=== PATIENT | female | born 1935 | race Caucasian/White ===

== ENCOUNTER 2019-01-24 15:40 | Inpatient (IN) ==
[2019-01-24] MEDS ORDERED: SODIUM CHLORIDE 0.9% 500 ML IV SCH (17:15)
[2019-01-24 17:59] LABS: Basophils # (auto) 0.03 K/uL (0-0.2); Basophils % (auto) 0.5 %; Eosinophils # (auto) 0.25 K/uL (0-0.5); Eosinophils % (auto) 3.8 %; Hematocrit (blood only) 54.5 % (37-47); Hemoglobin 18.2 g/dL (12.0-16.0); Immature Granulocytes # (auto) 0.01 K/uL (0.00-0.02); Immature Granulocytes % (auto) 0.2 %; Lymphocytes # (auto) 1.29 K/uL (1.2-3.4); Lymphocytes % (auto) 19.5 %; Mean Corpuscular Hemoglobin 31.7 pg (25-34); Mean Corpuscular Hgb Conc 33.4 g/dL (32-36); Mean Corpuscular Volume 94.9 fL (80-100); Mean Platelet Volume 9.9 fL (7.4-10.4); Monocytes # (auto) 0.77 K/uL (0.11-0.59); Monocytes % (auto) 11.6 %; Neutrophils # (auto) 4.28 K/uL (1.4-6.5); Neutrophils % (auto) 64.4 %; Platelet Count 236 K/uL (130-400); RDW Coefficient of Variation 14.7 % (11.5-14.5); RDW Standard Deviation 51.2 fL (36.4-46.3); Red Blood Count 5.74 M/uL (4.2-5.4); White Blood Count 6.63 K/uL (4.8-10.8)
--- NOTE | 2019-01-24 18:16 | XRay Report ---
TWO VIEW CHEST CLINICAL HISTORY: Generalized weakness.. FINDINGS: PA and lateral chest radiographs are compared to study dated 01/24/2018. The examination is degraded by portable technique and patient rotation. A 2-lead cardiac pacemaker is unchanged in posit ion and partially obscures the left mid chest. The heart is enlarged noting atherosclerotic calcifica tion of the thoracic aorta. The pulmonary vasculature is noncongested. Emphysema and chronic intersti tial thickening are similar to previous. There is no airspace consolidation or large pleural effusion . There is no pneumothorax. The skeletal structures are osteopenic. The bony thorax appears intact. D egenerative change and scoliosis are noted in the thoracic spine. IMPRESSION: 1. Cardiomegaly and cardiac pacemaker. There is no radiographic evidence of congestive failure. 2. Emphysema. 3. There is no airspace consolidation or pleural effusion. Electronically signed by: Jd Kingsley M.D. 01/24/2019 6:15 PM
--- NOTE | 2019-01-24 18:19 | CT Scan Report ---
CT SCAN OF THE BRAIN WITHOUT IV CONTRAST CLINICAL HISTORY: Change in mental status. COMPARISON STUDY: No priors. TECHNIQUE: Unenhanced axial CT scan of the brain is performed from the vertex to the skull base. A do se lowering technique was utilized adhering to the principles of ALARA. CT DOSE: 537.48 mGy.cm FINDINGS: Brain parenchyma: There are age-related involutional changes noting advanced confluent subcortical a nd periventricular microangiopathic change. There is no hemorrhage, mass effect, or evidence of acute territorial ischemia by CT criteria. 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 Genao-white matter differentiation is preserved. No extra-axial fluid collection is seen. Mineralizati on is noted in the basal ganglia. Ventricles, sulci, cisterns: Prominent secondary to involutional change. Intracranial vasculature: There is atherosclerotic calcification of the cavernous carotid and vertebr al arteries. Calvarium: Unremarkable. Sinuses and mastoids: There is moderate mucosal thickening in the sphenoid sinus. Sclerosis of the si nus wall indicates chronicity. The remaining visualized paranasal sinuses are clear. The mastoid air cells are well pneumatized. Orbits: The bony orbits are grossly intact. IMPRESSION: Senescent changes as above with no hemorrhage, mass effect, or evidence of acute territor ial ischemia by CT criteria. Electronically signed by: Jd Kingsley M.D. 01/24/2019 6:18 PM
[2019-01-24 18:20] LABS: Alanine Aminotransferase 26 U/L (12-78); Albumin Level 3.7 gm/dl (3.4-5.0); Aspartate Aminotransferase 24 U/L (15-37); Blood Urea Nitrogen 31 mg/dl (7-18); Calcium 9.6 mg/dl (8.5-10.1); Carbon Dioxide 27 mmol/L (21-32); Chloride 106 mmol/L (98-107); Creatinine Clr Calc Pharmacy 15.2 ml/min; Est GFR (African American) 33.2; Est GFR (Non-African American) 28.6; Glucose 87 mg/dl (70-99); Magnesium 2.4 mg/dl (1.8-2.4); Potassium 4.4 mmol/L (3.5-5.1); Sodium 140 mmol/L (136-145)
[2019-01-24 18:31] LABS: Albumin Globulin Ratio 0.9 (0.9-2); Alkaline Phosphatase 100 U/L (45-117); Bilirubin,Total 0.5 mg/dl (0.2-1); Globulin 4.3 gm/dl (2.5-4.0); Troponin I < 0.015 ng/ml (0-0.045)
--- NOTE | 2019-01-24 18:45 | Emergency Department Note ---
Entered by Manisha Mcbride acting as a scribe for Jd Ascencio MD History of Present Illness General Chief complaint: Dizziness Stated complaint: DIZZY, CONFUSED, WEAKNESS Time Seen by Provider: 01/24/19 16:56 Source: patient and family History of Present Illness Onset (ago): week(s) 2 Location: head (dizziness) Pain Consistency: + intermittent ("waves") Quality: + other (worsening) Associated symptoms: + denies other symptoms (congestion, diarrhea, urinary sx), + confusion, + weakness and + other (recent left foot numbness, increased tiredness, low PO intake); no cough, no fever/chills and no nausea/vomiting The patient is an 83 year old female on Coumadin with a history of cardiac pacemaker, PAF, and tachy-jacque syndrome who presents to the Emergency Room with complaints of dizziness. The patient's family states she has been experiencing waves of intermittent dizziness for 1 year. The patient reports that her dizzi ness worsened in the past 2 weeks. She explains that her dizziness does not come on with changes of position or movement. She also reports equal strength in bilateral extremities. [place] the [place] when she began experiencing weakness and confusion. Family states that she could not remember who the president is or the day of the week even though she always gets her hair done on Fridays. She called her PCP and was sent to the ED. Additionally, the patient has been experiencing increased recent tiredness and low PO/fluid intake due to "holiday clancy". 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 Family also states that she was complaining of recent numbness in her left foot. The patient lives in a 1 story independent residence with a friend close in age. Of note, her last PCP visit was 1 week ago. She was recently placed on Meclizine. The patient is also very thin but explains that this is normal and that she is trying to gain weight. Additionally she reports that she does not have a history of stroke or UTI. She denies cough, congestion, fever, diarrhea, vomiting, and urinary sx. The patient and family offer no additional concerns at this time. Home Medications Home Medications Medication Instructions Recorded Confirmed Type aspirin 81 mg PO QAM 01/23/18 01/24/19 History cholecalciferol (vitamin D3) 2,000 unit PO QAM 01/23/18 01/24/19 History [Vitamin D3] metoprolol succinate 25 mg PO QAM #30 tab 01/23/18 01/24/19 Rx warfarin [Coumadin] 2.5 mg PO MOWEFR@0800 01/23/18 01/24/19 History meclizine 25 mg PO TID PRN 01/24/19 01/24/19 History warfarin 5 mg PO SUTUTHSA@0800 01/24/19 01/24/19 History Allergies Allergy/AdvReac Type Severity Reaction Status Date / Time No Known Allergies Allergy Unverified 01/24/19 18:14 Past Med/Surg History Medical History Cardiac pacemaker PAF (paroxysmal atrial fibrillation) pt admitted for elective ppm due to TBS; underwent procedure without any complications. her diltiazem was stopped and she was started on toprol and am iodarone; monitored overnight and discharged home. 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 her diltiazem was stopped and she was started on toprol and amiodarone; monitored overnight and discharged home. Surgical History No significant past surgical history Social History Preferred Language: Cuban Communication Ability: Effective Beliefs That Will Affect Care: None Current Living Situation: Alone Feels Safe at Home: Yes Smoking Status: Never smoker Hx Alcohol Use: Yes Alcohol type: wine Hx Substance Use: No Review of Systems See HPI for pertinent positives & negatives. and A total of 10 systems reviewed and were otherwise negative Physical Exam Vital Signs Vital Signs - 24 hr 01/24/19 15:43 01/24/19 18:06 01/24/19 18:42 Temperature 36.8 C Temperature Source Oral Pulse Rate - Lying 60 Pulse Rate - Sitting 61 Pulse Rate - Standing 64 Pulse Rate 65 Pulse Rate [Right Finger] 62 Pulse Rhythm Regular Pulse Strength Normal Respiratory Rate 20 20 Respiratory Effort / Characteristics Non-Labored Spontaneous Non-Labored Spontaneous Respiratory Depth Normal Normal Respiratory Pattern Regular Blood Pressure - Lying 184/98 H Blood Pressure - Sitting 165/98 H Blood Pressure- Standing 189/102 H Blood Pressure 160/95 H Blood Pressure [Right Arm] 204/109 H Blood Pressure Mean 116 Blood Pressure Mean [Right Arm] 140 Blood Pressure Position Sitting Blood Pressure Position [Right Arm] Lying Pulse Oximetry 94 98 Oxygen Delivery Method Room Air Room Air Sepsis Recent Fever Within 48 Hours No Sepsis New/Unexplained Change in Mental Status No Sepsis Action Taken by Nursing No Action Required 01/24/19 19:33 Temperature Temperature Source Pulse Rate - Lying Pulse Rate - Sitting Pulse Rate - Standing Pulse Rate Pulse Rate [Right Finger] 60 Pulse Rhythm Pulse Strength Respiratory Rate 20 Respiratory Effort / Characteristics Respiratory Depth Respiratory Pattern Blood Pressure - Lying Blood Pressure - Sitting Blood Pressure- Standing Blood Pressure Blood Pressure [Right Arm] 227/110 H Blood Pressure Mean Blood Pressure Mean [Right Arm] 149 Blood Pressure Position Blood Pressure Position [Right Arm] Pulse Oximetry 96 Oxygen Delivery Method Room Air Sepsis Recent Fever Within 48 Hours Sepsis New/Unexplained Change in Mental Status Sepsis Action Taken by Nursing GENERAL: Patient is in no acute distress. Smells strongly of urine. HEENT: No acute trauma, normocephalic atraumatic, mucous membranes moist, no nasal congestion, no scleral icterus. NECK: No stridor, no adenopathy, no meningismus, trachea is midline. LUNGS: Clear to auscultation bilaterally, no wheeze, no rhonchi, breath sounds equal. HEART: 3/6 diastolic murmur with regular rate and rhythm. ABDOMEN: Soft, nontender, bowel sounds positive, no hernias, no peritonitis. EXTREMITIES: No cyanosis or edema, full range of motion of all the joints without pain or difficulty, no signs for acute trauma. NEUROLOGIC: Oriented x 3, no acute motor or sensory deficits, no focal weakness. No facial droop or speech slur. No cerebellar dysfunction or pronator drift. SKIN: No rash, no jaundice, no diaphoresis. Course Course 170: Past medical records reviewed. The patient was evaluated in room B06. A complete history and physical exam was performed. 1921: The patient's orthostatic vital signs are negative. 1929: I checked on the patient and updated her. She is agreeable for admission and I am paging [facility] now. 1918: I spoke with Dr. Trevino who accepts the patient for admission. The patient verbally expressed understanding and agreement of the treatment plan. The patient will be evaluated for further treatment. Administered Medications Discontinued Medications Hydralazine HCl (Hydralazine Hcl) 10 mg IV NOW STA Stop: 01/24/19 20:15 Last Admin: 01/24/19 20:33 Dose: 10 mg Documented by: [id number] Sodium Chloride (Nss) 500 mls @ 999 mls/hr IV .Q31M DARRYN Stop: 01/24/19 17:45 Last Infusion: 01/24/19 18:40 Dose: 0 mls/hr Documented by: [id number] Infusion: 01/24/19 18:10 Dose: 999 mls/hr Documented by: [id number] Infusion: 01/24/19 18:06 Dose: 0 mls/hr Documented by: [id number] Admin: 01/24/19 17:59 Dose: 999 mls/hr Documented by: [id number] Sodium Chloride (Nss 1000ml) 500 mls @ 999 mls/hr IV .Q31M ONE Stop: 01/24/19 19:51 Last Infusion: 01/24/19 20:13 Dose: 0 mls/hr Documented by: [id number] Admin: 01/24/19 19:35 Dose: 999 mls/hr Documented by: [id number] Metoprolol Succinate (Toprol Xl) 25 mg PO NOW STA Stop: 01/24/19 19:07 Last Admin: 01/24/19 19:35 Dose: 25 mg Documented by: [id number] Metoprolol Tartrate (Lopressor) Confirm Administered Dose 50 mg .ROUTE .STK-MED ONE Stop: 01/24/19 19:15 Last Admin: 01/24/19 19:34 Dose: Not Given Documented by: [id number] Medical Decision Making Differential Diagnosis Differential diagnosis includes but is not limited to UTI, dehydration, orthostasis, anemia, electrolyte imbalance, renal failure, vertigo, stroke, intracranial bleeding. Medical Records Attestation: I reviewed the patient's medical records. Home Medications Current Medication List: was personally reviewed by me Laboratory Data Attestation: I reviewed the patient's lab results. Result diagrams: 01/24/19 17:46 01/24/19 17:46 Lab Results 01/24/19 01/24/19 01/24/19 Range/Units 17:46 17:46 17:46 WBC 6.63 (4.8-10.8) K/uL RBC 5.74 H (4.2-5.4) M/uL Hgb 18.2 H (12.0-16.0) g/dL Hct 54.5 H (37-47) % MCV 94.9 (80-100) fL MCH 31.7 (25-34) pg MCHC 33.4 (32-36) g/dL RDW Std Deviation 51.2 H (36.4-46.3) fL RDW Coeff of Filiberto 14.7 H (11.5-14.5) % Plt Count 236 (130-400) K/uL MPV 9.9 (7.4-10.4) fL Immature Gran % (Auto) 0.2 % Neut % (Auto) 64.4 % Lymph % (Auto) 19.5 % Hinds % (Auto) 11.6 % Eos % (Auto) 3.8 % Baso % (Auto) 0.5 % Immature Gran # (Auto) 0.01 (0.00-0.02) K/uL Neut # (Auto) 4.28 (1.4-6.5) K/uL Lymph # (Auto) 1.29 (1.2-3.4) K/uL Hinds # (Auto) 0.77 H (0.11-0.59) K/uL Eos # (Auto) 0.25 (0-0.5) K/uL Baso # (Auto) 0.03 (0-0.2) K/uL PT Cancelled INR Cancelled APTT Cancelled PTT Ratio Cancelled Sodium 140 (136-145) mmol/L Potassium 4.4 (3.5-5.1) mmol/L Chloride 106 (98-107) mmol/L Carbon Dioxide 27 (21-32) mmol/L Anion Gap 7.0 (3-11) BUN 31 H (7-18) mg/dl Creatinine 1.64 H (0.6-1.2) mg/dl Est Cr Clr Drug Dosing 15.2 ml/min Est GFR ( Amer) 33.2 Est GFR (Non-Af Amer) 28.6 BUN/Creatinine Ratio 19.0 (10-20) Glucose 87 (70-99) mg/dl Calcium 9.6 (8.5-10.1) mg/dl Magnesium 2.4 (1.8-2.4) mg/dl Total Bilirubin 0.5 (0.2-1) mg/dl AST 24 (15-37) U/L ALT 26 (12-78) U/L Alkaline Phosphatase 100 (45-117) U/L Troponin I < 0.015 (0-0.045) ng/ml Total Protein 8.0 (6.4-8.2) gm/dl Albumin 3.7 (3.4-5.0) gm/dl Globulin 4.3 H (2.5-4.0) gm/dl Albumin/Globulin Ratio 0.9 (0.9-2) TSH 3.000 (0.300-4.500) uIu/ml Urine Color Urine Appearance (Clear) Urine pH (4.5-7.5) Ur Specific [place] (1.000-1.030) Urine Protein (Negative) Urine Glucose (UA) (Negative) Urine Ketones (Negative) Urine Blood (Negative) Urine Nitrite (Negative) Urine Bilirubin (Negative) Urine Urobilinogen (Negative) Ur Leukocyte Esterase (Negative) Urine WBC (Auto) (0-5) /hpf Urine RBC (Auto) (0-4) /hpf U Hyaline Cast (Auto) (0-5) /lpf U Epithel Cells (Auto) (0-5) /lpf Urine Bacteria (Auto) (Negative) Ur Renal Epithelial Cell (0-5) /lpf Digoxin (0.8-2.0) ng/ml 01/24/19 01/24/19 01/24/19 Range/Units 17:46 18:21 18:21 WBC (4.8-10.8) K/uL RBC (4.2-5.4) M/uL Hgb (12.0-16.0) g/dL Hct (37-47) % MCV (80-100) fL MCH (25-34) pg MCHC (32-36) g/dL RDW Std Deviation (36.4-46.3) fL RDW Coeff of Filiberto (11.5-14.5) % Plt Count (130-400) K/uL MPV (7.4-10.4) fL Immature Gran % (Auto) % Neut % (Auto) % Lymph % (Auto) % Hinds % (Auto) % Eos % (Auto) % Baso % (Auto) % Immature Gran # (Auto) (0.00-0.02) K/uL Neut # (Auto) (1.4-6.5) K/uL Lymph # (Auto) (1.2-3.4) K/uL Hinds # (Auto) (0.11-0.59) K/uL Eos # (Auto) (0-0.5) K/uL Baso # (Auto) (0-0.2) K/uL PT 58.4 H INR 6.5 H* APTT 59.6 H* PTT Ratio 2.2 Sodium (136-145) mmol/L Potassium (3.5-5.1) mmol/L Chloride (98-107) mmol/L Carbon Dioxide (21-32) mmol/L Anion Gap (3-11) BUN (7-18) mg/dl Creatinine (0.6-1.2) mg/dl Est Cr Clr Drug Dosing ml/min Est GFR ( Amer) Est GFR (Non-Af Amer) BUN/Creatinine Ratio (10-20) Glucose (70-99) mg/dl Calcium (8.5-10.1) mg/dl Magnesium (1.8-2.4) mg/dl Total Bilirubin (0.2-1) mg/dl AST (15-37) U/L ALT (12-78) U/L Alkaline Phosphatase (45-117) U/L Troponin I (0-0.045) ng/ml Total Protein (6.4-8.2) gm/dl Albumin (3.4-5.0) gm/dl Globulin (2.5-4.0) gm/dl Albumin/Globulin Ratio (0.9-2) TSH (0.300-4.500) uIu/ml Urine Color Urine Appearance (Clear) Urine pH (4.5-7.5) Ur Specific [place] (1.000-1.030) Urine Protein (Negative) Urine Glucose (UA) (Negative) Urine Ketones (Negative) Urine Blood (Negative) Urine Nitrite (Negative) Urine Bilirubin (Negative) Urine Urobilinogen (Negative) Ur Leukocyte Esterase (Negative) Urine WBC (Auto) (0-5) /hpf Urine RBC (Auto) (0-4) /hpf U Hyaline Cast (Auto) (0-5) /lpf U Epithel Cells (Auto) (0-5) /lpf Urine Bacteria (Auto) (Negative) Ur Renal Epithelial Cell (0-5) /lpf Digoxin 0.1 L (0.8-2.0) ng/ml 01/24/19 Range/Units 18:48 WBC (4.8-10.8) K/uL RBC (4.2-5.4) M/uL Hgb (12.0-16.0) g/dL Hct (37-47) % MCV (80-100) fL MCH (25-34) pg MCHC (32-36) g/dL RDW Std Deviation (36.4-46.3) fL RDW Coeff of Filiberto (11.5-14.5) % Plt Count (130-400) K/uL MPV (7.4-10.4) fL Immature Gran % (Auto) % Neut % (Auto) % Lymph % (Auto) % Hinds % (Auto) % Eos % (Auto) % Baso % (Auto) % Immature Gran # (Auto) (0.00-0.02) K/uL Neut # (Auto) (1.4-6.5) K/uL Lymph # (Auto) (1.2-3.4) K/uL Hinds # (Auto) (0.11-0.59) K/uL Eos # (Auto) (0-0.5) K/uL Baso # (Auto) (0-0.2) K/uL PT INR APTT PTT Ratio Sodium (136-145) mmol/L Potassium (3.5-5.1) mmol/L Chloride (98-107) mmol/L Carbon Dioxide (21-32) mmol/L Anion Gap (3-11) BUN (7-18) mg/dl Creatinine (0.6-1.2) mg/dl Est Cr Clr Drug Dosing ml/min Est GFR ( Amer) Est GFR (Non-Af Amer) BUN/Creatinine Ratio (10-20) Glucose (70-99) mg/dl Calcium (8.5-10.1) mg/dl Magnesium (1.8-2.4) mg/dl Total Bilirubin (0.2-1) mg/dl AST (15-37) U/L ALT (12-78) U/L Alkaline Phosphatase (45-117) U/L Troponin I (0-0.045) ng/ml Total Protein (6.4-8.2) gm/dl Albumin (3.4-5.0) gm/dl Globulin (2.5-4.0) gm/dl Albumin/Globulin Ratio (0.9-2) TSH (0.300-4.500) uIu/ml Urine Color Dark Yellow Urine Appearance Cloudy A (Clear) Urine pH 5.0 (4.5-7.5) Ur Specific [place] 1.024 (1.000-1.030) Urine Protein 2+ H (Negative) Urine Glucose (UA) Negative (Negative) Urine Ketones Trace H (Negative) Urine Blood 3+ H (Negative) Urine Nitrite Negative (Negative) Urine Bilirubin Negative (Negative) Urine Urobilinogen Negative (Negative) Ur Leukocyte Esterase Negative (Negative) Urine WBC (Auto) 1-5 (0-5) /hpf Urine RBC (Auto) >30 H (0-4) /hpf U Hyaline Cast (Auto) 10-30 H (0-5) /lpf U Epithel Cells (Auto) >30 H (0-5) /lpf Urine Bacteria (Auto) Negative (Negative) Ur Renal Epithelial Cell 5-10 H (0-5) /lpf Digoxin (0.8-2.0) ng/ml Imaging Data Radiologist's Impression: Radiology results as stated below per my review and t he radiologist's interpretation: TWO VIEW CHEST CLINICAL HISTORY: Generalized weakness.. FINDINGS: PA and lateral chest radiographs are compared to study dated 01/24/2018. The examination is degraded by portable technique and patient rotation. A 2-lead cardiac pacemaker is unchanged in position and partially obscures the left mid chest. The heart is enlarged noting atherosclerotic calcification of the thoracic aorta. The pulmonary vasculature is noncongested. Emphysema and chronic interstitial thickening are similar to previous. There is no airspace consolidation or large pleural effusion. There is no pneumothorax. The skeletal structures are osteopenic. The bony thorax appears intact. Degenerative change and scoliosis are noted in the thoracic spine. IMPRESSION: 1. Cardiomegaly and cardiac pacemaker. There is no radiographic evidence of congestive failure. 2. Emphysema. 3. There is no airspace consolidation or pleural effusion. Electronically signed by: Jd Kingsley M.D. 01/24/2019 6:[address] SCAN OF THE BRAIN WITHOUT IV CONTRAST CLINICAL HISTORY: Change in mental status. COMPARISON STUDY: No priors. TECHNIQUE: Unenhanced axial CT scan of the brain is performed from the vertex to the skull base. A dose lowering technique was utilized adhering to the principles of ALARA. CT DOSE: 537.48 mGy.cm FINDINGS: Brain parenchyma: There are age-related involutional changes noting advanced confluent subcortical and periventricular microangiopathic change. There is no hemorrhage, mass effect, or evidence of acute territorial ischemia by CT criteria. 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 Genao- white matter differentiation is preserved. No extra-axial fluid collection is seen. Mineralization is noted in the basal ganglia. Ventricles, sulci, cisterns: Prominent secondary to involutional change. Intracranial vasculature: There is atherosclerotic calcification of the cavernous carotid and vertebral arteries. Calvarium: Unremarkable. Sinuses and mastoids: There is moderate mucosal thickening in the sphenoid sinus. Sclerosis of the sinus wall indicates chronicity. The remaining visualized paranasal sinuses are clear. The mastoid air cells are well pneumatized. Orbits: The bony orbits are grossly intact. IMPRESSION: Senescent changes as above with no hemorrhage, mass effect, or evidence of acute territorial ischemia by CT criteria. Electronically signed by: Jd Kingsley M.D. 01/24/2019 6:18 PM ECG Data Attestation: I personally reviewed and interpreted this ECG as follows: Indication: + other (dizziness) Rate (beats per minute): 61 Rhythm: + other (atrial pacemaker ) ECG Findings: + Other (old anterior infarct, old inferior infarct, QTc is 459); no PVCs Blood Pressure Blood Pressure Findings: Elevated blood pressure Blood Pressure Disposition: further management by hospitalist [facility] Narrative There is no leukocytosis. The patient's hemoglobin is high, this is likely consistent with dehydration. INR is elevated at 6.5, she is over anticoagulated. Renal panel testing shows some acute kidney injury with a creatinine of 1.64. No concerning liver enzyme elevation. The patient appeared to be in a euthyroid state. Urinalysis showed evidence for hematuria, no e vidence for infection. Digoxin level was quite low at 0.1. EKG showed a functioning atrial pacemaker. Cardiac enzyme testing x1 is not consistent with acute cardiac injury. Chest film did not show pneumonia or CHF. Brain CT showed no acute bleed or mass-effect. On exam, there were no focal neurologic deficits. The patient presents with weakness, confusion and dizziness. She appears quite dehydrated by work-up and really by history. She was given IV saline, 2/500 cc saline boluses were given. Her blood pressure began to elevate and she was due for her metoprolol, this was given orally. She received 25 mg orally. Given the confusion, given the weakness, given her age and complaints, I do think a hospital stay is warranted. Certainly, small distal stroke is a consideration although, I do think dehydration is the likely cause of her difficulty. She is certainly not a candidate for TPA as her symptoms have been present for 2 weeks. I did speak to the patient, I talked with her family. Case management has been involved. The on-call hospitalist was consulted. Impression & Plan Weakness, Dizziness, Dehydration, Supratherapeutic INR, FIOR (acute kidney injury) Discharge Plan Visit Data Chief Complaint: Dizziness Stated Complaint: DIZZY, CONFUSED, WEAKNESS ED Provider: Jd Ascencio Discharge Problem: Weakness, Dizziness, Dehydration, Supratherapeutic INR, FIOR (acute kidney injury) Patient Disposition: Being Evaluated by Hospitalist Forms Stand Alone Forms: My [facility] Prescriptions Prescriptions: No Action warfarin [Coumadin] 2.5 mg Tablet 2.5 mg PO MOWEFR@0800 RF: 0 aspirin 81 mg Tablet,Chewable 81 mg PO QAM RF: 0 cholecalciferol (vitamin D3) [Vitamin D3] 2,000 unit Tablet 2,000 unit PO QAM RF: 0 metoprolol succinate 25 mg Tablet Extended Release 24 Hr 25 mg PO QAM Qty: 30 RF: 0 warfarin 2.5 mg tablet 5 mg PO SUTUTHSA@0800 RF: 0 meclizine 25 mg tablet 25 mg PO TID PRN (Reason: Dizziness) RF: 0 Referrals Referrals: Yousif Garner MD [Primary Care Provider] - The luisibe's documentation has been prepared under my direction and personally reviewed by me in its entirety. I confirm that the note above accurately reflects all work, treatment, procedures, and medical decision making performed by me.
[2019-01-24 19:04] LABS: Prothrombin Time 58.4 Seconds (9.0-12.0)
[2019-01-24 19:05] LABS: Appearance Urine Cloudy (Clear); Bacteria Urine Automated Negative (Negative); Blood Urine 3+ (Negative); Color Urine Dark Yellow; Epithelial Cell Urine Auto >30 /lpf (0-5); Glucose Urine UA Negative (Negative); Ketones Urine Trace (Negative); Leukocyte Esterase Urine Negative (Negative); Nitrite Urine Negative (Negative); Protein Urine 2+ (Negative); RBC Urine Automated >30 /hpf (0-4); Specific Gravity Urine 1.024 (1.000-1.030); Urobilinogen Urine Negative (Negative)
[2019-01-24] MEDS ORDERED: METOPROLOL SUCC 25MG EXT REL TAB PO STA (19:06)
[2019-01-24 19:07] LABS: Partial Thromboplastin Ratio 2.2
[2019-01-24 19:07] LABS: Bilirubin Urine Negative (Negative); Ictotest Urine Negative (Negative)
[2019-01-24 19:12] LABS: INR 6.5 (0.9-1.1); Partial Thromboplastin Time 59.6 Seconds (21.0-31.0)
[2019-01-24] MEDS ORDERED: METOPROLOL TARTRATE 50 MG TAB ONE (19:14)
[2019-01-24] MEDS ORDERED: SODIUM CHLORIDE 0.9% 1000ML 500 ML IV ONE (19:21)
[2019-01-24] MEDS ORDERED: HydrALAZINE HCL 20 MG/ML VIAL IV STA (20:14)
[2019-01-24] MEDS ORDERED: ONDANSETRON INJ 2 MG/ML 2 ML VIAL IV PRN (22:05)
[2019-01-24] MEDS ORDERED: HEPARIN SOD 5,000 UNIT/0.5 ML VIAL SQ SCH (22:05)
[2019-01-24] MEDS ORDERED: ACETAMINOPHEN 325 MG TAB PO PRN (22:05)
[2019-01-24] MEDS ORDERED: POLYETHYLENE (MIRALAX) 17 GM PACK PO PRN (22:05)
--- NOTE | 2019-01-24 22:14 | History & Physical Report ---
Date of Service January 24, 2019 Assessment & Plan (1) Dizziness: (2) Dehydration: This is an 83-year-old female who is significant past medical history of PAF anticoagulated on warfarin, TBS status post permanent pacemaker placement, HTN, HLD, CKD stage IV baseline creatinine 1.6, venous insufficiency, senile osteoporosis who presents to [facility] ED secondary to dizziness x 1 week. In ED upon initial evaluation blood pressure was 160/95 and trended upward to 227/110. Otherwise she remained hemodynamically stable. H&H elevated at 18.2 and 54.5, WBC normal at 6.63, platelet 236, INR elevated 6.5, BUN 31, creatinine 1.64, TSH WNL, troponin WNL. Urinalysis negative for infection, +2 protein, +3 blood, hyaline casts, > 30 rbc, 5-[address] head negative for acute abnormality or hemorrhage, notable senescent changes and chronic sphenoid sinusitis. CXR: emphysema but no acute cardiopulmonary abnormality. In ED received 1L IVF Further received metoprolol succinate 25mg and IV hydralazine 10mg repeat BP up my evaluation was 146/85 Sx likely in setting of dehydration with evidence of hemoconcentration of cbc vs BPPV. Without neurologic deficit cva less likely HTN urgency likely in setting of poorly controlled HTN (only outpt med is metoprolol - previous PCP visit reveal BP consistently > 150s/90s over past 6 months) admit to PCU continue IVF 1/2NS 100cc/hr repeat cbc, bmp in a.m. if sx persist recommend PT eval for clay maneuver (3) HTN (hypertension): pt with HTN urgency in ED, improved with IV hydralazine 10mg x 1 continue metoprolol, add norvasc 5mg starting in a.m. monitor closely (4) Supratherapeutic INR: INR 6.5 no evidence of gross bleeding +Microscopic hematuria on UA hold warfarin repeat INR in a.m. (5) Microscopic hematuria: unknown etiology ? in setting of supratherapeutic INR once INR normalizes would repeat UA refer to urology as outpt upon discharge (6) Chronic kidney disease (CKD), stage IV (severe): baseline cr 1.6-1.7 bun/cr 31/1.64 continue IVF repeat bmp in am (7) PAF (paroxysmal atrial fibrillation): continue metoprolol for rate control pacemaker in place hold warfarin due to elevated INR (8) Tachy-jacque syndrome: s/p PPM (9) DVT prophylaxis: Hold Warfarin, INR in a.m. SCD/TEDS Disposition: Admit to PCU Follow up: PCP Dr. Kelley upon discharge, along with appropriate urology follow up due to microscopic hematuria Pt was seen and examined in collaboration with Dr. Lofton, please see addendum History of Present Illness Chief Complaint: Dizziness x 1 week. Primary Care Provider: Yousif Garner MD This is an 83-year-old female who is significant past medical history of PAF anticoagulated on warfarin, TBS status post permanent pacemaker placement, HTN, HLD, CKD stage IV baseline creatinine 1.6, venous insufficiency, senile osteoporosis who presents to [facility] ED secondary to dizziness x 1 week. Dizziness comes and goes, described a spinning sensation, no falls, unable to pinpoint anything that makes it worse including positional change, improved with rest and not modified by meclizine. She denies any recent illness. She lives alone at home and is . She continues to drive. Symptoms are very transient lasting minutes to seconds and resolve with staying still. She does have associated nausea with symptoms. Denies any recent upper respiratory symptoms including sinus congestion, rhinorrhea, ear pain, cough. She denies any change in vision or hearing with symptoms. Denies any difficulty walking. Denies fever, chills, sweats, lightheadedness, presyncope, chest pain, shortness of breath, palpitations, hemoptysis, emesis, abdominal pain. She denies any change in bowel or urinary habits including dysuria, increased urgency and frequency with urination, hematuria, melena. Denies any epistaxis. Has been taking all medications as prescribed including warfarin. She does not monitor her blood pressure at home. Appetite has overall been, "so-so." She is working with dietitian as outpatient to try to gain weight and elicit she is gained a few pounds. Admits to not being a good, "water drinker." In ED upon initial evaluation blood pressure was 160/95 and trended upward to 227/110. Otherwise she remained hemodynamically stable. H&H elevated at 18.2 and 54.5, WBC normal at 6.63, platelet 236, INR elevated 6.5, BUN 31, creatinine 1.64, TSH WNL, troponin WNL. Urinalysis negative for infection, +2 protein, +3 blood, hyaline casts, > 30 rbc, 5-[address] head negative for acute abnormality or hemorrhage, notable senescent changes and chronic sphenoid sinusitis. CXR: emphysema but no acute cardiopulmonary abnormality. Previous the medical center records reviewed. Lives alone, , NS/ND Previous surgery: R JEAN-PAUL Both parents : Unknown cause of or PMH Allergies Allergy/AdvReac Type Severity Reaction Status Date / Time No Known Allergies Allergy Unverified 01/24/19 18:14 Home Medications Home Medications Medication Instructions Recorded Confirmed Type aspirin 81 mg PO QAM 01/23/18 01/24/19 History cholecalciferol (vitamin D3) 2,000 unit PO QAM 01/23/18 01/24/19 History [Vitamin D3] metoprolol succinate 25 mg PO QAM #30 tab 01/23/18 01/24/19 Rx warfarin [Coumadin] 2.5 mg PO MOWEFR@0800 01/23/18 01/24/19 History meclizine 25 mg PO TID PRN 01/24/19 01/24/19 History warfarin 5 mg PO SUTUTHSA@0800 01/24/19 01/24/19 History Past Med/Surg History Medical History (Updated 01/24/19 @ 22:22 by Silvia Lemus PA-C) Cardiac pacemaker Chronic kidney disease (CKD), stage IV (severe) HLD (hyperlipidemia) HTN (hypertension) Osteoporosis PAF (paroxysmal atrial fibrillation) pt admitted for elective ppm due to TBS; underwent procedure without any complications. her diltiazem was stopped and she was started on toprol and amiodarone; monitored overnight and discharged home. 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 her diltiazem was stopped and she was started on toprol and amiodarone; monitored overnight and discharged home. Surgical History History of total right hip arthroplasty Family History Other Unknown family medical history Social History (Updated 01/24/19 @ 22:16 by Silvia Lemus PA-C) Preferred Language: Kyrgyz Communication Ability: Effective Shipping Associate Required: No Beliefs That Will Affect Care: None Current Living Situation: Other Current Living Situation Comment: In house with friend Other Information That Helps Us Care for You: No Feels Safe at Home: Yes Safety Concerns: Feels Safe At This Time Smoking Status: Never smoker Hx Alcohol Use: No Hx Substance Use: No Review of Systems Review of Systems: All systems reviewed & are unremarkable except as noted in HPI & below Physical Exam Physical Exam: Constitutional: Petite, elderly, female, vitals as above, NAD, sitting up in bed, pleasant, conversing easily Head: Normocephalic, Atraumatic Eyes: PERRL, conjunctivae normal, anicteric sclerae ENMT: external ear and nose normal, oropharynx normal with dry mucous membranes Neck: trachea midline, no thyromegaly normal visual inspection Respiratory: normal respiratory effort, lungs clear to auscultation, distant breath sounds, diminished at bases, no wheeze, rales, rhonchi. Normal insp/exp effort, no accessory muscle use Cardiovascular: RRR, 1/6 NIYAH noted RUSB, no edema Vessels: no JVD or carotid b ruit Chest: normal inspection of chest Abdomen: normal bowel sounds, soft, nontender, no hepatosplenomegaly Musculoskeletal: no cyanosis or clubbing, extremities motor strength 5/5 Skin: no rashes, warm and dry normal turgor Neurologic: PERRL, EOMI, accommodation nl, no face palsy, no dysarthria CN's II-XI intact bilaterally and moves all extremities, dizziness reproducible with head position changes specifically head movement to left, and going from lying to sitting position Psychiatric: A+Ox3, euthymic affect Lymphatic: no cervical or axillary lymphadenopathy : deferred Results & Data Vital Signs (Past 12 Hours) Vital Signs Temp Pulse Pulse Resp BP BP Pulse Ox 01/24/19 21:00 60 20 166/85 H 96 01/24/19 19:33 60 20 227/110 H 96 01/24/19 18:42 62 20 204/109 H 98 01/24/19 15:43 36.8 C 65 20 160/95 H 94 Laboratory Results Short CBC 01/24/19 01/24/19 Range/Units 17:46 17:46 WBC 6.63 (4.8-10.8) K/uL Hgb 18.2 H (12.0-16.0) g/dL Hct 54.5 H (37-47) % Plt Count 236 (130-400) K/uL Creatinine 1.64 H (0.6-1.2) mg/dl BMP 01/24/19 17:46 Sodium 140 Potassium 4.4 Chloride 106 Carbon Dioxide 27 BUN 31 H Creatinine 1.64 H Glucose 87 Calcium 9.6 Cardiac Enzymes 01/24/19 Range/Units 17:46 Troponin I < 0.015 (0-0.045) ng/ml Liver Function 01/24/19 Range/Units 17:46 Total Bilirubin 0.5 (0.2-1) mg/dl AST 24 (15-37) U/L ALT 26 (12-78) U/L Alkaline Phosphatase 100 (45-117) U/L Albumin 3.7 (3.4-5.0) gm/dl Urine 01/24/19 Range/Units 18:48 Urine Color Dark Yellow Urine Appearance Cloudy A (Clear) Urine pH 5.0 (4.5-7.5) Ur Specific [place] 1.024 (1.000-1.030) Urine Protein 2+ H (Negative) Urine Glucose (UA) Negative (Negative) Diagnostic Findings CXR: IMPRESSION: 1. Cardiomegaly and cardiac pacemaker. There is no radiographic evidence of congestive failure. 2. Emphysema. 3. There is no airspace consolidation or pleural effusion. Head CT: IMPRESSION: Senescent changes as above with no hemorrhage, mass effect, or evidence of acute territorial ischemia by CT criteria. Medications Administered Discontinued Medications Hydralazine HCl (Hydralazine Hcl) 10 mg IV NOW STA Stop: 01/24/19 20:15 Last Admin: 01/24/19 20:33 Dose: 10 mg Documented by: [id number] Sodium Chloride (Nss) 500 mls @ 999 mls/hr IV .Q31M DARRYN Stop: 01/24/19 17:45 Last Infusion: 01/24/19 18:40 Dose: 0 mls/hr Documented by: [id number] Infusion: 01/24/19 18:10 Dose: 999 mls/hr Documented by: [id number] Infusion: 01/24/19 18:06 Dose: 0 mls/hr Documented by: [id number] Admin: 01/24/19 17:59 Dose: 999 mls/hr Documented by: [id number] Sodium Chloride (Nss 1000ml) 500 mls @ 999 mls/hr IV .Q31M ONE Stop: 01/24/19 19:51 Last Infusion: 01/24/19 20:13 Dose: 0 mls/hr Documented by: [id number] Admin: 01/24/19 19:35 Dose: 999 mls/hr Documented by: [id number] Metoprolol Succinate (Toprol Xl) 25 mg PO NOW STA Stop: 01/24/19 19:07 Last Admin: 01/24/19 19:35 Dose: 25 mg Documented by: [id number] Metoprolol Tartrate (Lopressor) Confirm Administered Dose 50 mg .ROUTE .STK-MED ONE Stop: 01/24/19 19:15 Last Admin: 01/24/19 19:34 Dose: Not Given Documented by: [id number] ECG Findings: + nonspecific-ST abn and + paced rhythm Comparison ECG Date: from (2017) Additional Comments: new anterior t wave inversions V2-4 Code Status & VTE Plan VTE Prophylaxis Plan VTE Prophylaxis will be ordered: Yes Supervising Physician Co-Signing Physician Notes I have seen and examined the patient and have discussed the case with the provider above. I agree with the assessment and plan as stated with the following exceptions. 83 yo F with two weeks of intermittent dizziness worse in the last couple of days. No recent illnesses. Denies other stroke symptoms including no difficulty walking, swallowing, speaking, finding words, no difficulty findings words, visual changes and no headaches. She reports vertigo is more related to position of her head. She had a critical blood pressure in the ER at 227 systolic which responded to hydralazine IV. She is not on antihypertensives as outpatient. She denies nausea, UTI symptoms, chest pain or other issues. She has CKD Stage IV and is at her baseline. She has been seen by nephro earlier this year. She also denies hematuria but was found to have microscopic hematuria on labwork today. She has the elevated INR which makes bleeding more likely and she did have a straight cath, which may have caused some of the blood seen. It would be prudent to repeat the urinalysis at some point in the next couple of weeks to ensure complete resolution and if not, see a urologist. Physical exam reveals a well-appearing but frail and elderly female in NAD. She has no neurologic deficits and strength is intact throughout. Gait was not assessed by me but nurse states she did fairly well without assistance ambulating to her bed earlier. Cardiac auscultation revelas S1/2 without evidence of murmur and no peripheral edema. She has notable progressed joint disease in her hands. Abdomen is soft, nontender and nondistended. Lungs are clear to auscultation bilaterally. Etiologies for dizziness include but are not limited to uncontrolled HTN in the setting of dehydration and an elevated INR with questionable nutrition status. Cont plan as above to hydrate her overnight, treat her BP with amlodipine and hydralazine PRN, and allow INR to trend down with reassessment of her dizziness in the morning. She is on telemetry monitoring, also. She states she wants to go home no matter what tomorrow because of her dog. Close follow-up with PCP is recomm ended. Rolly, DO
[2019-01-24] MEDS: SODIUM CHLORIDE 0.45 % 1,000 ML IV SCH (23:04)
[2019-01-25 06:16] LABS: Hematocrit (blood only) 46.6 % (37-47); Hemoglobin 15.5 g/dL (12.0-16.0); Mean Corpuscular Hemoglobin 30.7 pg (25-34); Mean Corpuscular Hgb Conc 33.3 g/dL (32-36); Mean Corpuscular Volume 92.3 fL (80-100); Mean Platelet Volume 9.6 fL (7.4-10.4); Platelet Count 198 K/uL (130-400); RDW Coefficient of Variation 14.8 % (11.5-14.5); RDW Standard Deviation 50.4 fL (36.4-46.3); Red Blood Count 5.05 M/uL (4.2-5.4); White Blood Count 6.39 K/uL (4.8-10.8)
[2019-01-25 06:41] LABS: BUN Creatinine Ratio 19.2 (10-20); Calcium 8.5 mg/dl (8.5-10.1); Creatinine Clr Calc Pharmacy 19.9 ml/min; Est GFR (African American) 43.9; Est GFR (Non-African American) 37.9; Potassium 3.8 mmol/L (3.5-5.1)
[2019-01-25] MEDS ORDERED: AMLODIPINE BESYLATE 5 MG TAB PO SCH (09:00)
[2019-01-25] MEDS: CHOLECALCIFEROL 1,000 UNITS TAB PO SCH (09:14)
[2019-01-25] MEDS: METOPROLOL SUCC 25MG EXT REL TAB PO SCH (09:14)
[2019-01-25] MEDS: SODIUM CHLORIDE 0.45 % 1,000 ML IV SCH (09:16)
[2019-01-25 09:48] LABS: Prothrombin Time 80.2 Seconds (9.0-12.0)
[2019-01-25 09:52] LABS: INR 9.2 (0.9-1.1)
[2019-01-25] MEDS ORDERED: PHYTONADIONE 5 MG TAB PO STA (09:58)
[2019-01-25] MEDS: cefTRIAXone SODIUM 1,000 MG in DEXTROSE 5% 50 ML IV SCH (10:27)
[2019-01-25] MEDS ORDERED: AMLODIPINE BESYLATE 5 MG TAB PO ONE (11:24)
[2019-01-25] MEDS ORDERED: HydrALAZINE 10 MG TAB PO PRN (15:24)
--- NOTE | 2019-01-25 15:42 | Hospitalist Progress Note ---
Date of Service January 25, 2019 Assessment & Plan (1) Dizziness: (2) Dehydration: Patient is an 83-year-old female with H/O PAF anticoagulated on warfarin, TBS status post permanent pacemaker placement, HTN, HLD, CKD stage IV baseline creatinine 1.6, venous insufficiency, senile osteoporosis who presents to [facility] ED secondary to dizziness x 1 week. Dizziness Likely due to BPPV, dehydration Uncontrolled hypertension likely contributing CT head negative for acute abnormality or hemorrhage, notable senescent changes and chronic sphenoid sinusitis. Received IV fluids Meclizine PRN Pacemaker interrogation requested Monitor on telemetry (3) HTN (hypertension): Uncontrolled HTN Likely secondary to chronic kidney disease Started on amlodipine Continue metoprolol Consider changing metoprolol to Coreg if remains uncontrolled PO Hydralazine PRN Consider nephrology input if necessary (4) Supratherapeutic INR: Supratherapeutic INR Hematuria in the setting of Coumadin induced supratherapeutic INR INR: 9.2 Given 1 dose of p.o. vitamin K Coumadin held Monitor INR, CBC (5) Microscopic hematuria: If persists after INR correction, consider urology evaluation (6) Chronic kidney disease (CKD), stage IV (severe): Baseline cr 1.6-1.7 Received IVF Monitor renal function Avoid nephrotoxic agents as able (7) PAF (paroxysmal atrial fibrillation): S/P Pacemaker Continue metoprolol Coumadin on hold secondary to hematuria (8) Tachy-jacque syndrome: s/p PPM Pacemaker interrogation (9) DVT prophylaxis: Supratherapeutic INR SCDs for now CODE STATUS Full code Disposition: PT OT prior to discharge Subjective Patient is seen and examined at bedside Patient is intermittently confused as per staff She denies any headache, dizziness, blurry vision, chest pain, shortness of breath this morning Mild hematuria noted No family at bedside Review of Systems Review of Systems: All systems reviewed & are unremarkable except as noted in HPI & below Physical Exam Physical Exam: Physical Exam: Vitals signs as noted above General Appearance:Thin, frail, no apparent distress, Elderly Head: normocephalic, Atraumatic Eyes: normal inspection, EOMI Neck: supple, Trachea midline Respiratory/Chest: Normal breath sounds, CTA Cardiovascular: S1, S2, + murmur Abdomen/GI:Soft, Non tender, Bowel sounds present Extremities/Musculoskelatal:normal inspection, no edema Neurologic/Psych:AAOX3, grossly no focal neurological deficits Skin: normal color, warm Results & Data Vital Signs (Past 12 Hours) Vital Signs Temp Pulse Resp BP Pulse Ox 01/25/19 12:07 36.8 C 65 18 161/112 H 95 01/25/19 06:51 36.8 C 64 18 180/104 H 96 01/25/19 03:55 37.2 C 71 18 165/100 H 94 Laboratory Results Short CBC 01/24/19 01/25/19 Range/Units 17:46 05:54 WBC 6.63 6.39 (4.8-10.8) K/uL Hgb 18.2 H 15.5 (12.0-16.0) g/dL Hct 54.5 H 46.6 (37-47) % Plt Count 236 198 (130-400) K/uL BMP 01/24/19 01/25/19 17:46 05:54 Sodium 140 140 Potassium 4.4 3.8 Chloride 106 110 H Carbon Dioxide 27 25 BUN 31 H 25 H Creatinine 1.64 H 1.30 H D Glucose 87 85 Calcium 9.6 8.5 Cardiac Enzymes 01/24/19 01/24/19 01/25/19 Range/Units 17:46 23:27 05:54 Troponin I < 0.015 < 0.015 < 0.015 (0-0.045) ng/ml Liver Function 01/24/19 Range/Units 17:46 Total Bilirubin 0.5 (0.2-1) mg/dl AST 24 (15-37) U/L ALT 26 (12-78) U/L Alkaline Phosphatase 100 (45-117) U/L Albumin 3.7 (3.4-5.0) gm/dl Urine 01/24/19 Range/Units 18:48 Urine Color Dark Yellow Urine Appearance Cloudy A (Clear) Urine pH 5.0 (4.5-7.5) Ur Specific [place] 1.024 (1.000-1.030) Urine Protein 2+ H (Negative) Urine Glucose (UA) Negative (Negative)
[2019-01-25] MEDS ORDERED: hydrOXYzine HCl 10 MG TAB PO PRN (17:44)
[2019-01-26] MEDS ORDERED: OLANZapine 10 MG/2.1 ML SDV IM PRN (04:06)
--- NOTE | 2019-01-26 04:07 | Communication Note ---
Date of Service: January 26, 2019 Patient noted to be agitated as per RN. AP Delirium Zyprexa as needed Hold hydroxyzine for now.
[2019-01-26 05:47] LABS: Hematocrit (blood only) 52.2 % (37-47); Hemoglobin 18.1 g/dL (12.0-16.0); Mean Corpuscular Hemoglobin 31.6 pg (25-34); Mean Corpuscular Hgb Conc 34.7 g/dL (32-36); Mean Corpuscular Volume 91.1 fL (80-100); Mean Platelet Volume 9.8 fL (7.4-10.4); Platelet Count 244 K/uL (130-400); RDW Coefficient of Variation 14.2 % (11.5-14.5); RDW Standard Deviation 47.5 fL (36.4-46.3); Red Blood Count 5.73 M/uL (4.2-5.4)
[2019-01-26 05:57] LABS: INR 2.9 (0.9-1.1); Prothrombin Time 27.7 Seconds (9.0-12.0)
[2019-01-26 06:16] LABS: BUN Creatinine Ratio 21.7 (10-20); Calcium 9.1 mg/dl (8.5-10.1); Creatinine Clr Calc Pharmacy 23.3 ml/min; Est GFR (African American) 53.2; Est GFR (Non-African American) 45.9; Potassium 3.7 mmol/L (3.5-5.1)
[2019-01-26] MEDS: CHOLECALCIFEROL 1,000 UNITS TAB PO SCH (09:09)
[2019-01-26] MEDS: cefTRIAXone SODIUM 1,000 MG in DEXTROSE 5% 50 ML IV SCH (09:09)
[2019-01-26] MEDS: METOPROLOL SUCC 25MG EXT REL TAB PO SCH (09:09)
[2019-01-26] MEDS: AMLODIPINE BESYLATE 5 MG TAB PO SCH (09:09)
--- NOTE | 2019-01-26 12:03 | CT Scan Report ---
CT head/brain wo con CLINICAL HISTORY: 83 years-old Female with Stroke like symtoms. Acute strokelike symptoms TECHNIQUE: Multiple axial CT images of the head were obtained without contrast. A dose lowering tech nique was utilized adhering to the principles of ALARA. CT DOSE: 1958.94 mGycm COMPARISON: Head CT 01/24/2019. FINDINGS: No acute intracranial hemorrhage, midline shift, intracranial mass, hydrocephalus, territorial ischem ia or abnormal extra-axial collection. Age-related involutional changes with ex vacuo ventriculomegal y. Extensive confluent white matter hypodensities redemonstrated suggestive of advanced chronic micro vascular ischemic disease. Senescent calcifications of the lentiform nuclei. Cerebral vascular calcif ications noted. The calvarium is intact. The paranasal sinuses, mastoid air cells, and middle ear cavities are clear . IMPRESSION: Chronic findings as above without acute intracranial abnormality identified. The above report was generated using voice recognition software. It may contain grammatical, syntax o r spelling errors. Electronically signed by: Sae Infante M.D. 01/26/2019 12:02 PM
[2019-01-26] MEDS ORDERED: SODIUM CHLORIDE 0.9% 1000ML 1,000 ML IV ONE (13:02)
--- NOTE | 2019-01-26 13:16 | Hospitalist Progress Note ---
Date of Service January 26, 2019 Assessment & Plan (1) Dizziness: (2) Dehydration: Patient is an 83-year-old female with H/O PAF anticoagulated on warfarin, TBS status post permanent pacemaker placement, HTN, HLD, CKD stage IV baseline creatinine 1.6, venous insufficiency, senile osteoporosis who presents to [facility] ED secondary to dizziness x 1 week. Dizziness Likely due to BPPV, dehydration Uncontrolled hypertension likely contributing CT head negative for acute abnormality or hemorrhage, notable senescent changes and chronic sphenoid sinusitis. Repeat CT Head:Chronic findings as above without acute intracranial abnormality identified. IV fluids Meclizine PRN Pacemaker interrogation requested (3) HTN (hypertension): Uncontrolled HTN Likely secondary to chronic kidney disease Increased amlodipine to 10mg Metoprolol changed to Coreg PO Hydralazine PRN Consider nephrology input if necessary Altered Mental Status ? Hypertensive Encephalopathy CT head imaging as above Worsening mental status change noticed by friend likely since last 2 weeks Normal TSH Consulted Neurology for Input Check [place] screen (4) Supratherapeutic INR: Supratherapeutic INR Hematuria in the setting of Coumadin induced supratherapeutic INR INR: 9.2>>>2.9 Given 1 dose of p.o. vitamin K Coumadin held for now Monitor INR, CBC (5) Microscopic hematuria: In setting of supratherapeutic INR (6) Chronic kidney disease (CKD), stage IV (severe): Baseline cr 1.6-1.7 Received IVF Monitor renal function Avoid nephrotoxic agents as able (7) PAF (paroxysmal atrial fibrillation): S/P Pacemaker Continue metoprolol Resume Coumadin as able (8) Tachy-jacque syndrome: s/p PPM Pacemaker interrogation (9) DVT prophylaxis: Supratherapeutic INR SCDs for now CODE STATUS Full code Disposition: PT OT prior to discharge No family members or POA as per the patient's friend Subjective Patient is seen and examined at bedside Delirious overnight, received Zyprexa this morning Patient remains confused History is limited Repeat CT head showed no acute changes Discussed with patient's friend at bedside Consulted neurology for evaluation Hemoconcentrated on labs Review of Systems Review of Systems: All systems reviewed & are unremarkable except as noted in HPI & below Physical Exam Physical Exam: Physical Exam: Vitals signs as noted above General Appearance:Thin, frail, no apparent distress, Elderly Head: normocephalic, Atraumatic Eyes: normal inspection, EOMI Neck: supple, Trachea midline Respiratory/Chest: Normal breath sounds, CTA Cardiovascular: S1, S2, + murmur Abdomen/GI:Soft, Non tender, Bowel sounds present Extremities/Musculoskelatal:normal inspection, no edema Neurologic/Psych:grossly no focal neurological deficits, Confused, ? incoherent speech Skin: normal color, warm Results & Data Vital Signs (Past 12 Hours) Vital Signs Temp Pulse Pulse Resp BP Pulse Ox 01/26/19 11:28 36.4 C L 65 20 163/63 H 96 01/26/19 07:00 80 18 186/78 H Laboratory Results Short CBC 01/26/19 Range/Units 05:19 WBC 9.80 (4.8-10.8) K/uL Hgb 18.1 H (12.0-16.0) g/dL Hct 52.2 H (37-47) % Plt Count 244 (130-400) K/uL BMP 01/26/19 05:19 Sodium 133 L Potassium 3.7 Chloride 103 Carbon Dioxide 19 L BUN 24 H Creatinine 1.11 Glucose 99 Calcium 9.1
[2019-01-26 14:51] LABS: Lyme Ab IgG w/WB Rflx Negative (Negative); Lyme Ab IgM w/WB Rflx Negative (Negative)
[2019-01-26] MEDS: carvediloL 6.25 MG TAB PO SCH (21:40)
[2019-01-27 06:13] LABS: INR 2.1 (0.9-1.1); Prothrombin Time 20.6 Seconds (9.0-12.0)
[2019-01-27 06:24] LABS: BUN Creatinine Ratio 20.6 (10-20); Calcium 7.9 mg/dl (8.5-10.1); Creatinine Clr Calc Pharmacy 19.1 ml/min; Est GFR (African American) 43.1; Est GFR (Non-African American) 37.2; Potassium 3.7 mmol/L (3.5-5.1)
[2019-01-27 06:25] LABS: Hematocrit (blood only) 43.5 % (37-47); Hemoglobin 14.4 g/dL (12.0-16.0); Mean Corpuscular Hemoglobin 30.1 pg (25-34); Mean Corpuscular Hgb Conc 33.1 g/dL (32-36); Mean Corpuscular Volume 90.8 fL (80-100); Mean Platelet Volume 9.7 fL (7.4-10.4); Platelet Count 184 K/uL (130-400); RDW Coefficient of Variation 14.3 % (11.5-14.5); RDW Standard Deviation 47.1 fL (36.4-46.3); Red Blood Count 4.79 M/uL (4.2-5.4); White Blood Count 6.91 K/uL (4.8-10.8)
[2019-01-27] MEDS: carvediloL 6.25 MG TAB PO SCH ×2 (08:18→20:15)
[2019-01-27] MEDS: AMLODIPINE BESYLATE 5 MG TAB PO SCH (08:18)
[2019-01-27] MEDS: CHOLECALCIFEROL 1,000 UNITS TAB PO SCH (08:19)
[2019-01-27] MEDS: cefTRIAXone SODIUM 1,000 MG in DEXTROSE 5% 50 ML IV SCH (09:52)
[2019-01-27] MEDS ORDERED: SODIUM CHLORIDE 0.9% 1000ML 1,000 ML IV ONE (14:25)
--- NOTE | 2019-01-27 14:29 | Hospitalist Progress Note ---
Date of Service January 27, 2019 Assessment & Plan (1) Dizziness: (2) Dehydration: Patient is an 83-year-old female with H/O PAF anticoagulated on warfarin, TBS status post permanent pacemaker placement, HTN, HLD, CKD stage IV baseline creatinine 1.6, venous insufficiency, senile osteoporosis who presents to [facility] ED secondary to dizziness x 1 week. Dizziness Likely due to BPPV, dehydration Uncontrolled hypertension likely contributing to dizziness Chronic dizziness since many months as per Patient's friends CT head negative for acute abnormality or hemorrhage, notable senescent changes and chronic sphenoid sinusitis. Repeat CT Head:Chronic findings as above without acute intracranial abnormality identified. Gentle IV fluids Meclizine PRN Pacemaker interrogation requested Monitor on Tele (3) HTN (hypertension): Uncontrolled HTN Likely secondary to chronic kidney disease Started on amlodipine Metoprolol changed to Coreg PO Hydralazine PRN BP better Altered Mental Status ? Hypertensive Encephalopathy CT head imaging as above Lyme Screen: Negative Worsening mental status since last January which has progressively worsened since since last 2 weeks as per friends Normal TSH, Normal Ammonia level Received Rocephin for possible UTI--completed 3 day course Obtain Blood Cx Consulted Neurology for Input Consulted Palliative Care to address goals of care Patient friend suggests no aggressive measures Avoid narcotics as able (4) Supratherapeutic INR: Supratherapeutic INR Hematuria in the setting of Coumadin induced supratherapeutic INR INR: 9.2>>>2.9>>2.1 Given 1 dose of p.o. 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 (9) DVT prophylaxis: Resumed Coumadin CODE STATUS Full code for now Unknown if patient has living will Need to readdress CODE STATUS Disposition: PT OT prior to discharge No family members or POA as per the patient's friend Subjective Patient is seen and examined at bedside Very drowsy this morning Limited history BP improved Discussed with patient's friend at bedside Unsure if patient has living Will and No family members in contact for many years Consulted palliative care to address goals of care Await for neurology input also Ammonia levels normal Review of Systems Review of Systems: All systems reviewed & are unremarkable except as noted in HPI & below Physical Exam Physical Exam: Physical Exam: Vitals signs as noted above General Appearance:Thin, frail, no apparent distress, Elderly, drowsy Head: normocephalic, Atraumatic Eyes: normal inspection, EOMI Neck: supple, Trachea midline Respiratory/Chest: Normal breath sounds, CTA Cardiovascular: S1, S2, + murmur Abdomen/GI:Soft, Non tender, Bowel sounds present Extremities/Musculoskelatal:normal inspection, no edema Neurologic/Psych:grossly no focal neurological deficits, Confused Skin: normal color, warm Results & Data Vital Signs (Past 12 Hours) Vital Signs Temp Pulse Resp BP BP Pulse Ox 01/27/19 11:07 36.4 C L 60 18 96/64 L 93 01/27/19 07:56 36.4 C L 71 20 141/80 H 90 01/27/19 03:35 36.5 C 65 18 114/65 113/58 L 93 Laboratory Results Short CBC 01/27/19 Range/Units 05:30 WBC 6.91 (4.8-10.8) K/uL Hgb 14.4 D (12.0-16.0) g/dL Hct 43.5 (37-47) % Plt Count 184 (130-400) K/uL BMP 01/27/19 05:30 Sodium 139 Potassium 3.7 Chloride 108 H Carbon Dioxide 25 BUN 27 H Creatinine 1.32 H Glucose 78 Calcium 7.9 L
--- NOTE | 2019-01-27 14:50 | Neurology Consultation ---
Date of Consultation January 27, 2019 Assessment & Plan (1) AMS (altered mental status): 1. pacemaker interrogation completed 2. rate and blood pressure control -consider patient age 3. holding Coumadin for hyper therapeutic levels 4. PT/OT for discharge needs 5. home safety check 6. presentation with dizziness- sounds like BPPV 7. carotid doppler for evaluation of decreased cerebral perfusion 8. correctable causes b12, folate, thiamine level ordered- consider thiamine supplement Supervising Physician Co-Signing Physician Notes I have seen and discussed above patient with Dr Lewis Adler, neurology I have seen this frail elderly woman today in consultation, examined her, interviewed her some degree, reviewed her imaging studies and history and at this point not clear as to what has caused the encephalopathy that seems to be improving. 2 CAT scans have shown nothing other than involutional changes compatible with age. An EEG shows a moderate degree of generalized slow-wave activity without lateralizing features were potentially epileptic discharges and one has to wonder if some of this was medication related and also in light of her frail status wonder if some of this might reflect an underlying nutritional deficiency Plan is now to simply observe her await the results of the B12, folate and thiamine levels, empirically treat her with multivitamins until they return, and to check the duplex of the carotids to be sure that her hypertension is not to some degree of reflux for bilateral high-grade stenoses and frankly I doubt the latter is a regular here any bruits and presentation with nonlateralizing findings and a global confusion would be most unusual We will check back tomorrow but at the present time we have a confusional state/encephalopathy of uncertain causation With no clear evidence for systemic infection, metabolic disturbance, structural disease of the nervous system Lewis Adler MD History of Present Illness Reason for Consultation: altered MS Requesting Physician: Shalmo Duque MD Attending Physician: Shalom Duque MD History of Present Illness Doyle is an 83 year old female with PMH - PAF anticoagulated on warfarin, TBS status post permanent pacemaker placement, HTN, HLD, CKD IV baseline creatinine 1.6, venous insufficiency, senile osteoporosis who presents to [facility] ED secondary to dizziness x 1 week. According to notes the dizziness comes and goes, described a spinning sensation, no falls, unable to pinpoint anything that makes it worse including positional change, improved with rest and not modified by meclizine. She lives alone at home and is and continues to drive. Her blood pressure was 160/95 and when up to 227/110 but now is on the low side 96/64. Currently she is snoring when walking into room. She is resistant to open her eyes. denies pain, SOB, CP. Allergies Allergy/AdvReac Type Severity Reaction Status Date / Time No Known Allergies Allergy Unverified 01/24/19 18:14 Home Medications Home Medications Medication Instructions Recorded Confirmed Type aspirin 81 mg PO QAM 01/23/18 01/24/19 History cholecalciferol (vitamin D3) 2,000 unit PO QAM 01/23/18 01/24/19 History [Vitamin D3] metoprolol succinate 25 mg PO QAM #30 tab 01/23/18 01/24/19 Rx warfarin [Coumadin] 2.5 mg PO MOWEFR@0800 01/23/18 01/24/19 History meclizine 25 mg PO TID PRN 01/24/19 01/24/19 History warfarin 5 mg PO SUTUTHSA@0800 01/24/19 01/24/19 History Patient History Medical History (Updated 01/27/19 @ 14:48 by Marilee Vitale PA-C) Cardiac pacemaker Chronic kidney disease (CKD), stage IV (severe) HLD (hyperlipidemia) HTN (hypertension) Osteoporosis PAF (paroxysmal atrial fibrillation) pt admitted for elective ppm due to TBS; underwent procedure without any complications. her diltiazem was stopped and she was started on toprol and amiodarone; monitored overnight and discharged home. 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 her diltiazem was stopped and she was started on toprol and amiodarone; monitored overnight and discharged home. 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 Required: No Beliefs That Will Affect Care: None marital status: / Current Living Situation: Other Current Living Situation Comment: In house with friend Other Information That Helps Us Care for You: No Feels Safe at Home: Yes Safety Concerns: Feels Safe At This Time Smoking Status: Never smoker Hx Alcohol Use: No Hx Substance Use: No Physical Exam Physical Exam: Physical Exam: Constitutional: appearance thin frail Ears, Nose, Mouth and Throat: mucous membranes moist, no injection and skin normal, eyes normal Cardiovascular: irregular Respiratory: course breath sounds Musculoskeletal: good distal pulses Skin: bruising on hands Eyes: will not open eye when opening eyes pupils are reactive and equal NEUROLOGIC EXAMINATION: Mental status: minimally interactive Oriented hospital Oriented to person Speech fluent with no evidence of aphasia Cranial Nerves facial symmetry Reflexes: Deep tendon reflexes were symmetrical and graded 2/5. down going toes Sensory: intact to light and cool touch Gait/Stance: Posture lying in bed Strength: will not cooperative with exam but resists with appropriate strength with bending knees and lifting arms. Results & Data Vital Signs (Past 12 Hours) Vital Signs Temp Pulse Resp BP BP Pulse Ox 01/27/19 11:07 36.4 C L 60 18 96/64 L 93 01/27/19 07:56 36.4 C L 71 20 141/80 H 90 01/27/19 03:35 36.5 C 65 18 114/65 113/58 L 93 Laboratory Results Abnormal lab results 01/27/19 01/27/19 01/27/19 Range/Units 05:30 05:30 05:30 RDW Std Deviation 47.1 H (36.4-46.3) fL PT 20.6 H (9.0-12.0) Seconds INR 2.1 H (0.9-1.1) Chloride 108 H (98-107) mmol/L BUN 27 H (7-18) mg/dl Creatinine 1.32 H (0.6-1.2) mg/dl BUN/Creatinine Ratio 20.6 H (10-20) Calcium 7.9 L (8.5-10.1) mg/dl U Random Total Protein (0-11.9) mg/dl 01/27/19 Range/Units Unknown RDW Std Deviation (36.4-46.3) fL PT (9.0-12.0) Seconds INR (0.9-1.1) Chloride (98-107) mmol/L BUN (7-18) mg/dl Creatinine (0.6-1.2) mg/dl BUN/Creatinine Ratio (10-20) Calcium (8.5-10.1) mg/dl U Random Total Protein 20.4 H (0-11.9) mg/dl Diagnostic Findings CT head- Chronic findings as above without acute intracranial abnormality identified. CXR-Cardiomegaly and cardiac pacemaker. There is no radiographic evidence of congestive failure. Emphysema. There is no airspace consolidation or pleural effusion.
[2019-01-27] MEDS: WARFARIN SOD 2.5 MG TAB PO SCH (16:02)
--- NOTE | 2019-01-27 16:40 | Electroencephalogram ---
EEG Procedure Note Date of Service January 27, 2019 Start / End Times Start Time: 0800 End Time: 0830 Referring Physician Lewis Adler MD History Global confusion of uncertain origin Home Medication List Home Medications Medication Instructions Recorded Confirmed Type aspirin 81 mg PO QAM 01/23/18 01/24/19 History cholecalciferol (vitamin D3) 2,000 unit PO QAM 01/23/18 01/24/19 History [Vitamin D3] metoprolol succinate 25 mg PO QAM #30 tab 01/23/18 01/24/19 Rx warfarin [Coumadin] 2.5 mg PO MOWEFR@0800 01/23/18 01/24/19 History meclizine 25 mg PO TID PRN 01/24/19 01/24/19 History warfarin 5 mg PO SUTUTHSA@0800 01/24/19 01/24/19 History Inpatient Medication List Carvedilol (Coreg) 6.25 mg PO BID [facility] Stop: 02/25/19 20:59 Last Admin: 01/27/19 08:18 Dose: 6.25 mg Documented by: [id number] Admin: 01/26/19 21:40 Dose: 6.25 mg Documented by: [id number] Sodium Chloride (Nss 1000ml) 1,000 mls @ 50 mls/hr IV .Q20H ONE Stop: 01/28/19 10:24 Last Admin: 01/27/19 14:49 Dose: 50 mls/hr Documented by: [id number] Olanzapine (Zyprexa) 2.5 mg IM Q4H PRN PRN Reason: Anxiety/Agitation Stop: 02/25/19 04:05 Last Admin: 01/26/19 04:36 Dose: 2.5 mg Documented by: [id number] Vitamin D (Vitamin D3) 2,000 units PO QAM [facility] Stop: 02/24/19 08:59 Last Admin: 01/27/19 08:19 Dose: 2,000 units Documented by: [id number] Admin: 01/26/19 09:09 Dose: 2,000 units Documented by: [id number] Admin: 01/25/19 09:14 Dose: 2,000 units Documented by: [id number] Warfarin Sodium (Coumadin) 2.5 mg PO DAILY@1600 [facility] Stop: 02/26/19 15:59 Last Admin: 01/27/19 16:02 Dose: 2.5 mg Documented by: [id number] Discontinued Medications A[facility] [place] Stop: 02/24/19 08:59 Last Admin: 01/25/19 09:14 Dose: 5 mg Documented by: [id number] Amlodipine Besylate (Norvasc) 5 mg PO NOW ONE Stop: 01/25/19 11:25 Last Admin: 01/25/19 12:45 Dose: 5 mg Documented by: [id number] Amlodipine Besylate (Norvasc) [facility] [place] Stop: 02/25/19 08:59 Last Admin: 01/27/19 08:18 Dose: 10 mg Documented by: [id number] Admin: 01/26/19 09:09 Dose: 10 mg Documented by: [id number] Hydralazine HCl (Hydralazine Hcl) 10 mg IV NOW STA Stop: 01/24/19 20:15 Last Admin: 01/24/19 20:33 Dose: 10 mg Documented by: [id number] Hydralazine HCl (Apresoline) 5 mg PO Q6H PRN PRN Reason: Hypertension Stop: 02/24/19 15:29 Last Admin: 01/25/19 18:41 Dose: 5 mg Documented by: [id number] Hydroxyzine HCl (Vistaril) 10 mg PO Q6H PRN PRN Reason: anxiety Stop: 02/24/19 17:43 Last Admin: 01/25/19 18:41 Dose: 10 mg Documented by: [id number] Sodium Chloride (Nss) 500 mls @ 999 mls/hr IV .Q31M DARRYN Stop: 01/24/19 17:45 Last Infusion: 01/24/19 18:40 Dose: 0 mls/hr Documented by: [id number] Infusion: 01/24/19 18:10 Dose: 999 mls/hr Documented by: [id number] Infusion: 01/24/19 18:06 Dose: 0 mls/hr Documented by: [id number] Admin: 01/24/19 17:59 Dose: 999 mls/hr Documented by: [id number] Sodium Chloride (Nss 1000ml) 500 mls @ 999 mls/hr IV .Q31M ONE Stop: 01/24/19 19:51 Last Infusion: 01/24/19 20:13 Dose: 0 mls/hr Documented by: [id number] Admin: 01/24/19 19:35 Dose: 999 mls/hr Documented by: [id number] Sodium Chloride (1/2 Nss) 1,000 mls @ 50 mls/hr IV .Q20H DARRYN Stop: 01/25/19 13:00 Last Infusion: 01/26/19 06:19 Dose: 0 mls/hr Documented by: [id number] Admin: 01/25/19 09:16 Dose: 50 mls/hr Documented by: [id number] Infusion: 01/25/19 09:14 Dose: 50 mls/hr Documented by: [id number] Admin: 01/24/19 23:04 Dose: 100 mls/hr Documented by: [id number] Ceftriaxone Sodium 1,000 mg/ (Dextrose) 60 mls @ 100 mls/hr IV Q24H DARRYN; Protocol Stop: 01/30/19 09:59 Last Infusion: 01/27/19 10:30 Dose: 0 mls/hr Documented by: [id number] Admin: 01/27/19 09:52 Dose: 100 mls/hr Documented by: [id number] Infusion: 01/26/19 10:31 Dose: 0 mls/hr Documented by: [id number] Admin: 01/26/19 09:09 Dose: 100 mls/hr Documented by: [id number] Infusion: 01/25/19 11:20 Dose: 0 mls/hr Documented by: [id number] Admin: 01/25/19 10:27 Dose: 100 mls/hr Documented by: [id number] Sodium Chloride (Nss 1000ml) 1,000 mls @ 80 mls/hr IV .[id number] ONE Stop: 01/27/19 01:31 Last Infusion: 01/27/19 01:34 Dose: 0 mls/hr Documented by: [id number] Admin: 01/26/19 13:23 Dose: 80 mls/hr Documented by: [id number] Metoprolol Succinate (Toprol Xl) 25 [facility] Stop: 01/24/19 19:07 Last Admin: 01/24/19 19:35 Dose: 25 mg Documented by: [id number] Metoprolol Succinate (Toprol Xl) [facility] [place] Stop: 02/24/19 08:59 Last Admin: 01/26/19 09:09 Dose: 25 mg Documented by: [id number] Admin: 01/25/19 09:14 Dose: 25 mg Documented by: [id number] Metoprolol Tartrate (Lopressor) Confirm Administered Dose 50 mg .ROUTE .STK-MED ONE Stop: 01/24/19 19:15 Last Admin: 01/24/19 19:34 Dose: Not Given Documented by: [id number] Phytonadione (Mephyton) 5 mg PO NOW STA Stop: 01/25/19 09:59 Last Admin: 01/25/19 10:28 Dose: 5 mg Documented by: [id number] Description This is a 21 electrode EEG with a single channel dedicated to limited EKG. The electrodes were placed in accordance with the International 10-20 system. This EEG was obtained as a bedside recording and is good technical quality was scattered muscle movement artifacts but none sufficient to prevent interpretation Video analysis of patient movement and behavior was obtained Photic stimulation was performed. The patient appears to be in a state of wakefulness with some intermittent drowsiness Under these conditions there is no evidence for normal background rhythm in the alpha range but rather a moderate amplitude symmetrical posterior head region maximal rhythm in the mid theta range at 6 to 7 Hz with maximum frequency and of up to 40 V maximum amplitude. Polymorphic moderate amplitude mixed theta delta activity is seen predominantly in the central regions and in a symmetrical fashion with some spillover into the frontal regions where there may be some superimposed eye movement artifacts. Beta activity is very difficult to see in the frontal regions Photic stimulation provokes a minimal driving response without any photomyogenic or photoparoxysmal components None time during the waking tracing there is no evidence for potentially epileptogenic activity Interpretation This is a moderately diffusely abnormal EEG revealing evidence for nonspecific nonlateralizing encephalopathy without potentially epileptogenic features Clinical Correlation This EEG reveals evidence for a nonspecific generalized moderate encephalopathy of indeterminate causation. This may be seen in anyone with a number of toxic or metabolic disturbances or even in the setting of diffuse multifocal subcortical or cortical structural disease there is no evidence for nonconvulsive status epilepticus or other patterns suggesting potential seizure activity Lewis Adler MD
--- NOTE | 2019-01-27 17:34 | Palliative Care Consultation ---
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 fib-on metoprolol and Coumadin. Patient had been seen as an outpatient for increased dizziness and had been started on meclizine. Patient presented to the emergency room on 01/24 with a complaint of increased dizziness. Patient was known to be hypertensive with a blood pressure of 160/95 which negro up to 214/110. Patient was admitted for further management of her hypertension. Her INR was also noted to be supratherapeutic at 6.5. Of note her creatinine was also elevated at 1.64 with a prior baseline of 1.3, BUN was also elevated at 31, she did not have an increase in her white count or evidence of acute infection. Patient had a stat head CT which was negative. On 01/26 patient became acutely agitated with delirium-repeat head CT did not show any acute changes. Patient's line titer was checked-it was negative. Per neurology, EEG showed generalized slowing, no lateralization. B12 level was greater than 2000.. Patient seen and examined in room 230 this afternoon, no friends or family at bedside. Patient had reportedly been obtunded earlier this a.m.-on exam she was arousable, was not oriented to place, but did name the year as 2018, when asked what month it was she said 12. Patient was able to give some disjointed history-still remains somewhat confused. Patient was able to tell me that she lives with her friend and another lady-was not able to give any names. According to the chart patient lives with her significant other, Oscar Koenigduane. When I mentioned his name she said yes that is who she lives with. Oscar's daughters, Shantel and Bella are involved with the care of both Oscar and Doyle. Oscar also has a nephew, who is a retired pharmacist and lives nearby. Patient gave permission for me to speak with either of Oscar's daughters, spoke with Shantel-phone #[phone]. She reported that she and her sister as well as Oscar's nephew check on them frequently. She did have concerns that they were not taking her medications properly and plans on making pillboxes for both the patient and her significant other when she returns home. Patient was able to tell me she did want to be resuscitated at this time. In light of her confusion and no other family to make medical decisions , she will remain a full code at this time. She did state if she were unable to make decisions for herself she would want Don to be her HCS. Patient's mental status appears to be slowly improving-we will continue to monitor. Altered mental status may be due to not taking her medications correctly. Will continue to follow and address CODE STATUS as well as goals and care when patient's mental status improves. Patient's significant other, Oscar Diggs-stated that he did not think she would want aggressive measures. (2) AMS (altered mental status): Appears to be improving with hydration and blood pressure control (3) HTN (hypertension): Patient may have not been compliant with her medications at home due to mild dementia. Blood pressure within acceptable limits on current meds (4) Chronic kidney disease (CKD), stage IV (severe): Slight increase in patient's baseline BUN and creatinine-mental status clearing with improvement in her renal function (5) Dizziness: Was taking as needed meclizine at home-unknown how often patient was taking it-may have contributed to her altered mental status (6) Tachy-jacque syndrome: Status post pacemaker placement on 01/23/2018 History of Present Illness Reason for Consultation: Address CODE STATUS and goals of care Requesting Physician: Dr. 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 fib-on metoprolol and Coumadin. Patient had been seen as an outpatient for increased dizziness and had been started on meclizine. Patient presented to the emergency room on 01/24 with a complaint of increased dizziness. Patient was known to be hypertensive with a blood pressure of 160/95 which negro up to 214/110. Patient was admitted for further management of her hypertension. Her INR was also noted to be supratherapeutic at 6.5. Of note her creatinine was also elevated at 1.64 with a prior baseline of 1.3, BUN was also elevated at 31, she did not have an increase in her white count or evid ence of acute infection. Patient had a stat head CT which was negative. On 01/26 patient became acutely agitated with delirium-repeat head CT did not show any acute changes. Patient's line titer was checked-it was negative. Per neurology, EEG showed generalized slowing, no lateralization. B12 level was greater than 2000.. Patient seen and examined in room 230 this afternoon, no friends or family at bedside. Patient had reportedly been obtunded earlier this a.m.-on exam she was arousable, was not oriented to place, but did name the year as 2018, when asked what month it was she said 12. Patient was able to give some disjointed history-still remains somewhat confused. Patient was able to tell me that she lives with her friend and another lady-was not able to give any names. Claus schulte to the chart patient lives with her significant other, Oscar Diggs. When I mentioned his name she said yes that is who she lives with. Oscar's daughters, Shantel and Bella are involved with the care of both Oscar and Doyle. Oscar also has a nephew, who is a retired pharmacist and lives nearby. Spoke with Oscar's daughter Shantel-phone #[phone]. She reported that she and her sister as well as Oscar's nephew check on them frequently. She did have concerns that they were not taking her medications properly and plans on making pillboxes for both the patient and her significant other when she returns home. Patient was able to tell me she did want to be resuscitated at this time. In light of her confusion and no other family to make medical decisions , she will remain a full code at this time. She did state if she were unable to make decisions for herself she would want Oscar to be her [facility]. Patient's mental status appears to be slowly improving-we will continue to monitor. Altered mental status may be due to not taking her medications correctly. Allergies Allergy/AdvReac Type Severity Reaction Status Date / Time No Known Allergies Allergy Unverified 01/24/19 18:14 Home Medications Home Medications Medication Instructions Recorded Confirmed Type aspirin 81 mg PO QAM 01/23/18 01/24/19 History cholecalciferol (vitamin D3) 2,000 unit PO QAM 01/23/18 01/24/19 History [Vitamin D3] metoprolol succinate 25 mg PO QAM #30 tab 01/23/18 01/24/19 Rx warfarin [Coumadin] 2.5 mg PO MOWEFR@0800 01/23/18 01/24/19 History meclizine 25 mg PO TID PRN 01/24/19 01/24/19 History warfarin 5 mg PO SUTUTHSA@0800 01/24/19 01/24/19 History Patient History Medical History Cardiac pacemaker Chronic kidney disease (CKD), stage IV (severe) HLD (hyperlipidemia) HTN (hypertension) Osteoporosis PAF (paroxysmal atrial fibrillation) pt admitted for elective ppm due to TBS; underwent procedure without any complications. her diltiazem was stopped and she was started on toprol and amiodarone; monitored overnight and discharged home. 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 her diltiazem was stopped and she was started on toprol and amiodarone; monitored overnight and discharged home. Surgical History History of total right hip arthroplasty Family History Other Unknown family medical history Social History Preferred Language: Cook Islander Communication Ability: Effective Scrapper Required: No Beliefs That Will Affect Care: None marital status: / Current Living Situation: Other Current Living Situation Comment: In house with friend Other Information That Helps Us Care for You: No Feels Safe at Home: Yes Safety Concerns: Feels Safe At This Time Smoking Status: Never smoker Hx Alcohol Use: No Hx Substance Use: No Review of Systems Review of Systems: Unobtainable due to cognitive status Physical Exam Physical Exam: PE: Patient arousable, no acute distress HEENT: EOMI, hearing within normal limits, dry mucous membranes Respiratory: Unlabored, clear breath sounds CV: Regular rate, no edema Abdomen: Soft, nontender, not distended Extremities: Full range of motion Neuro: Confused, no focal deficits Results & Data Vital Signs (Past 12 Hours) Vital Signs Temp Pulse Pulse Pulse Resp BP BP 01/27/19 16:00 62 01/27/19 15:16 97.2 F L 70 18 148/77 H 01/27/19 11:07 97.5 F L 60 18 96/64 L 01/27/19 07:56 97.5 F L 71 20 141/80 H Pulse Ox 01/27/19 16:00 01/27/19 15:16 92 01/27/19 11:07 93 01/27/19 07:56 90 PG Care Time/CCT Total # of Minutes Spent Total Time Spent with Patient: Total time spent is greater than 50% in coordination of care (as documented) at patient's floor/unit and/or counseling patient:
--- NOTE | 2019-01-27 21:58 | Ultrasound Report ---
ULTRASOUND OF THE CAROTID ARTERIES CLINICAL HISTORY: Change in mental status. Evaluate for carotid stenosis COMPARISON STUDY: None. TECHNIQUE: Real-time, grayscale, and color Doppler sonography of the carotid arteries was performed. Imaging reviewed in the transverse and longitudinal planes. NASCET criteria was utilized for stenosis calcification. FINDINGS: There is moderate atherosclerotic plaque present . The peak systolic velocity within the right internal carotid artery is 61 cm/sec. The systolic velocity ratio of right internal to common carotid artery is 1.1. The peak systolic velocity within the left internal carotid artery is 44 cm/sec. The systolic velocity ratio left internal to common carotid artery is 0.8. Antegrade flow is seen in the vertebral arteries. The external carotid arteries are patent. Blood pressure in the right arm measured 129 mm/Hg. Blood pressure in the left arm measured 118 mm/H g. IMPRESSION: No evidence of hemodynamically significant carotid stenosis. Electronically signed by: Silvestre Moore M.D. 01/27/2019 9:56 PM
[2019-01-28 06:43] LABS: INR 2.1 (0.9-1.1); Prothrombin Time 20.8 Seconds (9.0-12.0)
[2019-01-28 06:59] LABS: BUN Creatinine Ratio 22.2 (10-20); Calcium 8.7 mg/dl (8.5-10.1); Creatinine Clr Calc Pharmacy 18.6 ml/min; Est GFR (African American) 42.4; Est GFR (Non-African American) 36.5; Potassium 3.6 mmol/L (3.5-5.1)
[2019-01-28] MEDS: carvediloL 6.25 MG TAB PO SCH ×2 (07:44→21:47)
[2019-01-28] MEDS: CHOLECALCIFEROL 1,000 UNITS TAB PO SCH (07:44)
[2019-01-28] MEDS: AMLODIPINE BESYLATE 5 MG TAB PO SCH (07:44)
[2019-01-28] MEDS ORDERED: SODIUM CHLORIDE 0.9% 1000ML 1,000 ML IV SCH (11:30)
--- NOTE | 2019-01-28 14:51 | Palliative Care Progress Note ---
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 fib-on metoprolol and Coumadin. Patient had been seen as an outpatient for increased dizziness and had been started on meclizine. Patient presented to the emergency room on 01/24 with a complaint of increased dizziness. Patient was known to be hypertensive with a blood pressure of 160/95 which negro up to 214/110. Patient was admitted for further management of her hypertension. Her INR was also noted to be supratherapeutic at 6.5. Of note her creatinine was also elevated at 1.64 with a prior baseline of 1.3, BUN was also elevated at 31, she did not have an increase in her white count or evidence of acute infection. Patient had a stat head CT which was negative. On 01/26 patient became acutely agitated with delirium-repeat head CT did not show any acute changes. Patient's Lyme titer was negative. Per neurology, EEG showed generalized slowing, no lateralization. B12 level was greater than 2000.. Patient seen and examined in room 230 this afternoon, patient's significant other and his daughter are at bedside. Patient's altered mental status has greatly improved-is reportedly back at her prior baseline. Patient lives with her significant other, Oscar Diggs, his 2 daughters, Shantel and Bella as well as his nephew are involved in their care. Discussed continued family involvement-suggested pillboxes to help both patient and her significant other manage their medications at home. With the patient's return to her prior baseline, suspect unintentional medication errors. Discussed advance care planning with patient and Bella-patient did reiterate that she would want her significant other, Oscar, to make medical decisions. Patient does have advanced directives as per the patient as well as Bella on exam this a.m. Patient plans to locate these and suggested she discuss her wishes with Oscar as well as his 2 daughters. Patient's mental status is improving and is back to her prior baseline. Collaborated with case management as well as attending physician regarding recommendations for inpatient rehab therapy prior to returning home. (2) AMS (altered mental status): Improving with hydration and blood pressure control. Suspect unintentional medication mismanagement (3) HTN (hypertension): Patient may have not been compliant with her medications at home due to mild dementia. Blood pressure within acceptable limits on current meds (4) Chronic kidney disease (CKD), stage IV (severe): Slight increase in patient's baseline BUN and creatinine-mental status clearing with improvement in her renal function (5) Dizziness: Was taking as needed meclizine at home-unknown how often patient was taking it-may have contributed to her altered mental status (6) Tachy-jacque syndrome: Status post pacemaker placement on 01/23/2018 Subjective Patient seen in her room, patient's significant other, Oscar Diggs and his daughter Bella at bedside. Patient is awake and alert, sitting up in a chair at bedside. Patient does not recall my visit with her yesterday. Patient is much less confused today. Bella reports that patient is back to her baseline mental status. Patient continues to have generalized weakness-would benefit from inpatient rehab if authorized by insurance. Review of Systems Review of Systems: patient denies fever, chills, chest pain, shortness of breath, or abdominal pain Physical Exam Physical Exam: PE: Patient awake and alert, no acute distress HEENT: EOMI, hearing within normal limits Respirations: Unlabored CV: Regular rate abdomen: Not distended Musculoskeletal: Generalized weakness Neuro: Alert and oriented Results & Data Vital Signs (Past 12 Hours) Vital Signs Temp Pulse Resp BP Pulse Ox 01/28/19 07:40 99.0 F 66 18 137/74 93 01/28/19 03:58 97.9 F 67 18 98/62 L 93 PG Care Time/CCT Total # of Minutes Spent Total Time Spent with Patient: Total time spent is greater than 50% in coordination of care (as documented) at patient's floor/unit and/or counseling patient: Time Spent Attending Time spent 45 minutes with greater than 50% of the time spent at bedside evaluating patient's current mental status as well as discussing treatment op tions and goals of care.
--- NOTE | 2019-01-28 15:22 | Hospitalist Progress Note ---
Date of Service January 28, 2019 Assessment & Plan (1) Dizziness: (2) Dehydration: Patient is an 83-year-old female with H/O PAF anticoagulated on warfarin, TBS status post permanent pacemaker placement, HTN, HLD, CKD stage IV baseline creatinine 1.6, venous insufficiency, senile osteoporosis who presents to [facility] ED secondary to dizziness x 1 week. Dizziness Likely due to BPPV, dehydration Uncontrolled hypertension likely contributing to dizziness Chronic dizziness since many months as per Patient's friends CT head negative for acute abnormality or hemorrhage, notable senescent changes and chronic sphenoid sinusitis. Repeat CT Head:Chronic findings as above without acute intracranial abnormality identified. Continue gentle IV fluids Meclizine PRN Pacemaker interrogation requested Monitor on Tele Dizziness resolved (3) HTN (hypertension): Uncontrolled HTN Likely secondary to chronic kidney disease Blood pressure much improved Continue amlodipine 5 mg daily Metoprolol changed to Coreg 6.25 mg twice daily Altered Mental Status--unclear etiology ? Hypertensive Encephalopathy CT head imaging as above Lyme Screen: Negative Worsening mental status since last January which has progressively worsened since since last 2 weeks as per friends Normal TSH, Normal Ammonia level Normal folate, B12 level Vitamin B-1 levels pending EEG: moderately diffusely abnormal EEG revealing evidence for nonspecific nonlateralizing encephalopathy without potentially epileptogenic features Received Rocephin for possible UTI--completed 3 day course Blood Cx:pending Appreciate Neurology and Palliative Care Input Mental status much improved May need rehab placement for generalized weakness (4) Supratherapeutic INR: Supratherapeutic INR Hematuria in the setting of Coumadin induced supratherapeutic INR INR: 9.2>>>2.9>>2.1 Given 1 dose of p.o. vitamin K Coumadin held initially Coumadin resumed Monitor INR, CBC (5) Microscopic hematuria: In setting of supratherapeutic INR Resolved Hb stable (6) Chronic kidney disease (CKD), stage IV (severe): Baseline cr 1.6-1.7 Monitor renal function Avoid nephrotoxic agents as able (7) PAF (paroxysmal atrial fibrillation): S/P Pacemaker Metoprolol discontinued Continue Coreg On Coumadin (8) Tachy-jacque syndrome: s/p PPM Pacemaker interrogation (9) DVT prophylaxis: Coumadin INR therapeutic CODE STATUS Full code for now Unknown if patient has living will Need to readdress CODE STATUS Disposition: PT OT May need rehab placement Subjective Patient is seen and examined at bedside Doing much better today Sitting in chair comfortably Mental status seems to be back to baseline Confusion resolved. Patient was unsure of the events prior to admission Discussed with patient's friend and palliative care today Denies any chest pain, shortness of breath, dizziness, nausea, abdominal pain Review of Systems Review of Systems: All systems reviewed & are unremarkable except as noted in HPI & below Physical Exam Physical Exam: Physical Exam: Vitals signs as noted above General Appearance:Thin, frail, no apparent distress, Elderly Head: normocephalic, Atraumatic Eyes: normal inspection, EOMI Neck: supple, Trachea midline Respiratory/Chest: Normal breath sounds, CTA Cardiovascular: S1, S2, + murmur Abdomen/GI:Soft, Non tender, Bowel sounds present Extremities/Musculoskelatal:normal inspection, no edema Neurologic/Psych:AAOX3, grossly no focal neurological deficits Skin: normal color, warm Results & Data Vital Signs (Past 12 Hours) Vital Signs Temp Pulse Resp BP Pulse Ox 01/28/19 07:40 37.2 C 66 18 137/74 93 01/28/19 03:58 36.6 C 67 18 98/62 L 93 Laboratory Results [facility] 01/28/19 05:44 Sodium 139 Potassium 3.6 Chloride 109 H Carbon Dioxide 23 BUN 30 H Creatinine 1.34 H Glucose 80 Calcium 8.7
--- NOTE | 2019-01-28 15:38 | Neurology Progress Note ---
Date of Service January 28, 2019 Assessment & Plan (1) AMS (altered mental status): 1. pacemaker interrogation completed 2. rate and blood pressure control -consider patient age 3. holding Coumadin for hyper therapeutic levels 4. PT/OT for discharge needs 5. home safety check 6. presentation with dizziness- sounds like BPPV 7. carotid doppler for evaluation of decreased cerebral perfusion 8. correctable causes b12, folate- WNL , thiamine level pendings 9. this was likely an over use of meclizine for BPPV and would limit the use in this age group will see her in follow up as needed. will sign off for now will be available as needed discharge when medically stable Supervising Physician Co-Signing Physician Notes I have seen and discussed above patient with Dr Lewis Adler, neurology He is significantly better today and is probably close to her baseline. Her significant other is in the room along with his daughter and both of them agree that she is nearly where she has been over the past years. She is currently jovial a little disoriented in terms of the year making a mistake calling in 2014 2018 but then recognizing her air, knows the name of the president also had a value judgement concerning him that she was quite willing to share, do the name of the hospital and recognize that she had been confused and disoriented but also has somewhat poor recall of the events that led up to this admission other than the fact that she was dizzy and was given some medications which I assume was meclizine. Most of her examination is nonfocal and compared to yesterday she is completely "different woman" I am suspicious that this was an anticholinergic related confusional state related to the meclizine as we really have no other explanation and EEG has not shown evidence for seizure activity, imaging studies that showed no new structural disease and basic laboratory studies revealed no evidence for toxic or metabolic abnormalities At this point I think probably observed overnight until she is a little clearer and then discharged tomorrow if she is back to her baseline with follow-up with her primary care physician and caution in the future regarding anticholinergic- containing medications or even antihistamines I do not feel that neurology needs to see her unless her primary care group feel this is necessary after assessing her case post discharge Lewis Adler MD Rowan Kwon is an 83 year old female with PMH - PAF anticoagulated on warfarin, TBS status post permanent pacemaker placement, HTN, HLD, CKD IV baseline creatinine 1.6, venous insufficiency, senile osteoporosis who presents to [facility] ED secondary to dizziness x 1 week. According to notes the dizziness comes and goes, described a spinning sensation, no falls, unable to pinpoint anything that makes it worse including positional change, improved with rest and not modified by meclizine. She lives alone at home and is and continues to drive. Her blood pressure was 160/95 and when up to 227/110 but now is on the low side 96/64. She is awake and alert talking to her stove refinisher and a friend. She was dizzy on arrival and she is not sure if she used too many meclizine. denies pain, SOB, CP. Physical Exam Physical Exam: Gen: alert NAD lungs CTA CV RRR knows president Edy (everyone hates him), thinks its 2015 but realizes she is wrong, [facility] hand president of the [place] biceps triceps bilaterally 5/5, hip flex 5/5 sensation intact to cool touch. Results & Data Vital Signs (Past 12 Hours) Vital Signs Temp Pulse Resp BP Pulse Ox 01/28/19 07:40 37.2 C 66 18 137/74 93 01/28/19 03:58 36.6 C 67 18 98/62 L 93 Laboratory Results Abnormal lab results 01/27/19 01/28/19 01/28/19 Range/Units 16:35 05:44 05:44 PT 20.8 H (9.0-12.0) Seconds INR 2.1 H (0.9-1.1) Chloride 109 H (98-107) mmol/L BUN 30 H (7-18) mg/dl Creatinine 1.34 H (0.6-1.2) mg/dl BUN/Creatinine Ratio 22.2 H (10-20) Vitamin B12 > 2000 H (211-911) pg/ml Diagnostic Findings no new imaging
[2019-01-28] MEDS: WARFARIN SOD 2.5 MG TAB PO SCH ×3 (16:43→17:00)
[2019-01-29 06:02] LABS: Hematocrit (blood only) 41.6 % (37-47); Hemoglobin 13.9 g/dL (12.0-16.0); Mean Corpuscular Hemoglobin 30.4 pg (25-34); Mean Corpuscular Hgb Conc 33.4 g/dL (32-36); Mean Platelet Volume 9.9 fL (7.4-10.4); Platelet Count 182 K/uL (130-400); RDW Coefficient of Variation 14.4 % (11.5-14.5); Red Blood Count 4.57 M/uL (4.2-5.4); White Blood Count 6.29 K/uL (4.8-10.8)
[2019-01-29 06:12] LABS: INR 2.3 (0.9-1.1); Prothrombin Time 22.2 Seconds (9.0-12.0)
[2019-01-29 06:34] LABS: BUN Creatinine Ratio 21.8 (10-20); Calcium 8.1 mg/dl (8.5-10.1); Creatinine Clr Calc Pharmacy 19.5 ml/min; Est GFR (African American) 44.8; Est GFR (Non-African American) 38.6; Potassium 3.8 mmol/L (3.5-5.1)
[2019-01-29] MEDS: carvediloL 6.25 MG TAB PO SCH (08:09)
[2019-01-29] MEDS: CHOLECALCIFEROL 1,000 UNITS TAB PO SCH (08:10)
[2019-01-29] MEDS: AMLODIPINE BESYLATE 5 MG TAB PO SCH (08:10)
--- NOTE | 2019-01-29 12:03 | Hospitalist Progress Note ---
Date of Service January 29, 2019 Assessment & Plan (1) Dizziness: (2) Dehydration: Patient is an 83-year-old female with H/O PAF anticoagulated on warfarin, TBS status post permanent pacemaker placement, HTN, HLD, CKD stage IV baseline creatinine 1.6, venous insufficiency, senile osteoporosis who presents to [facility] ED secondary to dizziness x 1 week. Dizziness--resolved Likely due to BPPV, dehydration, uncontrolled hypertension Uncontrolled hypertension likely contributing to dizziness Chronic dizziness since many months as per Patient's friends CT head negative for acute abnormality or hemorrhage, notable senescent changes and chronic sphenoid sinusitis. Repeat CT Head:Chronic findings as above without acute intracranial abnormality identified. Received IV fluids Was on meclizine PRN--- avoid use is likely contributing to confusion Pacemaker interrogation completed Monitor on Tele--no issues (3) HTN (hypertension): Uncontrolled HTN Likely secondary to chronic kidney disease Blood pressure much improved Continue amlodipine 5 mg daily Metoprolol changed to Coreg 6.25 mg twice daily Blood pressure stable Altered Mental Status--unclear etiology ? Hypertensive Encephalopathy CT head imaging as above Lyme Screen: Negative Worsening mental status since last January which has progressively worsened since since last 2 weeks as per friends Normal TSH, Normal Ammonia level Normal folate, B12 level Vitamin B-1 levels pending EEG: moderately diffusely abnormal EEG revealing evidence for nonspecific nonlateralizing encephalopathy without potentially epileptogenic features Received Rocephin for possible UTI--completed 3 day course Blood Cx: No growth to date Appreciate Neurology and Palliative Care Input Mental status much improved--intermittent confusion, likely at baseline Needs rehab placement (4) Supratherapeutic INR: Supratherapeutic INR Hematuria in the setting of Coumadin induced supratherapeutic INR INR: 9.2>>>2.9>>2.1>> 2.3 Given 1 dose of p.o. 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 (9) DVT prophylaxis: Coumadin INR therapeutic CODE STATUS Full code for now Unknown if patient has living will Need to readdress CODE STATUS Disposition: Plan to discharge to rehab facility today Subjective Patient is seen and examined at bedside Dizziness completely resolved Denies any headache, change in vision, dysuria Intermittent confusion as per RN--- likely her baseline Currently oriented x3 Also denies any chest pain, shortness of breath, dizziness, nausea, abdominal pain Offers no other complaints Plan to be discharged to rehab facility today Review of Systems Review of Systems: All systems reviewed & are unremarkable except as noted in HPI & below Physical Exam Physical Exam: Physical Exam: Vitals signs as noted above General Appearance:Thin, frail, no apparent distress, Elderly Head: normocephalic, Atraumatic Eyes: normal inspection, EOMI Neck: supple, Trachea midline Respiratory/Chest: Normal breath sounds, CTA Cardiovascular: S1, S2, + murmur Abdomen/GI:Soft, Non tender, Bowel sounds present Extremities/Musculoskelatal:normal inspection, no edema Neurologic/Psych:AAOX3, grossly no focal neurological deficits Skin: normal color, warm Results & Data Vital Signs (Past 12 Hours) Vital Signs Temp Pulse Pulse Resp BP BP Pulse Ox 01/29/19 07:25 36.5 C 60 16 131/71 95 01/29/19 03:35 37.0 C 64 17 161/79 H 96 Laboratory Results Short CBC 01/29/19 Range/Units 05:50 WBC 6.29 (4.8-10.8) K/uL Hgb 13.9 (12.0-16.0) g/dL Hct 41.6 (37-47) % Plt Count 182 (130-400) K/uL BMP 01/29/19 05:50 Sodium 141 Potassium 3.8 Chloride 111 H Carbon Dioxide 25 BUN 28 H Creatinine 1.28 H Glucose 84 Calcium 8.1 L
--- NOTE | 2019-01-29 12:13 | Discharge Summary ---
Date of Service January 29, 2019 Admission HPI Per Admitting Provider This is an 83-year-old female who is significant past medical history of PAF anticoagulated on warfarin, TBS status post permanent pacemaker placement, HTN, HLD, CKD stage IV baseline creatinine 1.6, venous insufficiency, senile osteoporosis who presents to [facility] ED secondary to dizziness x 1 week. Dizziness comes and goes, described a spinning sensation, no falls, unable to pinpoint anything that makes it worse including positional change, improved with rest and not modified by meclizine. She denies any recent illness. She lives alone at home and is . She continues to drive. Symptoms are very transient lasting minutes to seconds and resolve with staying still. She does have associated nausea with symptoms. Denies any recent upper respiratory symptoms including sinus congestion, rhinorrhea, ear pain, cough. She denies any change in vision or hearing with symptoms. Denies any difficulty walking. Denies fever, chills, sweats, lightheadedness, presyncope, chest pain, shortness of breath, palpitations, hemoptysis, emesis, abdominal pain. She denies any change in bowel or urinary habits including dysuria, increased urgency and frequency with urination, hematuria, melena. Denies any epistaxis. Has been taking all medications as prescribed including warfarin. She does not monitor her blood pressure at home. Appetite has overall been, "so-so." She is working with dietitian as outpatient to try to gain weight and elicit she is gained a few pounds. Admits to not being a good, "water drinker." In ED upon initial evaluation blood pressure was 160/95 and trended upward to 227/110. Otherwise she remained hemodynamically stable. H&H elevated at 18.2 and 54.5, WBC normal at 6.63, platelet 236, INR elevated 6.5, BUN 31, creatinine 1.64, TSH WNL, troponin WNL. Urinalysis negative for infection, +2 protein, +3 blood, hyaline casts, > 30 rbc, 5-[address] head negative for acute abnormality or hemorrhage, notable senescent changes and chronic sphenoid sinusitis. CXR: emphysema but no acute cardiopulmonary abnormality. Previous [facility] records reviewed. Lives alone, , NS/ND Previous surgery: R JEAN-PAUL Both parents : Unknown cause of or H Admission Exam Per Admitting Provider Constitutional: Petite, elderly, female, vitals as above, NAD, sitting up in bed, pleasant, conversing easily Head: Normocephalic, Atraumatic Eyes: PERRL, conjunctivae normal, anicteric sclerae ENMT: external ear and nose normal, oropharynx normal with dry mucous membranes Neck: trachea midline, no thyromegaly normal visual inspection Respiratory: normal respiratory effort, lungs clear to auscultation, distant breath sounds, diminished at bases, no wheeze, rales, rhonchi. Normal insp/exp effort, no accessory muscle use Cardiovascular: RRR, 1/6 NIYAH noted RUSB, no edema Vessels: no JVD or carotid bruit Chest: normal inspection of chest Abdomen: normal bowel sounds, soft, nontender, no hepatosplenomegaly Musculoskeletal: no cyanosis or clubbing, extremities motor strength 5/5 Skin: no rashes, warm and dry normal turgor Neurologic: PERRL, EOMI, accommodation nl, no face palsy, no dysarthria CN's II-XI intact bilaterally and moves all extremities, dizziness reproducible with head position changes specifically head movement to left, and going from lying to sitting position Psychiatric: A+Ox3, euthymic affect Lymphatic: no cervical or axillary lymphadenopathy : deferred Principal Diagnosis Hypertensive urgency Dizziness Altered mental status Supratherapeutic INR Discharge Data Allergies Allergy/AdvReac Type Severity Reaction Status Date / Time No Known Allergies Allergy Unverified 01/24/19 18:14 Consultations 01/24/19 19:39 ED Decision to Admit Stat 01/24/19 22:05 Consult Case Management - Discharge Planning Routine 01/26/19 11:13 Consult Neurology Routine 01/27/19 10:58 Consult Palliative Care Routine Procedures Performed CT Head: Senescent changes as above with no hemorrhage, mass effect, or evidence of acute territorial ischemia by CT criteria. Carotid Doppler: No evidence of hemodynamically significant carotid stenosis. CXR: 1. Cardiomegaly and cardiac pacemaker. There is no radiographic evidence of congestive failure. 2. Emphysema. 3. There is no airspace consolidation or pleural effusion. Ordered Studies 01/24/19 17:12 CT head/brain wo con Stat 01/26/19 11:12 CT head/brain wo con Urgent 01/27/19 15:38 US carotid doppler BI Routine Hospital Course (1) Dizziness: (2) Dehydration: Patient is an 83-year-old female with H/O PAF anticoagulated on warfarin, TBS status post permanent pacemaker placement, HTN, HLD, CKD stage IV baseline creatinine 1.6, venous insufficiency, senile osteoporosis who presents to [facility] ED secondary to dizziness x 1 week. Dizziness--resolved Likely due to BPPV, dehydration, uncontrolled hypertension Uncontrolled hypertension likely contributing to dizziness Chronic dizziness since many months as per Patient's friends CT head negative for acute abnormality or hemorrhage, notable senescent changes and chronic sphenoid sinusitis. Repeat CT Head:Chronic findings as above without acute intracranial abnormality identified. Received IV fluids Was on meclizine PRN--- avoid use is likely contributing to confusion Pacemaker interrogation completed Monitor on Tele--no issues (3) HTN (hypertension): Uncontrolled HTN Likely secondary to chronic kidney disease Blood pressure much improved Continue amlodipine 5 mg daily Metoprolol changed to Coreg 6.25 mg twice daily Blood pressure stable Altered Mental Status--unclear etiology ? Hypertensive Encephalopathy CT head imaging as above Lyme Screen: Negative Worsening mental status since last January which has progressively worsened since since last 2 weeks as per friends Normal TSH, Normal Ammonia level Normal folate, B12 level Vitamin B-1 levels pending EEG: moderately diffusely abnormal EEG revealing evidence for nonspecific nonlateralizing encephalopathy without potentially epileptogenic features Carotid Doppler:No evidence of hemodynamically significant carotid stenosis. Received Rocephin for possible UTI--completed 3 day course Blood Cx: No growth to date Appreciate Neurology and Palliative Care Input Mental status much improved--intermittent confusion, likely at baseline--Likely dementia Needs rehab placement (4) Supratherapeutic INR: Supratherapeutic INR Hematuria in the setting of Coumadin induced supratherapeutic INR INR: 9.2>>>2.9>>2.1>> 2.3 Given 1 dose of p.o. 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 (9) DVT prophylaxis: Coumadin INR therapeutic CODE STATUS Full code for now Unknown if patient has living will Need to readdress CODE STATUS Disposition: Plan to discharge to rehab facility today Total Time Total Time Spent Total Time Spent (In Minutes): 39 minutes Total Time Includes: Examination of the Patient, Discharge Planning, Medication Reconciliation, Communication With Other Providers and Other Discharge Plan Discharge Items Patient Disposition: Transfer Shelter Fac Reason For Visit: HYPERTENSIVE URGENCY Discharge Diagnosis: Hypertensive urgency Dizziness Altered mental status Supratherapeutic INR Activity: Resume your previous activity Exercise/Sports: Gradually increase as tolerated Non-emergency contact: Primary Care Provider Call non-emergency contact if: you have any medication questions, your symptoms worsen, your pain is not controlled, your pain is worsening, your pain is unusual for you, your pain is concerning for you and you have a fever Follow-up/Referrals: Yousif Garner MD [Primary Care Provider] - Diet: Heart Healthy Ambulatory Orders: Prothrombin Time INR (Routine) Timeframe: 3 Days Location: Determined by Patient Ordered By: Shalom Guerra Attending Provider Instructions: Follow-up with your primary care physician Dr. Garner in 1 week upon discharge from rehab facility Follow-up with your neurologist Dr. Adler in 4 weeks as advised Medication Changes: Avoid using meclizine as it could be contributing to your confusion Your metoprolol is discontinued You are started on amlodipine 5 mg daily and carvedilol 6.25 mg twice a day for better control of your blood pressure Get PT/INR in 3 days and follow-up with your physician for managing your Coumadin dosing Seek immediate medical attention if your symptoms reoccur or worsen Pending Studies at Discharge: Yes Studies:: Thiamine levels Stand-Alone Forms: [facility] [facility] [employer] Sk[facility] Items Patient informed of condition?: Yes DNR: No Discharge Level of Care: Skilled Communicable Disease: No Discharge Prognosis: Improving Lines: None Urinary Catheter: No Medications and DC Order Prescriptions: New carvedilol 6.25 mg Tablet 6.25 mg PO BID Qty: 60 RF: 1 amlodipine [Norvasc] 5 mg Tablet 5 mg PO QAM Qty: 30 RF: 1 Continued aspirin 81 mg Tablet,Chewable 81 mg PO QAM RF: 0 cholecalciferol (vitamin D3) [Vitamin D3] 2,000 unit Tablet 2,000 unit PO QAM RF: 0 Changed warfarin [Coumadin] 2.5 mg Tablet 2.5 mg PO DAILY Qty: 0 RF: 0 Discontinued metoprolol succinate 25 mg Tablet Extended Release 24 Hr 25 mg PO QAM Qty: 30 RF: 0 warfarin 2.5 mg tablet 5 mg PO SUTUTHSA@0800 RF: 0 meclizine 25 mg tablet 25 mg PO TID PRN (Reason: Dizziness) RF: 0 Discharge Orders: Discharge Order (Routine); Ordered 01/29/19 Ordered By: Shalom Duque Admission Data Admit Date/Time: 01/24/19 20:32 Attending Provider: Lewis Taylor Admit Provider: Natalia Lofton Primary Care Provider: Yousif Garner Other Providers: Nick Trevino ; Lewis Adler ; Emely Landers ; Lindsay Zaldivar ; Shalom Duque
== END 2019-01-29 14:36 | DRG 305 ==
LOC: ED 15:40 → 2E 20:32 → SUATTDRO 20:32 → 2E 21:23 → 2S 01-25 18:58

== ENCOUNTER 2019-02-20 13:44 | Inpatient (IN) ==
[2019-02-20] MEDS: METOPROLOL TARTRATE 1 MG/ML VIAL IV, SCH ×3 (14:26→18:38)
[2019-02-20] MEDS ORDERED: SODIUM CHLORIDE 0.9% 500 ML IV SCH (14:30)
--- NOTE | 2019-02-20 14:44 | XRay Report ---
SINGLE VIEW CHEST CLINICAL HISTORY: Tachycardia. FINDINGS: An AP, portable, upright chest radiograph is compared to study dated 01/24/2018. The examina tion is degraded by portable technique and patient rotation. A 2-lead cardiac pacemaker is unchanged in position and partially obscures the left mid chest. The heart is enlarged noting atherosclerotic c alcification of the thoracic aorta. The pulmonary vasculature is noncongested. Emphysema and chronic interstitial thickening are similar to previous. Airspace opacities are present the left lung base. N o large pleural effusion or pneumothorax is seen. The skeletal structures are osteopenic. The bony th orax appears intact. Degenerative change and scoliosis are noted in the thoracic spine. IMPRESSION: 1. Cardiomegaly and cardiac pacemaker. There is no radiographic evidence of congestive failure. 2. Emphysema. 3. Airspace opacities are present at the left lung base. This could represent atelectasis versus pneu monia/aspiration pneumonitis. Clinical correlation will be required and radiographic follow-up to res olution is recommended. Electronically signed by: Jd Kingsley M.D. 02/20/2019 2:43 PM
--- NOTE | 2019-02-20 14:58 | Emergency Department Note ---
ED Visit Note This patient was seen in concert with Dr. Hudson and we discussed and agreed upon the history, physical, assessment, and plan. See attending's note for details. . Resident Activity Tracking Resident Involvement: Resident Care Provided Care Provided: Adult ED
[2019-02-20 15:22] LABS: Basophils # (auto) 0.01 K/uL (0-0.2); Basophils % (auto) 0.1 %; Eosinophils # (auto) 0.01 K/uL (0-0.5); Eosinophils % (auto) 0.1 %; Hematocrit (blood only) 45.1 % (37-47); Hemoglobin 14.8 g/dL (12.0-16.0); Immature Granulocytes # (auto) 0.02 K/uL (0.00-0.02); Immature Granulocytes % (auto) 0.2 %; Lymphocytes # (auto) 0.73 K/uL (1.2-3.4); Lymphocytes % (auto) 7.3 %; Mean Corpuscular Hemoglobin 30.9 pg (25-34); Mean Corpuscular Hgb Conc 32.8 g/dL (32-36); Mean Corpuscular Volume 94.2 fL (80-100); Mean Platelet Volume 9.5 fL (7.4-10.4); Monocytes # (auto) 1.05 K/uL (0.11-0.59); Monocytes % (auto) 10.5 %; Neutrophils # (auto) 8.14 K/uL (1.4-6.5); Neutrophils % (auto) 81.8 %; Platelet Count 229 K/uL (130-400); RDW Coefficient of Variation 15.3 % (11.5-14.5); RDW Standard Deviation 52.5 fL (36.4-46.3); Red Blood Count 4.79 M/uL (4.2-5.4); White Blood Count 9.96 K/uL (4.8-10.8)
[2019-02-20 15:33] LABS: INR 1.2 (0.9-1.1); Prothrombin Time 11.8 Seconds (9.0-12.0)
[2019-02-20 15:50] LABS: Alanine Aminotransferase 14 U/L (12-78); Albumin Level 2.8 gm/dl (3.4-5.0); Aspartate Aminotransferase 16 U/L (15-37); BUN Creatinine Ratio 15.2 (10-20); Blood Urea Nitrogen 23 mg/dl (7-18); Calcium 8.7 mg/dl (8.5-10.1); Carbon Dioxide 24 mmol/L (21-32); Chloride 106 mmol/L (98-107); Est GFR (African American) 37.3; Est GFR (Non-African American) 32.1; Glucose 99 mg/dl (70-99); Magnesium 2.2 mg/dl (1.8-2.4); Potassium 4.1 mmol/L (3.5-5.1); Sodium 137 mmol/L (136-145)
[2019-02-20 15:55] LABS: Albumin Globulin Ratio 0.7 (0.9-2); Alkaline Phosphatase 79 U/L (45-117); Bilirubin,Total 0.8 mg/dl (0.2-1); Globulin 4.2 gm/dl (2.5-4.0); Troponin I < 0.015 ng/ml (0-0.045)
[2019-02-20 17:04] LABS: Appearance Urine Cloudy (Clear); Bacteria Urine Automated Negative (Negative); Bilirubin Urine Negative (Negative); Blood Urine Negative (Negative); Color Urine Dark Yellow; Epithelial Cell Urine Auto >30 /lpf (0-5); Glucose Urine UA Negative (Negative); Ketones Urine Negative (Negative); Leukocyte Esterase Urine Trace (Negative); Nitrite Urine Negative (Negative); Protein Urine 1+ (Negative); RBC Urine Automated 0-4 /hpf (0-4); Specific Gravity Urine 1.017 (1.000-1.030); Urobilinogen Urine Negative (Negative)
[2019-02-20] MEDS ORDERED: METOPROLOL TARTRATE 1 MG/ML VIAL IV ONE ×2 (17:10→18:32)
--- NOTE | 2019-02-20 18:10 | Emergency Department Note ---
Entered by Kaycee Dominguez acting as a scribe for Eliana Hudson MD History of Present Illness General Chief complaint: Tachycardia Time Seen by Provider: 02/20/19 13:51 History of Present Illness Provider complaint: tachycardia Onset (ago): day(s) 3 Location: chest Severity: similar to prior episodes Quality: + other (tachycardia) Associated symptoms: + nausea/vomiting (Positive nausea; Negative vomiting) and + other (Positive chest palpitations; Negative urinary symptoms; Positive fatigue); no chest pain, no loss of appetite and no shortness of breath The patient, who is a 83 year old female with a medical history of atrial fibrillation, hypertension and a cardiac pacemaker, presents to the Emergency Room with complaints of tachycardia that has been occurring for the past three days. The patient states that along with this she has been increasingly tired and nauseous. The patient states that she has been experiencing chest palpitations. The patient denies vomiting, diarrhea, chest pain, urinary symptoms, or shortness of breath. The patient states that this morning her at home nurse visited and recorded her heart rate around 150-160s. The patient expresses that she was unable to eat and drink but currently feels very hungry and dehydrated. The patient reports a recent visit to the hospital for similar conditions however her heart rate was unable to be controlled and she was significantly dehydrated. The patient has no other complaints. The patient states that she has not been sick recently. The patient confirms that she is taking her medication as prescribed. Home Medications Home Medications Medication Instructions Recorded Confirmed Type aspirin 81 mg PO QAM 01/23/18 02/20/19 History cholecalciferol (vitamin D3) 2,000 unit PO QAM 01/23/18 02/20/19 History [Vitamin D3] amlodipine [Norvasc] 5 mg PO QAM #30 tab 01/29/19 02/20/19 Rx carvedilol 6.25 mg PO BID #60 tab 01/29/19 02/20/19 Rx thiamine HCl (vitamin B1) 100 mg/kg PO DAILY 02/20/19 02/20/19 History warfarin [Coumadin] 2 mg PO DAILY 02/20/19 02/20/19 History Allergies Allergy/AdvReac Type Severity Reaction Status Date / Time No Known Allergies Allergy Unverified 02/20/19 15:29 Past Med/Surg History Medical History Cardiac pacemaker Chronic kidney disease (CKD), stage IV (severe) HLD (hyperlipidemia) HTN (hypertension) Osteoporosis PAF (paroxysmal atrial fibrillation) pt admitted for elective ppm due to TBS; underwent procedure without any complications. her diltiazem was stopped and she was started on toprol and amiodarone; monitored overnight and discharged home. 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 her diltiazem was stopped and she was started on toprol and amiodarone; monitored overnight and discharged home. Surgical History History of total right hip arthroplasty Family History Other Unknown family medical history Social History Preferred Language: Beninese Communication Ability: Effective [employer] Required: No Beliefs That Will Affect Care: None marital status: Single Current Living Situation: Alone Current Living Situation Comment: In house with friend Other Information That Helps Us Care for You: No Feels Safe at Home: Yes Safety Concerns: Feels Safe At This Time Smoking Status: Never smoker Do You Dip or Chew Tobacco: No ; Second Hand Exposure: No ; Tobacco Cessation Education Requested by Patient: No Hx Alcohol Use: No Hx Substance Use: No Review of Systems See HPI for pertinent positives & negatives. and A total of 10 systems reviewed and were otherwise negative Physical Exam Vital Signs Vital Signs - 24 hr 02/20/19 13:55 02/20/19 14:10 02/20/19 14:15 Temperature 37.5 C Temperature Source Oral Pulse Rate 148 H 142 H 161 H Pulse Rate from SpO2 Sensor 149 H 155 H Respiratory Rate 17 19 17 Respiratory Effort / Characteristics Non-Labored Spontaneous Respiratory Depth Normal Respiratory Pattern Regular Blood Pressure 91/73 L 111/70 103/86 Blood Pressure Mean 79 94 92 Pulse Oximetry 94 93 93 Oxygen Delivery Method Room Air Sepsis Recent Fever Within 48 Hours No Sepsis New/Unexplained Change in Mental Status No Sepsis Action Taken by Nursing No Action Required 02/20/19 14:26 02/20/19 14:30 02/20/19 14:40 Temperature Temperature Source Pulse Rate 157 H 150 H 74 Pulse Rate from SpO2 Sensor 132 H 81 Respiratory Rate 16 24 Respiratory Effort / Characteristics Respiratory Depth Respiratory Pattern Blood Pressure 103/86 109/86 Blood Pressure Mean 96 Pulse Oximetry 92 93 Oxygen Delivery Method Sepsis Recent Fever Within 48 Hours Sepsis New/Unexplained Change in Mental Status Sepsis Action Taken by Nursing 02/20/19 14:50 02/20/19 15:00 02/20/19 15:15 Temperature Temperature Source Pulse Rate 78 81 75 Pulse Rate from SpO2 Sensor 73 74 75 Respiratory Rate 22 22 20 Respiratory Effort / Characteristics Respiratory Depth Respiratory Pattern Blood Pressure 118/92 122/88 Blood Pressure Mean 100 106 Pulse Oximetry 92 95 93 Oxygen Delivery Method Sepsis Recent Fever Within 48 Hours Sepsis New/Unexplained Change in Mental Status Sepsis Action Taken by Nursing 02/20/19 15:30 02/20/19 15:45 02/20/19 16:00 Temperature Temperature Source Pulse Rate 73 75 77 Pulse Rate from SpO2 Sensor 73 75 77 Respiratory Rate 21 18 19 Respiratory Effort / Characteristics Respiratory Depth Respiratory Pattern Blood Pressure 126/82 132/74 137/82 Blood Pressure Mean 107 98 98 Pulse Oximetry 93 94 93 Oxygen Delivery Method Room Air Sepsis Recent Fever Within 48 Hours Sepsis New/Unexplained Change in Mental Status Sepsis Action Taken by Nursing 02/20/19 16:15 02/20/19 16:30 02/20/19 16:31 Temperature Temperature Source Pulse Rate 76 55 L 82 Pulse Rate from SpO2 Sensor 76 57 L Respiratory Rate 21 14 18 Respiratory Effort / Characteristics Respiratory Depth Respiratory Pattern Blood Pressure 118/75 139/87 Blood Pressure Mean 90 98 Pulse Oximetry 92 94 Oxygen Delivery Method Sepsis Recent Fever Within 48 Hours Sepsis New/Unexplained Change in Mental Status Sepsis Action Taken by Nursing 02/20/19 16:33 02/20/19 16:36 02/20/19 16:40 Temperature Temperature Source Pulse Rate 150 H 76 142 H Pulse Rate from SpO2 Sensor Respiratory Rate 23 24 31 H Respiratory Effort / Characteristics Respiratory Depth Respiratory Pattern Blood Pressure 146/85 H 129/101 H Blood Pressure Mean 93 110 Pulse Oximetry Oxygen Delivery Method Sepsis Recent Fever Within 48 Hours Sepsis New/Unexplained Change in Mental Status Sepsis Action Taken by Nursing 02/20/19 16:45 02/20/19 16:50 02/20/19 16:53 Temperature Temperature Source Pulse Rate 150 H 147 H 155 H Pulse Rate from SpO2 Sensor Respiratory Rate 20 20 20 Respiratory Effort / Characteristics Respiratory Depth Respiratory Pattern Blood Pressure 114/95 117/81 Blood Pressure Mean 99 96 Pulse Oximetry Oxygen Delivery Method Sepsis Recent Fever Within 48 Hours Sepsis New/Unexplained Change in Mental Status Sepsis Action Taken by Nursing 02/20/19 17:00 02/20/19 17:01 02/20/19 17:10 Temperature Temperature Source Pulse Rate 143 H 133 H 152 H Pulse Rate from SpO2 Sensor Respiratory Rate 23 27 H 27 H Respiratory Effort / Characteristics Respiratory Depth Respiratory Pattern Blood Pressure 118/81 Blood Pressure Mean 93 Pulse Oximetry Oxygen Delivery Method Sepsis Recent Fever Within 48 Hours Sepsis New/Unexplained Change in Mental Status Sepsis Action Taken by Nursing 02/20/19 17:14 02/20/19 17:20 02/20/19 17:27 Temperature Temperature Source Pulse Rate 157 H 81 60 Pulse Rate from SpO2 Sensor Respiratory Rate 15 20 Respiratory Effort / Characteristics Respiratory Depth Respiratory Pattern Blood Pressure 118/81 114/71 Blood Pressure Mean 81 Pulse Oximetry Oxygen Delivery Method Sepsis Recent Fever Within 48 Hours Sepsis New/Unexplained Change in Mental Status Sepsis Action Taken by Nursing 02/20/19 17:30 02/20/19 18:00 02/20/19 18:38 Temperature Temperature Source Pulse Rate 72 82 156 H Pulse Rate from SpO2 Sensor Respiratory Rate 20 21 Respiratory Effort / Characteristics Respiratory Depth Respiratory Pattern Blood Pressure 108/63 120/88 131/91 Blood Pressure Mean 77 97 Pulse Oximetry Oxygen Delivery Method Sepsis Recent Fever Within 48 Hours Sepsis New/Unexplained Change in Mental Status Sepsis Action Taken by Nursing Vital signs reviewed. General: Frail-appearing, elderly, thin female, in no significant distress. HEENT: No scleral icterus, PERRLA, neck supple. Atraumatic. Cardiovascular: Tachycardic rate and irregular rhythm, no extra sounds. Pulmonary: Crackles at the bases bilaterally, normal work of breathing. Abdomen: Soft, nontender, nondistended, positive bowel sounds. Musculoskeletal: Atraumatic, no peripheral edema. Neurologic: Patient awake alert and oriented x 3 Skin: Warm, dry, no rash Course Course 1359: Past medical records reviewed. The patient was evaluated in room C8. A complete history and physical exam was performed. 173: I reassessed the patient and updated her on her results. 174: I reviewed the patient's [facility] He will evaluate the patient for further management. Consultations Consultation #1: I reviewed the patient's case with Eyal Ayon Hospitalist. He will evaluate the patient for further management. Time: 17:44 Administered Medications Amiodarone HCl (Cordarone) 400 mg PO TIDM [facility] Stop: 03/23/19 11:59 Last Admin: 02/21/19 16:56 Dose: 400 mg Documented by: [id number] Admin: 02/21/19 12:12 Dose: 400 mg Documented by: [id number] Aspirin (Ecotrin Ectab) 81 mg PO QAM [facility] Stop: 03/23/19 08:59 Last Admin: 02/21/19 08:40 Dose: 81 mg Documented by: [id number] Carvedilol (Coreg) 6.25 mg PO BID [facility] Stop: 03/22/19 20:59 Last Admin: 02/21/19 08:40 Dose: 6.25 mg Documented by: [id number] Admin: 02/20/19 21:31 Dose: 6.25 mg Documented by: [id number] Doxycycline Hyclate (Vibramycin) 100 mg PO BID [facility] Stop: 02/25/19 20:59 Last Admin: 02/21/19 08:40 Dose: 100 mg Documented by: [id number] Admin: 02/20/19 21:30 Dose: 100 mg Documented by: [id number] Diltiazem HCl 125 mg/ Dextrose 125 mls @ 5 mls/hr IV .Q24H [facility]; Protocol Stop: 03/22/19 19:59 Last Titration: 02/21/19 17:36 Dose: 0 mg/hr, 0 mls/hr Documented by: [id number] Cosigned by: [id number] Titration: 02/21/19 10:46 Dose: 5 mg/hr, 5 mls/hr Documented by: [id number] Cosigned by: [id number] Titration: 02/21/19 09:56 Dose: 10 mg/hr, 10 mls/hr Documented by: [id number] Cosigned by: [id number] Titration: 02/21/19 07:17 Dose: 15 mg/hr, 15 mls/hr Documented by: [id number] Cosigned by: [id number] Admin: 02/21/19 06:07 Dose: 15 mg/hr, 15 mls/hr Documented by: [id number] Cosigned by: [id number] Titration: 02/21/19 06:07 Dose: 15 mg/hr, 15 mls/hr Documented by: [id number] Cosigned by: [id number] Titration: 02/21/19 00:34 Dose: 15 mg/hr, 15 mls/hr Documented by: [id number] Cosigned by: [id number] Titration: 02/20/19 23:19 Dose: 10 mg/hr, 10 mls/hr Documented by: [id number] Cosigned by: [id number] Titration: 02/20/19 22:12 Dose: 10 mg/hr, 10 mls/hr Documented by: [id number] Cosigned by: [id number] Admin: 02/20/19 20:14 Dose: 5 mg/hr, 5 mls/hr Documented by: [id number] Cosigned by: [id number] Heparin Sodium/Dextrose (Heparin Sodium/Dextrose) 25,000 units in 500 mls @ 8 m ls/hr IV .Q24H [facility]; Protocol Stop: 03/22/19 19:59 Last Titration: 02/21/19 19:04 Dose: 400 units/hr, 8 mls/hr Documented by: [id number] Cosigned by: [id number] Titration: 02/21/19 17:56 Dose: 400 units/hr, 8 mls/hr Documented by: [id number] Cosigned by: [id number] Titration: 02/21/19 17:21 Dose: 0 units/hr, 0 mls/hr Documented by: [id number] Cosigned by: [id number] Titration: 02/21/19 11:40 Dose: 500 units/hr, 10 mls/hr Documented by: [id number] Cosigned by: [id number] Titration: 02/21/19 10:45 Dose: 0 units/hr, 0 mls/hr Documented by: [id number] Cosigned by: [id number] Titration: 02/21/19 07:16 Dose: 600 units/hr, 12 mls/hr Documented by: [id number] Cosigned by: [id number] Titration: 02/21/19 04:06 Dose: 600 units/hr, 12 mls/hr Documented by: [id number] Cosigned by: [id number] Titration: 02/21/19 03:05 Dose: 0 units/hr, 0 mls/hr Documented by: [id number] Cosigned by: [id number] Titration: 02/20/19 23:19 Dose: 700 units/hr, 14 mls/hr Documented by: [id number] Cosigned by: [id number] Admin: 02/20/19 20:37 Dose: 700 units/hr, 14 mls/hr Documented by: [id number] Cosigned by: [id number] Ceftriaxone Sodium 1,000 mg/ (Dextrose) 50 mls @ 100 mls/hr IV Q24H [facility]; Protocol Stop: 03/03/19 01:59 Last Infusion: 02/21/19 02:30 Dose: 0 mls/hr Documented by: [id number] Admin: 02/21/19 01:54 Dose: 100 mls/hr Documented by: [id number] Metoprolol Tartrate (Lopressor) 2.5 mg IV Q4 PRN PRN Reason: for HR above 120 Stop: 03/22/19 19:48 Last Admin: 02/21/19 00:38 Dose: 2.5 mg Documented by: [id number] Thiamine HCl (Vitamin B-1) 100 mg PO DAILY [facility] Stop: 03/23/19 08:59 Last Admin: 02/21/19 08:40 Dose: 100 mg Documented by: [id number] Vitamin D (Vitamin D3) 2,000 units PO QAM [facility] Stop: 03/23/19 08:59 Last Admin: 02/21/19 08:40 Dose: 2,000 units Documented by: [id number] Warfarin Sodium (Coumadin) 3 mg PO DAILY@1600 [facility] Stop: 03/23/19 15:59 Last Admin: 02/21/19 16:57 Dose: 3 mg Documented by: [id number] Discontinued Medications Diltiazem HCl (Cardizem) 10 mg IV NOW STA Stop: 02/20/19 19:50 Last Admin: 02/20/19 20:13 Dose: 10 mg Documented by: [id number] Cosigned by: [id number] Sodium Chloride (Nss) 500 mls @ 999 mls/hr IV .Q31M [facility] Stop: 02/20/19 14:45 Last Infusion: 02/20/19 15:00 Dose: 0 mls/hr Documented by: [id number] Admin: 02/20/19 14:30 Dose: 999 mls/hr Documented by: [id number] Sodium Chloride (Nss 1000ml) 1,000 mls @ 80 mls/hr IV .[id number] [facility] Stop: 02/21/19 08:18 Last Infusion: 02/21/19 08:44 Dose: 0 mls/hr Documented by: [id number] Infusion: 02/21/19 01:52 Dose: 0 mls/hr Documented by: [id number] Admin: 02/20/19 20:14 Dose: 80 mls/hr Documented by: [id number] Sodium Chloride (Nss) 500 mls @ 500 mls/hr IV .Q1H ONE Stop: 02/21/19 02:21 Last Infusion: 02/21/19 02:55 Dose: 0 mls/hr Documented by: [id number] Admin: 02/21/19 01:52 Dose: 500 mls/hr Documented by: [id number] Digoxin 250 mcg/ Syringe 10 mls @ 2 mls/min IV NOW STA Stop: 02/21/19 01:39 Last Admin: 02/21/19 01:53 Dose: 2 mls/min Documented by: [id number] Potassium Chloride ([place] / Wtr) 10 meq in 100 mls @ 100 mls/hr IV ONE ONE Stop: 02/21/19 05:29 Last Infusion: 02/21/19 06:00 Dose: 0 mls/hr Documented by: [id number] Admin: 02/21/19 04:55 Dose: 100 mls/hr Documented by: [id number] Metoprolol Tartrate (Lopressor) 5 mg IV, Q5M [facility] Stop: 02/20/19 14:41 Last Admin: 02/20/19 18:38 Dose: 5 mg Documented by: [id number] Admin: 02/20/19 17:14 Dose: 5 mg Documented by: [id number] Admin: 02/20/19 14:26 Dose: 5 mg Documented by: [id number] Metoprolol Tartrate (Lopressor) Confirm Administered Dose 5 mg IV .STK-MED ONE Stop: 02/20/19 17:11 Last Admin: 02/20/19 18:31 Dose: Not Given Documented by: [id number] Metoprolol Tartrate (Lopressor) Confirm Administered Dose 5 mg IV .STK-MED ONE Stop: 02/20/19 18:33 Last Admin: 02/20/19 18:38 Dose: Not Given Documented by: [id number] Metoprolol Tartrate (Lopressor) 2.5 mg IV NOW STA Stop: 02/20/19 18:50 Last Admin: 02/20/19 19:00 Dose: 2.5 mg Documented by: [id number] Warfarin Sodium (Coumadin) 2.5 mg PO ONE ONE Stop: 02/20/19 20:01 Last Admin: 02/20/19 21:30 Dose: 2.5 mg Documented by: [id number] Critical Care Time Critical Care Time: Yes Total Critical Care Time: 30 I have personally spent 30 minutes of critical care time in the direct management of this patient. This includes bedside care, interpretation of diagnostic studies, and testing, discussion with consultants, patient, and family members, and other required patient management activities. This 30 minutes is in excess of all separately billable procedures. Medical Decision Making Differential Diagnosis Differential diagnosis includes: premature contractions, electrolyte abnormality, cardiac dysrhythmia, thyroid dysfunction, pulmonary embolism, infection, gastrointestinal, as well as others were entertained. Medical Records Attestation: I reviewed the patient's medical records. Home Medications Current Medication List: was personally reviewed by me Laboratory Data Attestation: I reviewed the patient's lab results. Result diagrams: 02/21/19 01:59 02/21/19 01:59 Lab Results 02/20/19 02/20/19 02/20/19 Range/Units 15:15 15:15 15:15 WBC 9.96 (4.8-10.8) K/uL RBC 4.79 (4.2-5.4) M/uL Hgb 14.8 (12.0-16.0) g/dL Hct 45.1 (37-47) % MCV 94.2 (80-100) fL MCH 30.9 (25-34) pg MCHC 32.8 (32-36) g/dL RDW Std Deviation 52.5 H (36.4-46.3) fL RDW Coeff of Filiberto 15.3 H (11.5-14.5) % Plt Count 229 (130-400) K/uL MPV 9.5 (7.4-10.4) fL Immature Gran % (Auto) 0.2 % Neut % (Auto) 81.8 % Lymph % (Auto) 7.3 % [place] % (Auto) 10.5 % Eos % (Auto) 0.1 % Baso % (Auto) 0.1 % Immature Gran # (Auto) 0.02 (0.00-0.02) K/uL Neut # (Auto) 8.14 H (1.4-6.5) K/uL Lymph # (Auto) 0.73 L (1.2-3.4) K/uL [place] # (Auto) 1.05 H (0.11-0.59) K/uL Eos # (Auto) 0.01 (0-0.5) K/uL Baso # (Auto) 0.01 (0-0.2) K/uL PT 11.8 (9.0-12.0) Seconds INR 1.2 H (0.9-1.1) APTT (21.0-31.0) Seconds PTT Ratio Sodium 137 (136-145) mmol/L Potassium 4.1 (3.5-5.1) mmol/L Chloride 106 (98-107) mmol/L Carbon Dioxide 24 (21-32) mmol/L Anion Gap 8.0 (3-11) BUN 23 H (7-18) mg/dl Creatinine 1.49 H (0.6-1.2) mg/dl Est Cr Clr Drug Dosing Not Reportable Est GFR ( Amer) 37.3 Est GFR (Non-Af Amer) 32.1 BUN/Creatinine Ratio 15.2 (10-20) Glucose 99 (70-99) mg/dl Calcium 8.7 (8.5-10.1) mg/dl Magnesium 2.2 (1.8-2.4) mg/dl Total Bilirubin 0.8 (0.2-1) mg/dl AST 16 (15-37) U/L ALT 14 (12-78) U/L Alkaline Phosphatase 79 (45-117) U/L Troponin I < 0.015 (0-0.045) ng/ml Total Protein 7.0 (6.4-8.2) gm/dl Albumin 2.8 L (3.4-5.0) gm/dl Globulin 4.2 H (2.5-4.0) gm/dl Albumin/Globulin Ratio 0.7 L (0.9-2) Urine Color Urine Appearance (Clear) Urine pH (4.5-7.5) Ur Specific [place] (1.000-1.030) Urine Protein (Negative) Urine Glucose (UA) (Negative) Urine Ketones (Negative) Urine Blood (Negative) Urine Nitrite (Negative) Urine Bilirubin (Negative) Urine Urobilinogen (Negative) Ur Leukocyte Esterase (Negative) Urine WBC (Auto) (0-5) /hpf Urine RBC (Auto) (0-4) /hpf U Hyaline Cast (Auto) (0-5) /lpf U Epithel Cells (Auto) (0-5) /lpf Urine Bacteria (Auto) (Negative) Ur Renal Epithelial Cell (0-5) /lpf 02/20/19 02/20/19 Range/Units 15:15 16:40 WBC (4.8-10.8) K/uL RBC (4.2-5.4) M/uL Hgb (12.0-16.0) g/dL Hct (37-47) % MCV (80-100) fL MCH (25-34) pg MCHC (32-36) g/dL RDW Std Deviation (36.4-46.3) fL RDW Coeff of Filiberto (11.5-14.5) % Plt Count (130-400) K/uL MPV (7.4-10.4) fL Immature Gran % (Auto) % Neut % (Auto) % Lymph % (Auto) % [place] % (Auto) % Eos % (Auto) % Baso % (Auto) % Immature Gran # (Auto) (0.00-0.02) K/uL Neut # (Auto) (1.4-6.5) K/uL Lymph # (Auto) (1.2-3.4) K/uL [place] # (Auto) (0.11-0.59) K/uL Eos # (Auto) (0-0.5) K/uL Baso # (Auto) (0-0.2) K/uL PT (9.0-12.0) Seconds INR (0.9-1.1) APTT 37.0 H (21.0-31.0) Seconds PTT Ratio 1.4 Sodium (136-145) mmol/L Potassium (3.5-5.1) mmol/L Chloride (98-107) mmol/L Carbon Dioxide (21-32) mmol/L Anion Gap (3-11) BUN (7-18) mg/dl Creatinine (0.6-1.2) mg/dl Est Cr Clr Drug Dosing Est GFR ( Amer) Est GFR (Non-Af Amer) BUN/Creatinine Ratio (10-20) Glucose (70-99) mg/dl Calcium (8.5-10.1) mg/dl Magnesium (1.8-2.4) mg/dl Total Bilirubin (0.2-1) mg/dl AST (15-37) U/L ALT (12-78) U/L Alkaline Phosphatase (45-117) U/L Troponin I (0-0.045) ng/ml Total Protein (6.4-8.2) gm/dl Albumin (3.4-5.0) gm/dl Globulin (2.5-4.0) gm/dl Albumin/Globulin Ratio (0.9-2) Urine Color Dark Yellow Urine Appearance Cloudy A (Clear) Urine pH 5.0 (4.5-7.5) Ur Specific [place] 1.017 (1.000-1.030) Urine Protein 1+ H (Negative) Urine Glucose (UA) Negative (Negative) Urine Ketones Negative (Negative) Urine Blood Negative (Negative) Urine Nitrite Negative (Negative) Urine Bilirubin Negative (Negative) Urine Urobilinogen Negative (Negative) Ur Leukocyte Esterase Trace H (Negative) Urine WBC (Auto) 10-30 H (0-5) /hpf Urine RBC (Auto) 0-4 (0-4) /hpf U Hyaline Cast (Auto) 10-30 H (0-5) /lpf U Epithel Cells (Auto) >30 H (0-5) /lpf Urine Bacteria (Auto) Negative (Negative) Ur Renal Epithelial Cell 10-20 H (0-5) /lpf Imaging Data Radiologist's Impression: Radiology results as stated below per my review and the radiologist's interpretation: SINGLE VIEW CHEST CLINICAL HISTORY: Tachycardia. FINDINGS: An AP, portable, upright chest radiograph is compared to study dated 01/24/2018. The examination is degraded by portable technique and patient rotation. A 2-lead cardiac pacemaker is unchanged in position and partially obscures the left mid chest. The heart is enlarged noting atherosclerotic calcification of the thoracic aorta. The pulmonary vasculature is noncongested. Emphysema and chronic interstitial thickening are similar to previous. Airspace opacities are present the left lung base. No large pleural effusion or pneumothorax is seen. The skeletal structures are osteopenic. The bony thorax appears intact. Degenerative change and scoliosis are noted in the thoracic spine. IMPRESSION: 1. Cardiomegaly and cardiac pacemaker. There is no radiographic evidence of congestive failure. 2. Emphysema. 3. Airspace opacities are present at the left lung base. This could represent a telectasis versus pneumonia/aspiration pneumonitis. Clinical correlation will be required and radiographic follow-up to resolution is recommended. Electronically signed by: Jd Kingsley M.D. 02/20/2019 2:43 PM ECG Data Attestation: I personally reviewed and interpreted this ECG as follows: Indication: + palpitations and + tachycardia Rate (beats per minute): 149 Rhythm: + atrial fibrillation (with RVR) ECG Intervals/blocks: + Normal QT-c ECG Findings: + Other (Previous inferior infarct; No ectopy; No acute ST change) Blood Pressure Blood Pressure Findings: Normal blood pressure MDM Narrative This patient was evaluated and appeared to be in no significant distress. Physical examination reveals a rapid atrial fibrillation at 149 bpm. IV access was obtained and laboratory work was drawn. Patient's EKG confirms the finding. Patient was given IV metoprolol 5 mg with significant improvement. Patient was observed return to RVR. Patient was given a second dose of IV metoprolol. Chest x-ray reveals likely atelectasis. Laboratory work reveals a normal WBC and negative troponin. Patient's INR is 1.2. Patient will be evaluated by the hospitalist service for further management. Patient and family are aware of the plan and agree. Impression & Plan Atrial fibrillation, rapid Discharge Plan Visit Data *Final* Discharge Date/Time: 02/20/19 17:20 Chief Complaint: Tachycardia ED Provider: Eliana Hudson ED Midlevel Provider: Danish Cornejo Discharge Problem: Atrial fibrillation, rapid Patient Disposition: Admitted As Inpatient Discharge Instructions Interventions: ED Discharge Assessment Last Done: 02/20/19 17:20 The scribe's documentation has been prepared under my direction and personally reviewed by me in its entirety. I confirm that the note above accurately reflects all work, treatment, procedures, and medical decision making performed by me.
--- NOTE | 2019-02-20 18:48 | History & Physical Report ---
Date of Service February 20, 2019 Assessment & Plan (1) Atrial fibrillation with RVR: Present on admission with palpitation with elevated HR Possible related to dehydration due to poor oral intake EKG on admission showed A. fib with RVR. Received IV Lopressor 5 mg x 3, then converted to sinus rhythm and back to Afib with RVR Case discussed with cardiology on [facility] dr. Will Solis agreed to start on cardizem drip, will give cardizem bolus 10mg x1 Will start on heparin drip while in the hospital since her INR is subtheurapeutic Continue coumadin and carvedilol Monitor PT/INR Will monitor closely in tele Will get an echo in am cardiology consult Lung opacity CXR showed airspace opacities are present at the left lung base. denies any cough/fever Will give 5 days course of doxycycline CKD stage 4 Creatinine on admission 1.4, at baseline Monitor BMP Tachy-jacque syndrome s/p PPM Will do pacemaker interrogation Nausea Very poor appetite, will give gentle hydration On Zofran prn DVT px on heparin drip Code status full code History of Present Illness Chief Complaint: Palpitations Primary Care Provider: Daylin Kelley MD 83-year-old female who is significant past medical history of PAF anticoagulated on warfarin, TBS status post permanent pacemaker placement, HTN, HLD, CKD stage IV, venous insufficiency, senile osteoporosis who presents to [facility] ED with c/o palpitations. Patient is a very poor historian. patient said for the past 3 days she has been having palpitation associated with shortness of breath. She said that she does not have any energy to do anything and feels weak. She said her appetite has been very poor. She said that she has not been eating or drinking anything for the past 3 days due to nausea. She was seen today by the home health nurse and her heart rate was found to be in the 150s. She said that she is hungry now and would like to eat something. Heart rate in the ER increase in the 157. Received IV Lopressor 5 mg x 3 dose and lopressor 2.5 mg x 1 in the ER, converted to sinus rhythm and back to afib with RVR. Denies any chest pain, dizziness, fever, and vomiting. Allergies Allergy/AdvReac Type Severity Reaction Status Date / Time No Known Allergies Allergy Unverified 02/20/19 15:29 Home Medications Home Medications Medication Instructions Recorded Confirmed Type aspirin 81 mg PO QAM 01/23/18 02/20/19 History cholecalciferol (vitamin D3) 2,000 unit PO QAM 01/23/18 02/20/19 History [Vitamin D3] amlodipine [Norvasc] 5 mg PO QAM #30 tab 01/29/19 02/20/19 Rx carvedilol 6.25 mg PO BID #60 tab 01/29/19 02/20/19 Rx thiamine HCl (vitamin B1) 100 mg/kg PO DAILY 02/20/19 02/20/19 History warfarin [Coumadin] 2 mg PO DAILY 02/20/19 02/20/19 History Past Med/Surg History Medical History Cardiac pacemaker Chronic kidney disease (CKD), stage IV (severe) HLD (hyperlipidemia) HTN (hypertension) Osteoporosis PAF (paroxysmal atrial fibrillation) pt admitted for elective ppm due to TBS; underwent procedure without any complications. her diltiazem was stopped and she was started on toprol and amiodarone; monitored overnight and discharged home. 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 her diltiazem was stopped and she was started on toprol and amiodarone; monitored overnight and discharged home. Surgical History History of total right hip arthroplasty Family History Other Unknown family medical history Social History Preferred Language: Citizen Of [place] Communication Ability: Effective A And P Technician Required: No Beliefs That Will Affect Care: None marital status: / Current Living Situation: Other Current Living Situation Comment: In house with friend Feels Safe at Home: Yes Smoking Status: Never smoker Hx Alcohol Use: No Hx Substance Use: No Review of Systems Review of Systems: All systems reviewed & are unremarkable except as noted in HPI & below Physical Exam Physical Exam: General- No acute distress Head- atraumatic Eyes- PERRL, EOMI, ENT- oropharynx clear, dry mouth Neck- supple, no JVD Lungs- clear to auscultation Heart- irregular rhythm Abdomen- normal bowel sounds, soft, nontender Extremities- no calf tenderness Neuro- alert, oriented x 3; PERRL, EOMI; no facial palsy; no dysarthria Skin- warm & dry Results & Data Vital Signs (Past 12 Hours) Vital Signs Temp Pulse Resp BP Pulse Ox 02/20/19 18:38 156 H 131/91 02/20/19 18:00 82 21 120/88 02/20/19 17:30 72 20 108/63 02/20/19 17:27 60 20 114/71 02/20/19 17:20 81 15 02/20/19 17:14 157 H 118/81 02/20/19 17:10 152 H 27 H 02/20/19 17:01 133 H 27 H 02/20/19 17:00 143 H 23 118/81 02/20/19 16:53 155 H 20 117/81 02/20/19 16:50 147 H 20 02/20/19 16:45 150 H 20 114/95 02/20/19 16:40 142 H 31 H 02/20/19 16:36 76 24 129/101 H 02/20/19 16:33 150 H 23 146/85 H 02/20/19 16:31 82 18 02/20/19 16:30 55 L 14 139/87 94 02/20/19 16:15 76 21 118/75 92 02/20/19 16:00 77 19 137/82 93 02/20/19 15:45 75 18 132/74 94 02/20/19 15:30 73 21 126/82 93 02/20/19 15:15 75 20 122/88 93 02/20/19 15:00 81 22 118/92 95 02/20/19 14:50 78 22 92 02/20/19 14:40 74 24 93 02/20/19 14:30 150 H 16 109/86 92 02/20/19 14:26 157 H 103/86 02/20/19 14:15 161 H 17 103/86 93 02/20/19 14:10 142 H 19 111/70 93 02/20/19 13:55 37.5 C 148 H 17 91/73 L 94 Diagnostic Findings SINGLE VIEW CHEST CLINICAL HISTORY: Tachycardia. FINDINGS: An AP, portable, upright chest radiograph is compared to study dated 01/24/2018. The examination is degraded by portable technique and patient rotation. A 2-lead cardiac pacemaker is unchanged in position and partially obscures the left mid chest. The heart is enlarged noting atherosclerotic calcification of the thoracic aorta. The pulmonary vasculature is noncongested. Emphysema and chronic interstitial thickening are similar to previous. Airspace opacities are present the left lung base. No large pleural effusion or pneumothorax is seen. The skeletal structures are osteopenic. The bony thorax appears intact. Degenerative change and scoliosis are noted in the thoracic spine. IMPRESSION: 1. Cardiomegaly and cardiac pacemaker. There is no radiographic evidence of congestive failure. 2. Emphysema. 3. Airspace opacities are present at the left lung base. This could represent atelectasis versus pneumonia/aspiration pneumonitis. Clinical correlation will be required and radiographic follow-up to resolution is recommended. Electronically signed by: Jd Kingsley M.D. 02/20/2019 2:43 PM Dictated: 02/20/19 1441 Transcribed: 02/20/19 1441
[2019-02-20] MEDS ORDERED: METOPROLOL TARTRATE 1 MG/ML VIAL IV STA (18:49)
[2019-02-20] MEDS ORDERED: ONDANSETRON INJ 2 MG/ML 2 ML VIAL IV PRN (19:49)
[2019-02-20] MEDS ORDERED: SODIUM CHLORIDE 0.9% 1000ML 1,000 ML IV SCH (19:49)
[2019-02-20] MEDS ORDERED: dilTIAZem HCl 5 MG/ML 5 ML VIAL IV STA (19:49)
[2019-02-20] MEDS ORDERED: METOPROLOL TARTRATE 1 MG/ML VIAL IV PRN (19:49)
[2019-02-20] MEDS ORDERED: Heparin IV Standard *NO* Bolus IV SCH (20:00)
[2019-02-20] MEDS ORDERED: WARFARIN SOD 2.5 MG TAB PO ONE (20:00)
[2019-02-20] MEDS: dilTIAZem HCL 125 MG in DEXTROSE 5% 100 ML IV SCH (20:14)
[2019-02-20] MEDS: HEPARIN SODIUM/DEXTROSE 25,000 UNITS/500 ML BAG IV SCH (20:37)
[2019-02-20 21:17] LABS: Partial Thromboplastin Ratio 1.4
[2019-02-20] MEDS: DOXYCYCLINE HYCLATE 100 MG CAP PO SCH (21:30)
[2019-02-20] MEDS: carvediloL 6.25 MG TAB PO SCH (21:31)
[2019-02-21] MEDS ORDERED: SODIUM CHLORIDE 0.9% 500 ML IV ONE (01:22)
--- NOTE | 2019-02-21 01:24 | Communication Note ---
Date of Service: February 21, 2019 Made aware by RN of patient agitation. AP Delirium ? Possible UTI Patient not septic. Follow urine cultures, IV Ceftriaxone for now. Will relay to AM provider.
[2019-02-21] MEDS ORDERED: DIGOXIN 250 MCG in SYRINGE 9 ML IV STA (01:35)
[2019-02-21] MEDS: cefTRIAXone SODIUM 1,000 MG in DEXTROSE 5% 50 ML IV SCH (01:54)
[2019-02-21 02:33] LABS: Basophils # (auto) 0.01 K/uL (0-0.2); Basophils % (auto) 0.1 %; Eosinophils # (auto) 0.01 K/uL (0-0.5); Eosinophils % (auto) 0.1 %; Hematocrit (blood only) 44.7 % (37-47); Hemoglobin 14.9 g/dL (12.0-16.0); Immature Granulocytes # (auto) 0.03 K/uL (0.00-0.02); Immature Granulocytes % (auto) 0.3 %; Lymphocytes # (auto) 0.99 K/uL (1.2-3.4); Lymphocytes % (auto) 10.2 %; Mean Corpuscular Hemoglobin 30.7 pg (25-34); Mean Corpuscular Hgb Conc 33.3 g/dL (32-36); Mean Platelet Volume 9.8 fL (7.4-10.4); Monocytes # (auto) 0.82 K/uL (0.11-0.59); Monocytes % (auto) 8.4 %; Neutrophils # (auto) 7.86 K/uL (1.4-6.5); Neutrophils % (auto) 80.9 %; Platelet Count 227 K/uL (130-400); RDW Coefficient of Variation 15.4 % (11.5-14.5); RDW Standard Deviation 51.8 fL (36.4-46.3); Red Blood Count 4.86 M/uL (4.2-5.4); White Blood Count 9.72 K/uL (4.8-10.8)
[2019-02-21 02:51] LABS: BUN Creatinine Ratio 18.9 (10-20); Calcium 8.4 mg/dl (8.5-10.1); Creatinine Clr Calc Pharmacy 18.6 ml/min; Est GFR (African American) 40.2; Est GFR (Non-African American) 34.7; Potassium 3.9 mmol/L (3.5-5.1)
[2019-02-21 02:55] LABS: INR 1.3 (0.9-1.1); Partial Thromboplastin Ratio 3.8; Prothrombin Time 13.2 Seconds (9.0-12.0)
[2019-02-21 03:02] LABS: Thyroid Stimulating Hormone 0.729 uIu/ml (0.300-4.500)
[2019-02-21 03:03] LABS: Partial Thromboplastin Time 103.3 Seconds (21.0-31.0)
[2019-02-21] MEDS ORDERED: POTASSIUM CHLORIDE / WTR 10 MEQ/100 ML PLCT IV ONE (04:30)
[2019-02-21] MEDS: dilTIAZem HCL 125 MG in DEXTROSE 5% 100 ML IV SCH (06:07)
[2019-02-21] MEDS: carvediloL 6.25 MG TAB PO SCH (08:40)
[2019-02-21] MEDS: ASPIRIN 81 MG ECTAB PO SCH (08:40)
[2019-02-21] MEDS: DOXYCYCLINE HYCLATE 100 MG CAP PO SCH ×2 (08:40→21:01)
[2019-02-21] MEDS: CHOLECALCIFEROL 1,000 UNITS TAB PO SCH (08:40)
[2019-02-21] MEDS: THIAMINE HCL 100 MG TAB PO SCH (08:40)
[2019-02-21] MEDS ORDERED: AMLODIPINE BESYLATE 5 MG TAB PO SCH (09:00)
[2019-02-21 10:40] LABS: Partial Thromboplastin Ratio 4.5
[2019-02-21 10:43] LABS: Partial Thromboplastin Time 122.7 Seconds (21.0-31.0)
--- NOTE | 2019-02-21 11:16 | Cardiology Consultation ---
Date of Consultation February 21, 2019 Assessment & Plan (1) Atrial fibrillation with RVR: (2) Emphysema of lung: (3) Chronic kidney disease (CKD), stage IV (severe): (4) Dehydration: (5) Cardiac pacemaker: (6) Tachy-jacque syndrome: As mentioned, the patient is not a good historian. In addition to treating her pneumonia and hydrating her I would recommend that we start her on amiodarone orally and once she is tolerating this medication then discontinue the diltiazem drip. I will also hold her carvedilol. She had a recent echocardiogram completed as an outpatient and I would not repeat this study. History of Present Illness Attending Physician: Shalom Duque MD History of Present Illness This is an elderly 83-year-old female who is not a good historian. She was admitted after several days of not feeling well and having anorexia. Her admitting chest x-ray is possibly showing a left lower lobe pneumonia. Her white count is not elevated. She has been started on antibiotics. It is uncertain over the past several days if she has been able to take her medications. Her INR on admission was subtherapeutic. On admission she is having atrial flutter/fibrillation with high heart rates and was started on a diltiazem drip. No complaints of shortness of breath or orthopnea. Past medical history: 1.Paroxysmal atrial fibrillation on chronic anticoagulation therapy 2.Mixed valvular disease with echocardiogram September 2016 demonstrating mild aortic stenosis, moderate aortic insufficiency, preserved LV systolic function, mild mitral tricuspid insufficiency. 3. Dual chamber pacemaker insertion secondary to tachybrady syndrome in 01/2018 Allergies Allergy/AdvReac Type Severity Reaction Status Date / Time No Known Allergies Allergy Unverified 02/20/19 15:29 Home Medications Home Medications Medication Instructions Recorded Confirmed Type aspirin 81 mg PO QAM 01/23/18 02/20/19 History cholecalciferol (vitamin D3) 2,000 unit PO QAM 01/23/18 02/20/19 History [Vitamin D3] amlodipine [Norvasc] 5 mg PO QAM #30 tab 01/29/19 02/20/19 Rx carvedilol 6.25 mg PO BID #60 tab 01/29/19 02/20/19 Rx thiamine HCl (vitamin B1) 100 mg/kg PO DAILY 02/20/19 02/20/19 History warfarin [Coumadin] 2 mg PO DAILY 02/20/19 02/20/19 History Patient History Medical History Cardiac pacemaker Chronic kidney disease (CKD), stage IV (severe) HLD (hyperlipidemia) HTN (hypertension) Osteoporosis PAF (paroxysmal atrial fibrillation) pt admitted for elective ppm due to TBS; underwent procedure without any complications. her diltiazem was stopped and she was started on toprol and amiodarone; monitored overnight and discharged home. 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 her diltiazem was stopped and she was started on toprol and amiodarone; monitored overnight and discharged home. Surgical History History of total right hip arthroplasty Family History Other Unknown family medical history Social History Preferred Language: Malay Communication Ability: Effective Mail Technician Required: No Beliefs That Will Affect Care: None marital status: / Current Living Situation: Alone Current Living Situation Comment: In house with friend Other Information That Helps Us Care for You: No Feels Safe at Home: Yes Safety Concerns: Feels Safe At This Time Smoking Status: Never smoker Do You Dip or Chew Tobacco: No ; Second Hand Exposure: No ; Tobacco Cessation Education Requested by Patient: No Hx Alcohol Use: No Hx Substance Use: No Review of Systems Review of Systems: Unobtainable due to cognitive status Physical Exam Physical Exam: General: no acute distress and stated age Head: normocephalic, no masses, lesions, tenderness or abnormalities Eyes: conjunctiva are pink and non-injected, sclera clear Neck: supple, no adenopathy, no bruits, normal jugular venous pulse, no hepatojugular reflux Chest: normal shape and normal respiratory effort Lungs: clear to auscultation and percussion Cardiac Exam: - irregular rate & rhythm, no murmurs gallops or rubs - normal S1, normal S2 Pulses: 2(+) throughout Abdomen: abdomen soft, non-tender, no abnormal masses and no hepatosplenomegaly Musculoskeletal: no gait disturbance, no joint inflammation, no deforming arth ritis Extremities: no edema and no cyanosis Neuro: grossly normal exam Results & Data Vital Signs (Past 12 Hours) Vital Signs Temp Pulse Pulse Resp BP BP Pulse Ox 02/21/19 08:17 37.0 C 65 22 108/74 93 02/21/19 02:57 37.0 C 66 18 135/82 91 02/21/19 01:53 108 H 02/21/19 00:38 140 H 116/73 02/21/19 00:10 120 H Laboratory Results Laboratory Results - last 24 hr 02/20/19 02/20/19 02/20/19 15:15 15:15 15:15 WBC 9.96 RBC 4.79 Hgb 14.8 Hct 45.1 MCV 94.2 MCH 30.9 MCHC 32.8 RDW Std Deviation 52.5 H RDW Coeff of Filiberto 15.3 H Plt Count 229 MPV 9.5 Immature Gran % (Auto) 0.2 Neut % (Auto) 81.8 Lymph % (Auto) 7.3 Russell % (Auto) 10.5 Eos % (Auto) 0.1 Baso % (Auto) 0.1 Immature Gran # (Auto) 0.02 Neut # (Auto) 8.14 H Lymph # (Auto) 0.73 L Russell # (Auto) 1.05 H Eos # (Auto) 0.01 Baso # (Auto) 0.01 PT 11.8 INR 1.2 H APTT PTT Ratio Sodium 137 Potassium 4.1 Chloride 106 Carbon Dioxide 24 Anion Gap 8.0 BUN 23 H Creatinine 1.49 H Est Cr Clr Drug Dosing Not Reportable Est GFR ( Amer) 37.3 Est GFR (Non-Af Amer) 32.1 BUN/Creatinine Ratio 15.2 Glucose 99 Calcium 8.7 Magnesium 2.2 Total Bilirubin 0.8 AST 16 ALT 14 Alkaline Phosphatase 79 Troponin I < 0.015 Total Protein 7.0 Albumin 2.8 L Globulin 4.2 H Albumin/Globulin Ratio 0.7 L TSH Urine Color Urine Appearance Urine pH Ur Specific Leonore Urine Protein Urine Glucose (UA) Urine Ketones Urine Blood Urine Nitrite Urine Bilirubin Urine Urobilinogen Ur Leukocyte Esterase Urine WBC (Auto) Urine RBC (Auto) U Hyaline Cast (Auto) U Epithel Cells (Auto) Urine Bacteria (Auto) Ur Renal Epithelial Cell 0102/20/19 02/21/19 15:15 16:40 01:59 WBC 9.72 RBC 4.86 Hgb 14.9 Hct 44.7 MCV 92.0 MCH 30.7 MCHC 33.3 RDW Std Deviation 51.8 H RDW Coeff of Filiberto 15.4 H Plt Count 227 MPV 9.8 Immature Gran % (Auto) 0.3 Neut % (Auto) 80.9 Lymph % (Auto) 10.2 Russell % (Auto) 8.4 Eos % (Auto) 0.1 Baso % (Auto) 0.1 Immature Gran # (Auto) 0.03 H Neut # (Auto) 7.86 H Lymph # (Auto) 0.99 L Russell # (Auto) 0.82 H Eos # (Auto) 0.01 Baso # (Auto) 0.01 PT INR APTT 37.0 H PTT Ratio 1.4 Sodium Potassium Chloride Carbon Dioxide Anion Gap BUN Creatinine Est Cr Clr Drug Dosing Est GFR ( Amer) Est GFR (Non-Af Amer) BUN/Creatinine Ratio Glucose Calcium Magnesium Total Bilirubin AST ALT Alkaline Phosphatase Troponin I Total Protein Albumin Globulin Albumin/Globulin Ratio TSH Urine Color Dark Yellow Urine Appearance Cloudy A Urine pH 5.0 Ur Specific Leonore 1.017 Urine Protein 1+ H Urine Glucose (UA) Negative Urine Ketones Negative Urine Blood Negative Urine Nitrite Negative Urine Bilirubin Negative Urine Urobilinogen Negative Ur Leukocyte Esterase Trace H Urine WBC (Auto) 10-30 H Urine RBC (Auto) 0-4 U Hyaline Cast (Auto) 10-30 H U Epithel Cells (Auto) >30 H Urine Bacteria (Auto) Negative Ur Renal Epithelial Cell 10-20 H 02/21/19 02/21/19 02/21/19 01:59 01:59 10:07 WBC RBC Hgb Hct MCV MCH MCHC RDW Std Deviation RDW Coeff of Filiberto Plt Count MPV Immature Gran % (Auto) Neut % (Auto) Lymph % (Auto) Russell % (Auto) Eos % (Auto) Baso % (Auto) Immature Gran # (Auto) Neut # (Auto) Lymph # (Auto) Russell # (Auto) Eos # (Auto) Baso # (Auto) PT 13.2 H INR 1.3 H APTT 103.3 H* 122.7 H* PTT Ratio 3.8 4.5 Sodium 136 Potassium 3.9 Chloride 106 Carbon Dioxide 25 Anion Gap 5.0 BUN 26 H Creatinine 1.40 H Est Cr Clr Drug Dosing 18.6 Est GFR ( Amer) 40.2 Est GFR (Non-Af Amer) 34.7 BUN/Creatinine Ratio 18.9 Glucose 132 H Calcium 8.4 L Magnesium 2.0 Total Bilirubin AST ALT Alkaline Phosphatase Troponin I Total Protein Albumin Globulin Albumin/Globulin Ratio TSH 0.729 Urine Color Urine Appearance Urine pH Ur Specific Leonore Urine Protein Urine Glucose (UA) Urine Ketones Urine Blood Urine Nitrite Urine Bilirubin Urine Urobilinogen Ur Leukocyte Esterase Urine WBC (Auto) Urine RBC (Auto) U Hyaline Cast (Auto) U Epithel Cells (Auto) Urine Bacteria (Auto) Ur Renal Epithelial Cell Medications Administered Current Inpatient Medications Amlodipine Besylate ([facility]asc) [facility] Stop: 03/23/19 08:59 Aspirin (Ecotrin Ectab) 81 mg [facility] Stop: 03/23/19 08:59 Last Admin: 02/21/19 08:40 Dose: 81 mg Documented by: Carvedilol (Coreg) 6.25 mg PO BID [facility] Stop: 03/22/19 20:59 Last Admin: 02/21/19 08:40 Dose: 6.25 mg Documented by: Doxycycline Hyclate (Vibramycin) 100 mg PO BID [facility] Stop: 02/25/19 20:59 Last Admin: 02/21/19 08:40 Dose: 100 mg Documented by: Diltiazem HCl 125 mg/ Dextrose 125 mls @ 5 mls/hr IV .Q24H [facility]; Protocol Stop: 03/22/19 19:59 Last Titration: 02/21/19 10:46 Dose: 5 mg/hr, 5 mls/hr Documented by: Heparin Sodium/Dextrose (Heparin Sodium/Dextrose) 25,000 units in 500 mls @ 0 mls/hr IV .Q0M [facility]; Protocol Stop: 03/22/19 19:59 Last Titration: 02/21/19 10:45 Dose: 0 units/hr, 0 mls/hr Documented by: Ceftriaxone Sodium 1,000 mg/ (Dextrose) 50 mls @ 100 mls/hr IV Q24H [facility]; Protocol Stop: 03/03/19 01:59 Last Infusion: 02/21/19 02:30 Dose: Infused Documented by: Metoprolol Tartrate (Lopressor) 2.5 mg IV Q4 PRN PRN Reason: for HR above 120 Stop: 03/22/19 19:48 Last Admin: 02/21/19 00:38 Dose: 2.5 mg Documented by: Olanzapine (Zyprexa) 2.5 mg IM Q4H PRN PRN Reason: Anxiety/Agitation Stop: 03/23/19 01:15 Ondansetron HCl (Zofran) 4 mg IV Q8H PRN PRN Reason: Nausea Stop: 03/22/19 19:48 Thiamine HCl (Vitamin B-1) 100 mg PO DAILY [facility] Stop: 03/23/19 08:59 Last Admin: 02/21/19 08:40 Dose: 100 mg Documented by: Vitamin D (Vitamin D3) 2,000 units [facility] Stop: 03/23/19 08:59 Last Admin: 02/21/19 08:40 Dose: 2,000 units Documented by: Warfarin Sodium (Coumadin) 3 mg PO DAILY@1600 [facility] Stop: 03/23/19 15:59
[2019-02-21] MEDS: AMIODARONE 200 MG TAB PO SCH ×2 (12:12→16:56)
[2019-02-21] MEDS ORDERED: WARFARIN SOD 2 MG TAB PO SCH (16:00)
[2019-02-21] MEDS: WARFARIN SOD 3 MG TAB PO SCH (16:57)
[2019-02-21 17:14] LABS: Partial Thromboplastin Ratio 3.7
[2019-02-21 17:18] LABS: Partial Thromboplastin Time 99.2 Seconds (21.0-31.0)
--- NOTE | 2019-02-21 18:09 | Hospitalist Progress Note ---
Date of Service February 21, 2019 Assessment & Plan (1) Atrial fibrillation with RVR: A. fib RVR H/O tachybradycardia syndrome Subtherapeutic INR on Admission -CXR:Cardiomegaly and cardiac pacemaker. There is no radiographic evidence of congestive failure. Emphysema. Airspace opacities are present at the left lung base. This could represent atelectasis versus pneumonia/aspiration pneumonitis. Clinical correlation will be required and radiographic follow-up to resolution is recommended. -Dehydration could have contributed Received IV fluids Hold Coreg Titrate off of Cardizem drip as able Started on amiodarone Continue IV heparin drip until INR is therapeutic Continue Coumadin--increased to 3 mg today Monitor INR: 1.3 Appreciate cardiology input Lung opacity CXR showed airspace opacities are present at the left lung base. Denies any cough/fever Continue Rocephin, Doxy for now Check procalcitonin levels Abnormal UA Denies any urinary symptoms Urine culture pending On Rocephin for now CKD IV C creatinine at baseline Monitor renal function Avoid nephrotoxic agents as able Tachy-jacque syndrome S/P PPM DVT Px heparin drip until INR is therapeutic Code status Full code Disposition PT OT prior to discharge Subjective Patient is seen and examined at bedside She is oriented to person, month and year States having nausea and dizziness earlier which currently resolved Continues to be in A. fib, rate controlled History unreliable secondary Denies any chest pain, shortness of breath, abdominal pain On Cardizem, heparin drip Review of Systems Review of Systems: All systems reviewed & are unremarkable except as noted in HPI & below Physical Exam Physical Exam: Physical Exam: Vitals signs as noted above General Appearance: Thin, frail, no apparent distress Head: normocephalic, Atraumatic Eyes: normal inspection, EOMI Neck: supple, Trachea midline Respiratory/Chest: Normal breath sounds, CTA, No accessory muscle use Cardiovascular: Irregularly irregular, No murmur Abdomen/GI:Soft, Non tender, Bowel sounds present Extremities/Musculoskelatal:normal inspection, no edema Neurologic/Psych:AAOX2, grossly no focal neurological deficits Skin: normal color, warm Results & Data Vital Signs (Past 12 Hours) Vital Signs Temp Pulse Resp BP BP Pulse Ox 02/21/19 15:39 37.2 C 70 18 96/61 L 90 02/21/19 12:00 36.7 C 75 20 121/80 91 02/21/19 08:17 37.0 C 65 22 108/74 93 Laboratory Results Short CBC 02/21/19 Range/Units 01:59 WBC 9.72 (4.8-10.8) K/uL Hgb 14.9 (12.0-16.0) g/dL Hct 44.7 (37-47) % Plt Count 227 (130-400) K/uL BMP 02/21/19 01:59 Sodium 136 Potassium 3.9 Chloride 106 Carbon Dioxide 25 BUN 26 H Creatinine 1.40 H Glucose 132 H Calcium 8.4 L
[2019-02-21] MEDS: HEPARIN SODIUM/DEXTROSE 25,000 UNITS/500 ML BAG IV SCH (21:04)
[2019-02-22 00:28] LABS: Partial Thromboplastin Ratio 2.8
[2019-02-22 00:32] LABS: Partial Thromboplastin Time 75.4 Seconds (21.0-31.0)
[2019-02-22] MEDS: cefTRIAXone SODIUM 1,000 MG in DEXTROSE 5% 50 ML IV SCH (02:25)
[2019-02-22 07:06] LABS: Hematocrit (blood only) 39.5 % (37-47); Hemoglobin 13.2 g/dL (12.0-16.0); Mean Corpuscular Hemoglobin 30.6 pg (25-34); Mean Corpuscular Hgb Conc 33.4 g/dL (32-36); Mean Corpuscular Volume 91.4 fL (80-100); Mean Platelet Volume 9.9 fL (7.4-10.4); Platelet Count 226 K/uL (130-400); RDW Coefficient of Variation 15.1 % (11.5-14.5); RDW Standard Deviation 50.9 fL (36.4-46.3); Red Blood Count 4.32 M/uL (4.2-5.4); White Blood Count 8.12 K/uL (4.8-10.8)
--- NOTE | 2019-02-22 07:19 | Electrocardiogram Report ---
Test Reason : Blood Pressure : / mmHG Vent. Rate : 076 BPM Atrial Rate : 076 BPM P-R Int : 148 ms QRS Dur : 068 ms QT Int : 400 ms P-R-T Axes : 068 -26 068 degrees QTc Int : 450 ms Normal sinus rhythm Possible Left atrial enlargement Low voltage QRS Inferior infarct (cited on or before 20-FEB-2019) Poor R wave progression, consider anterior CA vs. lead placement vs. LVH Abnormal ECG When compared with ECG of 20-FEB-2019 13:55, (unconfirmed) Sinus rhythm has replaced Atrial fibrillation Vent. rate has decreased BY 73 BPM Confirmed by Evangelist Box ([id number]) on 02/22/2019 7:19:43 AM Referred By: REFERRED SELF Confirmed By:Tamir Box
--- NOTE | 2019-02-22 07:19 | Electrocardiogram Report ---
Test Reason : Blood Pressure : / mmHG Vent. Rate : 149 BPM Atrial Rate : 133 BPM P-R Int : 000 ms QRS Dur : 058 ms QT Int : 250 ms P-R-T Axes : 000 -14 056 degrees QTc Int : 393 ms Atrial fibrillation with rapid ventricular response Abnormal ECG When compared with ECG of 26-JAN-2019 06:49, Atrial fibrillation has replaced Electronic atrial pacemaker Vent. rate has increased BY 80 BPM Confirmed by Evangelist Box ([id number]) on 02/22/2019 7:19:20 AM Referred By: REFERRED SELF Confirmed By:Tamir Box
[2019-02-22 07:26] LABS: INR 1.5 (0.9-1.1); Partial Thromboplastin Ratio 1.9; Prothrombin Time 15.1 Seconds (9.0-12.0)
[2019-02-22 07:31] LABS: Partial Thromboplastin Time 51.1 Seconds (21.0-31.0)
--- NOTE | 2019-02-22 07:34 | Electrocardiogram Report ---
Test Reason : Blood Pressure : / mmHG Vent. Rate : 077 BPM Atrial Rate : 366 BPM P-R Int : 000 ms QRS Dur : 068 ms QT Int : 370 ms P-R-T Axes : 000 -15 074 degrees QTc Int : 418 ms Atrial fibrillation with occasional demand ventricular pacing Low voltage QRS Possible Inferior infarct , age undetermined Abnormal ECG Confirmed by Evangelist Box ([id number]) on 02/22/2019 7:33:40 AM Referred By: REFERRED SELF Confirmed By:Tamir Box
[2019-02-22 07:44] LABS: BUN Creatinine Ratio 15.1 (10-20); Calcium 8.5 mg/dl (8.5-10.1); Creatinine Clr Calc Pharmacy 19.7 ml/min; Est GFR (African American) 43.1; Est GFR (Non-African American) 37.2
[2019-02-22] MEDS: ASPIRIN 81 MG ECTAB PO SCH (08:02)
[2019-02-22] MEDS: AMIODARONE 200 MG TAB PO SCH ×3 (08:02→17:15)
[2019-02-22] MEDS: DOXYCYCLINE HYCLATE 100 MG CAP PO SCH ×2 (08:02→20:54)
[2019-02-22] MEDS: CHOLECALCIFEROL 1,000 UNITS TAB PO SCH (08:02)
[2019-02-22] MEDS: THIAMINE HCL 100 MG TAB PO SCH (08:02)
--- NOTE | 2019-02-22 16:30 | Cardiology Progress Note ---
Date of Service February 22, 2019 Assessment & Plan (1) PAF (paroxysmal atrial fibrillation): Continue heparin bridge, INR 1.5 today, continue Coumadin. Continue loading with amiodarone orally. TSH and LFTs stable this admission on recent check. Subjective Patient sitting comfortably in bed. She is eager for discharge. She is concerned about her dog, but she does have neighbors checking in on her. Telemetry reveals that she converted from atrial fibrillation back to sinus rhythm just after 1600 yesterday 02/21/2019. She is tolerating initiation of amiodarone orally. Review of Systems Review of Systems: All systems reviewed & are unremarkable except as noted in HPI & below Physical Exam Physical Exam: Temp Pulse Resp BP Pulse Ox 36.7 C 68 18 142/80 H 90 02/22/19 15:38 02/22/19 15:38 02/22/19 15:38 02/22/19 15:38 02/22/19 15:38 Constitutional: WD/WN, vitals as above Respiratory: normal respiratory effort, lungs clear to auscultation Cardiovascular: Rate/Rhythm: regular rate Heart Sounds: no murmur Extremities: no edema Gastrointestinal (Abdomen): normal bowel sounds, soft, nontender, no hepatosplenomegaly Neurologic: PERRL, EOMI, accommodation nl, no face palsy, no dysarthria Results & Data Vital Signs (Past 12 Hours) Vital Signs Temp Pulse Resp BP BP Pulse Ox 02/22/19 15:38 36.7 C 68 18 142/80 H 90 02/22/19 12:14 36.9 C 95 H 18 139/81 97 02/22/19 07:00 36.2 C L 69 16 147/84 H 95
[2019-02-22] MEDS: WARFARIN SOD 3 MG TAB PO SCH (17:15)
--- NOTE | 2019-02-22 18:31 | Hospitalist Progress Note ---
Date of Service February 22, 2019 Assessment & Plan (1) Atrial fibrillation with RVR: Felix sims RVR H/O tachybradycardia syndrome Subtherapeutic INR on Admission -CXR:Cardiomegaly and cardiac pacemaker. There is no radiographic evidence of congestive failure. Emphysema. Airspace opacities are present at the left lung base. This could represent atelectasis versus pneumonia/aspiration pneumonitis. Clinical correlation will be required and radiographic follow-up to resolution is recommended. -Dehydration could have contributed Received IV fluids Converted to sinus Hold Coreg Cardizem drip discontinued Continue amiodarone Continue IV heparin drip until INR is therapeutic Continue Coumadin--3 mg today Monitor INR: 1.5 Appreciate cardiology input Lung opacity CXR showed airspace opacities are present at the left lung base. Denies any cough/fever Continue Rocephin, Doxy for now Normal procalcitonin levels Abnormal UA Denies any urinary symptoms Urine culture: Mixed probable skin torey On Rocephin as above CKD IV Creatinine at baseline Monitor renal function Avoid nephrotoxic agents as able Tachy-jacque syndrome S/P PPM DVT Px heparin drip until INR is therapeutic Coumadin Code status Full code Disposition PT OT prior to discharge Case management for discharge planning Subjective Patient is seen and examined at bedside Status back to baseline Patient converted to sinus rhythm States palpitations resolved Offers no other complaints Eager to get discharged Tolerating amiodarone Denies any chest pain, SOB, dizziness, nausea, abdominal pain Review of Systems Review of Systems: All systems reviewed & are unremarkable except as noted in HPI & below Physical Exam Physical Exam: Physical Exam: Vitals signs as noted above General Appearance: Thin, frail, no apparent distress Head: normocephalic, Atraumatic Eyes: normal inspection, EOMI Neck: supple, Trachea midline Respiratory/Chest: Normal breath sounds, CTA, No accessory muscle use Cardiovascular: S1, S2, No murmur Abdomen/GI:Soft, Non tender, Bowel sounds present Extremities/Musculoskelatal:normal inspection, no edema Neurologic/Psych:AAOX2, grossly no focal neurological deficits Skin: normal color, warm Results & Data Vital Signs (Past 12 Hours) Vital Signs Temp Pulse Resp BP BP Pulse Ox 02/22/19 15:38 36.7 C 68 18 142/80 H 90 02/22/19 12:14 36.9 C 95 H 18 139/81 97 02/22/19 07:00 36.2 C L 69 16 147/84 H 95 Laboratory Results Short CBC 02/22/19 Range/Units 06:34 WBC 8.12 (4.8-10.8) K/uL Hgb 13.2 (12.0-16.0) g/dL Hct 39.5 (37-47) % Plt Count 226 (130-400) K/uL BMP 02/22/19 06:34 Sodium 137 Potassium 4.0 Chloride 108 H Carbon Dioxide 23 BUN 20 H Creatinine 1.32 H Glucose 90 Calcium 8.5
[2019-02-23] MEDS: cefTRIAXone SODIUM 1,000 MG in DEXTROSE 5% 50 ML IV SCH (02:34)
[2019-02-23 07:31] LABS: INR 1.8 (0.9-1.1); Partial Thromboplastin Ratio 1.9; Prothrombin Time 18.1 Seconds (9.0-12.0)
[2019-02-23 07:33] LABS: Partial Thromboplastin Time 52.7 Seconds (21.0-31.0)
[2019-02-23] MEDS: AMIODARONE 200 MG TAB PO SCH ×3 (07:48→16:53)
[2019-02-23] MEDS: CHOLECALCIFEROL 1,000 UNITS TAB PO SCH (07:48)
[2019-02-23] MEDS: DOXYCYCLINE HYCLATE 100 MG CAP PO SCH ×2 (07:48→20:40)
[2019-02-23] MEDS: ASPIRIN 81 MG ECTAB PO SCH (07:48)
[2019-02-23] MEDS: THIAMINE HCL 100 MG TAB PO SCH (07:48)
[2019-02-23 07:50] LABS: BUN Creatinine Ratio 15.6 (10-20); Calcium 8.9 mg/dl (8.5-10.1); Creatinine Clr Calc Pharmacy 19.8 ml/min; Est GFR (African American) 43.9; Est GFR (Non-African American) 37.9; Potassium 3.9 mmol/L (3.5-5.1)
[2019-02-23] MEDS: HEPARIN SODIUM/DEXTROSE 25,000 UNITS/500 ML BAG IV SCH (07:50)
--- NOTE | 2019-02-23 13:09 | Electrocardiogram Report ---
Test Reason : Blood Pressure : / mmHG Vent. Rate : 135 BPM Atrial Rate : 288 BPM P-R Int : 000 ms QRS Dur : 074 ms QT Int : 314 ms P-R-T Axes : 000 -02 071 degrees QTc Int : 471 ms Atrial flutter with variable A-V block Nonspecific ST abnormality Abnormal ECG When compared with ECG of 21-FEB-2019 07:30, Nonspecific T wave abnormality no longer evident in Anterolateral leads Confirmed by Vinny Guillaume ([id number]) on 02/23/2019 1:09:23 PM Referred By: REFERRED SELF Confirmed By:Vinny Guillaume
--- NOTE | 2019-02-23 14:12 | Cardiology Progress Note ---
Date of Service February 23, 2019 Assessment & Plan (1) PAF (paroxysmal atrial fibrillation): (2) Tachy-jacque syndrome: Continue oral amiodarone loading for 100 mg p.o. 3 times daily, carvedilol, Coumadin. Her INR is below goal, but it is close, at 1.8. I anticipate her INR is going to continue to increase rapidly given coadministration of amiodarone, due to her generalized frailty, and risk of bleeding, I think it is most prudent to discontinue her heparin drip. We will repeat INR tomorrow. Subjective Patient seen in follow-up. She had been alternating between sinus rhythm and atrial fibrillation overnight last night, and ultimately reverted to atrial fibrillation from 540 this morning until 920 this morning. She is currently back in sinus rhythm. She denies any subjective symptoms of the atrial fibrillation this morning. But she does feel that she is overall improved compared to yesterday. She is a little bit confused, perhaps related to her underlying dementia, with no focal deficits. Review of Systems Review of Systems: All systems reviewed & are unremarkable except as noted in HPI & below Physical Exam Physical Exam: Temp Pulse Resp BP Pulse Ox 37.4 C 76 22 153/93 H 94 02/23/19 12:14 02/23/19 12:14 02/23/19 12:14 02/23/19 12:14 02/23/19 12:14 Constitutional: WD/WN, vitals as above Respiratory: normal respiratory effort, lungs clear to auscultation Cardiovascular: RRR, no murmur, no edema Gastrointestinal (Abdomen): normal bowel sounds, soft, nontender, no hepatosplenomegaly Neurologic: PERRL, EOMI, accommodation nl, no face palsy, no dysarthria Results & Data Vital Signs (Past 12 Hours) Vital Signs Temp Pulse Resp BP BP Pulse Ox 02/23/19 12:14 37.4 C 76 22 153/93 H 94 02/23/19 06:53 36.9 C 132 H 16 150/92 H 93 02/23/19 03:35 37.1 C 68 17 164/82 H 94
--- NOTE | 2019-02-23 16:23 | Hospitalist Progress Note ---
Date of Service February 23, 2019 Assessment & Plan (1) Atrial fibrillation with RVR: Felix sims RVR H/O tachybradycardia syndrome Subtherapeutic INR on Admission -CXR:Cardiomegaly and cardiac pacemaker. There is no radiographic evidence of congestive failure. Emphysema. Airspace opacities are present at the left lung base. This could represent atelectasis versus pneumonia/aspiration pneumonitis. Clinical correlation will be required and radiographic follow-up to resolution is recommended. -Dehydration could have contributed Received IV fluids Converted to sinus Coreg; Cardizem drip discontinued Continue amiodarone IV heparin drip discontinued Continue Coumadin 3 mg today Monitor INR: 1.8 Appreciate cardiology input Lung opacity CXR showed airspace opacities are present at the left lung base. Denies any cough/fever Continue Rocephin, Doxy Day 3/5 Normal procalcitonin levels Delirium Reorient frequently Could have underlying dementia Abnormal UA Denies any urinary symptoms Urine culture: Mixed probable skin torey On Rocephin as above CKD IV Creatinine at baseline Monitor renal function Avoid nephrotoxic agents as able Tachy-jacque syndrome S/P PPM DVT Px On Coumadin Code status Full code Disposition PT OT prior to discharge Case management for discharge planning Subjective Patient is seen and examined at bedside In and out of Felix sims Intermittently confused--likely delirium No new complaints Denies any chest pain, SOB, dizziness, nausea, abdominal pain Patient's friend at bedside Review of Systems Review of Systems: All systems reviewed & are unremarkable except as noted in HPI & below Physical Exam Physical Exam: Physical Exam: Vitals signs as noted above General Appearance: Thin, frail, no apparent distress Head: normocephalic, Atraumatic Eyes: normal inspection, EOMI Neck: supple, Trachea midline Respiratory/Chest: Normal breath sounds, CTA, No accessory muscle use Cardiovascular: Irregularly irregular, No murmur Abdomen/GI:Soft, Non tender, Bowel sounds present Extremities/Musculoskelatal:normal inspection, no edema Neurologic/Psych:AAOX2, grossly no focal neurological deficits Skin: normal color, warm Results & Data Vital Signs (Past 12 Hours) Vital Signs Temp Pulse Resp BP BP Pulse Ox 02/23/19 15:56 37.0 C 81 18 114/66 96 02/23/19 12:14 37.4 C 76 22 153/93 H 94 02/23/19 06:53 36.9 C 132 H 16 150/92 H 93 Laboratory Results [facility] 02/23/19 06:53 Sodium 140 Potassium 3.9 Chloride 108 H Carbon Dioxide 25 BUN 20 H Creatinine 1.30 H Glucose 91 Calcium 8.9
[2019-02-23] MEDS: WARFARIN SOD 3 MG TAB PO SCH (16:52)
[2019-02-23] MEDS ORDERED: AMLODIPINE BESYLATE 5 MG TAB PO ONE (23:38)
[2019-02-24] MEDS: OLANZapine 10 MG/2.1 ML SDV IM PRN (00:35)
[2019-02-24] MEDS: cefTRIAXone SODIUM 1,000 MG in DEXTROSE 5% 50 ML IV SCH (02:23)
[2019-02-24 07:26] LABS: INR 2.5 (0.9-1.1)
[2019-02-24 07:30] LABS: Partial Thromboplastin Time 54.1 Seconds (21.0-31.0)
[2019-02-24 07:39] LABS: BUN Creatinine Ratio 15.4 (10-20); Calcium 8.9 mg/dl (8.5-10.1); Creatinine Clr Calc Pharmacy 20.8 ml/min; Est GFR (African American) 45.6; Est GFR (Non-African American) 39.4
[2019-02-24] MEDS: THIAMINE HCL 100 MG TAB PO SCH (09:02)
[2019-02-24] MEDS: ASPIRIN 81 MG ECTAB PO SCH (09:02)
[2019-02-24] MEDS: AMIODARONE 200 MG TAB PO SCH ×3 (09:02→17:02)
[2019-02-24] MEDS: DOXYCYCLINE HYCLATE 100 MG CAP PO SCH ×2 (09:02→19:43)
[2019-02-24] MEDS: CHOLECALCIFEROL 1,000 UNITS TAB PO SCH (09:03)
--- NOTE | 2019-02-24 16:44 | Cardiology Progress Note ---
Date of Service February 24, 2019 Assessment & Plan (1) PAF (paroxysmal atrial fibrillation): (2) Tachy-jacque syndrome: (3) Cardiac pacemaker: INR therapeutic today 02/24/2019 and 2.5. Continue oral amiodarone 400 mg 3 times daily. Discontinue carvedilol, and transition to metoprolol tartrate 50 mg twice daily. Continue current dose of Coumadin. Possible discharge tomorrow. Subjective Feels well now, she felt a little bit poorly this morning, is difficult to determine if her symptoms when she felt poorly were associated with the atrial fibrillation noted overnight last night and first and this morning. She spontaneously converted back to sinus rhythm at around 930 this morning 02/24/2019, and on telemetry over the last 48 hours she has been in and out of atrial fibrillation several times but is mostly been in sinus rhythm. Review of Systems Review of Systems: All systems reviewed & are unremarkable except as noted in HPI & below Physical Exam Physical Exam: Temp Pulse Resp BP Pulse Ox 36.9 C 94 H 18 145/79 H 94 02/24/19 15:40 02/24/19 15:40 02/24/19 15:40 02/24/19 15:40 02/24/19 15:40 Constitutional: Frail in appearance, cachectic Respiratory: normal respiratory effort, lungs clear to auscultation Cardiovascular: RRR, no murmur, no edema Gastrointestinal (Abdomen): normal bowel sounds, soft, nontender, no hepatosplenomegaly Results & Data Vital Signs (Past 12 Hours) Vital Signs Temp Pulse Pulse Pulse Resp BP BP 02/24/19 15:40 36.9 C 94 H 18 145/79 H 02/24/19 13:40 02/24/19 11:11 36.9 C 71 18 114/73 02/24/19 07:55 74 02/24/19 07:51 37.2 C 65 20 137/72 Pulse Ox Pulse Ox 02/24/19 15:40 94 02/24/19 13:40 94 02/24/19 11:11 95 02/24/19 07:55 02/24/19 07:51 92
[2019-02-24] MEDS: WARFARIN SOD 3 MG TAB PO SCH (17:01)
--- NOTE | 2019-02-24 18:50 | Hospitalist Progress Note ---
Date of Service February 24, 2019 Assessment & Plan (1) Atrial fibrillation with RVR: Felix bethany RVR H/O tachybradycardia syndrome Subtherapeutic INR on Admission -CXR:Cardiomegaly and cardiac pacemaker. There is no radiographic evidence of congestive failure. Emphysema. Airspace opacities are present at the left lung base. This could represent atelectasis versus pneumonia/aspiration pneumonitis. Clinical correlation will be required and radiographic follow-up to resolution is recommended. -Dehydration could have contributed Received IV fluids Cardizem drip discontinued Continue amiodarone 400 mg 3 times daily Added metoprolol 25 mg twice daily, Cardizem 30 mg daily IV heparin drip discontinued Continue Coumadin--adjust dose as needed Monitor INR: 2.5 Appreciate cardiology input Lung opacity CXR showed airspace opacities are present at the left lung base. Denies any cough/fever Continue Rocephin, Doxy Day 4/ Normal procalcitonin levels Denies any respiratory symptoms Delirium--seems to be resolved Reorient frequently Could have underlying dementia Abnormal UA Denies any urinary symptoms Urine culture: Mixed probable skin torey On Rocephin as above CKD IV Creatinine at baseline Monitor renal function Avoid nephrotoxic agents as able Tachy-jacque syndrome S/P PPM DVT Px On Coumadin Code status Full code Disposition Needs SNF placement Case management for discharge planning Subjective Patient is seen and examined at bedside States feeling tired Denies chest pain, palpitations, SOB, dizziness, nausea INR is therapeutic today Offers no other complaints Review of Systems Review of Systems: All systems reviewed & are unremarkable except as noted in HPI & below Physical Exam Physical Exam: Physical Exam: Vitals signs as noted above General Appearance: Thin, frail, no apparent distress Head: normocephalic, Atraumatic Eyes: normal inspection, EOMI Neck: supple, Trachea midline Respiratory/Chest: Normal breath sounds, CTA, No accessory muscle use Cardiovascular: Irregularly irregular, No murmur Abdomen/GI:Soft, Non tender, Bowel sounds present Extremities/Musculoskelatal:normal inspection, no edema Neurologic/Psych:AAOX2, grossly no focal neurological deficits Skin: normal color, warm Results & Data Vital Signs (Past 12 Hours) Vital Signs Temp Pulse Pulse Pulse Resp BP BP 02/24/19 17:51 76 02/24/19 15:40 36.9 C 94 H 18 145/79 H 02/24/19 13:40 02/24/19 11:11 36.9 C 71 18 114/73 02/24/19 07:55 74 02/24/19 07:51 37.2 C 65 20 137/72 Pulse Ox Pulse Ox 02/24/19 17:51 02/24/19 15:40 94 02/24/19 13:40 94 02/24/19 11:11 95 02/24/19 07:55 02/24/19 07:51 92 Laboratory Results [facility] 02/24/19 06:36 Sodium 140 Potassium 4.0 Chloride 107 Carbon Dioxide 28 BUN 19 H Creatinine 1.26 H Glucose 87 Calcium 8.9
[2019-02-24] MEDS: dilTIAZem HCL 30 MG TAB PO SCH (19:44)
[2019-02-24] MEDS: METOPROLOL TARTRATE 25 MG TAB PO SCH (19:44)
[2019-02-25] MEDS: cefTRIAXone SODIUM 1,000 MG in DEXTROSE 5% 50 ML IV SCH (01:18)
[2019-02-25] MEDS: OLANZapine 10 MG/2.1 ML SDV IM PRN ×3 (01:18→20:48)
[2019-02-25 07:47] LABS: Partial Thromboplastin Ratio 2.3; Prothrombin Time 35.8 Seconds (9.0-12.0)
[2019-02-25] MEDS: AMIODARONE 200 MG TAB PO SCH ×3 (07:49→16:30)
[2019-02-25] MEDS: METOPROLOL TARTRATE 25 MG TAB PO SCH ×2 (07:50→19:45)
[2019-02-25] MEDS: dilTIAZem HCL 30 MG TAB PO SCH ×3 (07:50→19:53)
[2019-02-25] MEDS: DOXYCYCLINE HYCLATE 100 MG CAP PO SCH (07:50)
[2019-02-25] MEDS: ASPIRIN 81 MG ECTAB PO SCH (07:51)
[2019-02-25] MEDS: THIAMINE HCL 100 MG TAB PO SCH (07:51)
[2019-02-25] MEDS: CHOLECALCIFEROL 1,000 UNITS TAB PO SCH (07:51)
[2019-02-25 08:02] LABS: BUN Creatinine Ratio 19.2 (10-20); Creatinine Clr Calc Pharmacy 18.7 ml/min; Est GFR (African American) 39.8; Est GFR (Non-African American) 34.4; Potassium 3.9 mmol/L (3.5-5.1)
[2019-02-25 08:11] LABS: INR 3.8 (0.9-1.1)
[2019-02-25] MEDS ORDERED: AMLODIPINE BESYLATE 5 MG TAB PO SCH (09:00)
--- NOTE | 2019-02-25 20:54 | Hospitalist Progress Note ---
Date of Service February 25, 2019 Assessment & Plan (1) Atrial fibrillation with RVR: Felix bethany RVR H/O tachybradycardia syndrome Subtherapeutic INR on Admission -CXR:Cardiomegaly and cardiac pacemaker. There is no radiographic evidence of congestive failure. Emphysema. Airspace opacities are present at the left lung base. This could represent atelectasis versus pneumonia/aspiration pneumonitis. Clinical correlation will be required and radiographic follow-up to resolution is recommended. -Dehydration could have contributed Received IV fluids Cardizem drip discontinued Continue amiodarone 400 mg 3 times daily Added metoprolol 25 mg twice daily, Cardizem 30 mg daily IV heparin drip discontinued Coumadin held today due to supratherapeutic INR Monitor INR: 3.8 Appreciate cardiology input Lung opacity CXR showed airspace opacities are present at the left lung base. Denies any cough/fever Continue Rocephin, Doxy Day / Normal procalcitonin levels Denies any respiratory symptoms Delirium--seems to be resolved Reorient frequently Could have underlying dementia Abnormal UA Denies any urinary symptoms Urine culture: Mixed probable skin torey Completed Rocephin CKD IV Creatinine at baseline Monitor renal function Avoid nephrotoxic agents as able Tachy-jacque syndrome S/P PPM DVT Px On Coumadin Code status Full code Disposition Needs SNF placement Case management for discharge planning Subjective Patient is seen and examined at bedside No new complaints On and off confused Denies chest pain, palpitations, SOB, dizziness, nausea INR is supra therapeutic, no bleeding issues Review of Systems Review of Systems: All systems reviewed & are unremarkable except as noted in HPI & below Physical Exam Physical Exam: Physical Exam: Vitals signs as noted above General Appearance: Thin, frail, no apparent distress Head: normocephalic, Atraumatic Eyes: normal inspection, EOMI Neck: supple, Trachea midline Respiratory/Chest: Normal breath sounds, CTA, No accessory muscle use Cardiovascular: S1, S2, No murmur Abdomen/GI:Soft, Non tender, Bowel sounds present Extremities/Musculoskelatal:normal inspection, no edema Neurologic/Psych:AAOX2, grossly no focal neurological deficits, confused at times Skin: normal color, warm Results & Data Vital Signs (Past 12 Hours) Vital Signs Temp Pulse Resp BP Pulse Ox 02/25/19 16:28 36.5 C 80 18 163/81 H 93 02/25/19 11:44 36.9 C 72 21 158/88 H 94 Laboratory Results [facility] 02/25/19 06:53 Sodium 140 Potassium 3.9 Chloride 106 Carbon Dioxide 28 BUN 27 H Creatinine 1.41 H Glucose 86 Calcium 9.0
[2019-02-26] MEDS: cefTRIAXone SODIUM 1,000 MG in DEXTROSE 5% 50 ML IV SCH (03:33)
[2019-02-26 07:37] LABS: INR 4.1 (0.9-1.1)
[2019-02-26 07:41] LABS: BUN Creatinine Ratio 20.7 (10-20); Calcium 9.2 mg/dl (8.5-10.1); Creatinine Clr Calc Pharmacy 17.2 ml/min; Est GFR (African American) 36.1; Est GFR (Non-African American) 31.1; Potassium 4.1 mmol/L (3.5-5.1)
[2019-02-26] MEDS: AMIODARONE 200 MG TAB PO SCH ×3 (10:08→17:11)
[2019-02-26] MEDS: dilTIAZem HCL 30 MG TAB PO SCH ×3 (10:08→21:40)
[2019-02-26] MEDS: ASPIRIN 81 MG ECTAB PO SCH (10:08)
[2019-02-26] MEDS: CHOLECALCIFEROL 1,000 UNITS TAB PO SCH (10:09)
[2019-02-26] MEDS: METOPROLOL TARTRATE 25 MG TAB PO SCH ×2 (10:09→21:40)
[2019-02-26] MEDS: THIAMINE HCL 100 MG TAB PO SCH (10:09)
--- NOTE | 2019-02-26 12:15 | Hospitalist Progress Note ---
Date of Service February 26, 2019 Assessment & Plan (1) Atrial fibrillation with RVR: Felix bethany RVR H/O tachybradycardia syndrome Subtherapeutic INR on Admission -CXR:Cardiomegaly and cardiac pacemaker. There is no radiographic evidence of congestive failure. Emphysema. Airspace opacities are present at the left lung base. This could represent atelectasis versus pneumonia/aspiration pneumonitis. Clinical correlation will be required and radiographic follow-up to resolution is recommended. Dehydration could have contributed Received IV fluids Cardizem drip discontinued Continue amiodarone 400 mg 3 times daily Added metoprolol 25 mg twice daily, Cardizem 30 mg daily IV heparin drip discontinued Continue to hold Coumadin due to supratherapeutic INR Monitor INR: 4.1 Appreciate cardiology input No acute bleeding issues Consider restarting Coumadin at low dose when INR is therapeutic Lung opacity CXR showed airspace opacities are present at the left lung base. Denies any cough/fever Completed Rocephin, Doxy Day / Normal procalcitonin levels Denies any respiratory symptoms Delirium--seems to be resolved Agitation Reorient frequently Could have underlying dementia Consulted psychiatry for recommendations Abnormal UA Denies any urinary symptoms Urine culture: Mixed probable skin torey Completed Rocephin CKD IV Creatinine at baseline Monitor renal function Avoid nephrotoxic agents as able Tachy-jacque syndrome S/P PPM DVT Px INR supratherapeutic Coumadin on hold Code status Full code Disposition Needs SNF placement Case management for discharge planning Subjective Patient is seen and examined at bedside Patient is currently very drowsy but easily awakens Received Zyprexa overnight for agitation Resting in bed comfortably No acute bleeding issues, INR supratherapeutic Discussed with psychiatry today Unable to provide much history secondary to drowsiness. Review of Systems Review of Systems: Other Physical Exam Physical Exam: Physical Exam: Vitals signs as noted above General Appearance: Thin, frail, no apparent distress, Drowsy Head: normocephalic, Atraumatic Eyes: normal inspection, EOMI Neck: supple, Trachea midline Respiratory/Chest: Normal breath sounds, CTA, No accessory muscle use Cardiovascular: S1, S2, No murmur Abdomen/GI:Soft, Non tender, Bowel sounds present Extremities/Musculoskelatal:normal inspection, no edema Neurologic/Psych:grossly no focal neurological deficits, drowsy Skin: normal color, warm Results & Data Vital Signs (Past 12 Hours) Vital Signs Temp Pulse Pulse Resp BP BP Pulse Ox 02/26/19 07:31 65 02/26/19 07:14 36.2 C L 70 18 154/87 H 93 02/26/19 03:24 36.6 C 70 20 187/99 H 94
--- NOTE | 2019-02-26 13:03 | Psychiatric Consultation ---
Date of Consultation February 26, 2019 Impression / Recommendations Impression 83-year-old female admitted medically on 02/20/2019 after presenting to the ED with palpitations. Pt is being treated medically for A. fib with RVR. Progress notes beginning 02/23/2019 noted episodic agitation and confusion. Initially believed to be related to delirium, the family is now questioning an underlying dementia. Pt did receive 2 doses (5mg total) of olanzapine IM last evening in order to manage agitation. She had received 2 dose piece presser on 02/24/2019 as well. Pt is too sedated at time of initial encounter, and later admitted to limited recall of events of confusion. She denies having family we can obtain information from and declines to sign a release for 2 friends who were visiting as we were ending conversation. Will have psychiatric nurse liaison attempt to reach out to family/supports as permitted to gather collateral information. Given the continued waxing and waning presentation of patient's confusion, it remains quite possible that she is continuing to experience symptoms of delirium. Although patient is rather lucid during our second encounter, she does demonstrate some difficulty with remote memory and delayed recall. It is hardly appropriate to make a determination of dementia when there is reports to suggest she is not at her baseline cognitive functioning. Therefore, it may be most appropriate to complete a neurologic work-up to evaluate for underlying dementia on an outpatient basis. In the interim, psychiatric consultation is requested to make medication recommendations for episodic demonstration of agitated behavior. Delirium protocol would suggest patient should be frequently reoriented to person, place, time, event, and intervention to be performed. Pt should be permitted to utilize corrective lenses and assistive hearing devices when appropriate. Permit use of familiar comfort items when appropriate as well. Keep patient awake and active during the day, with light on in room. Conversely, dark room should be maintained at night with sleep being encouraged. Use of prn medications should be limited to behavioral concerns that threaten the safety of the patient or staff, in order to prevent worsening of confusion and excessive sedation. If patient is tolerates the offering of PO medications, would suggest utilizing quetiapine 25mg q4h prn agitation. Olanzapine IM seems an appropriate choice should safety concerns be acute and require immediate medical intervention. If sedation remains a concern, available options would be to either reduce the dosage of olanzapine or utilize a less potent agent. If repeat dosing of IM olanzapine is necessary, could consider providing a 1.25 mg dose to reduce sedation. If patient is able to cooperate with p.o. medications, this route is generally preferred and would suggest quetiapine dosing as above. Again, utilization of antipsychotic medications for management of agitation should be used as a last resort and only if patient is demonstrating imminent risk of harm to self or staff. We will continue to follow patient during the remainder of her hospitalization and provide additional recommendations as they are available. Dr. Sandra Palomino was directly involved in review and discussion of the patient's case and participated in medical decision making regarding treatment recommendations. RECOMMENDATIONS: 02/26 - If tolerating offer for p.o. medications, would suggest using 25 mg of quetiapine every 4 hours only as needed for acute agitation. - IM olanzapine seems appropriate should safety concerns escalate to need for IM dosing - If patient is requiring repeat doses for severe agitation, could consider reducing subsequent doses to 1.25mg IM - At this time, scheduled antipsychotic medications are not indicated, as patient's presentation seems to be most consistent with continue delirium - If scheduled antipsychotic medications should be recommended, patient and/or substitute decision maker would need to be counseled on black box warning regarding use of atypical antipsychotic medications being linked to increased risk of mortality in the elderly population, especially with question of underlying dementia. Ideally, patient's confusion/agitation will continue to resolve as medical conditions stabilize and prn medications will no longer be required - Again, antipsychotic medications should be reserved only as a last resort for management of acute agitation, and should be offered only if patient is demonstrating imminent risk of harm to self or staff Psych History Identifying Data 83-year-old female admitted medically on 02/20/2019 after presenting to the ED with reports of palpitations, diagnosed with A. fib with RVR. It has been reported that the patient has been demonstrating intermittent confusion and agitation - etiology is questioned to be delirium versus underlying dementia. She has reportedly been given 4 doses of IM olanzapine to manage episodes of agitation. Psychiatric consultation is requested in order to offer medication recommendations for agitation. History of Present Illness Donny Mccurdy is an 83-year-old female admitted medically on 02/20/2019 for A. fib with RVR, after presenting to the ED with palpitations. Hospital documentation from 02/23/2019 suggests intermittent confusion, presumed to be related to delirium. It is stated that family has been concerned about the presence of underlying dementia. Occasionally, patient has been reported to demonstrate baseline functioning, though it also appears that she has been displaying some restlessness/agitation periodically as well. Pt has received 4 doses of IM olanzapine 2.5mg - 2 doses in the early hours of 02/24/2019, and 2 doses again the evening of 02/25/2019. It is reported that the patient has been sedated most of the day today, questioning correlation to olanzapine dosing. Psychiatric consultation was requested to offer medication recommendations for agitation/restlessness. Patient was seen on psychiatric consult service by this provider and Helen Maria PA-C - observing psychiatric provider. Patient was observed to be sleeping, but was easily aroused by verbal and tactile stimuli. Unfortunately, patient was not able to maintain attention for a decent period of time before drifting back to sleep. Pt verbalized awareness of this provider's presence in the room, but is clearly unable to participate in a meaningful interview at this time. She does indicate that she is feeling tired, but otherwise the patient's speech is unintelligible. Primary attempts will be made to gather collateral information from staff and patient's family/supports until patient is able to participate more appropriately in an interview. Attempt was made to revisit patient later in the afternoon, after it was reported the patient's family was requesting to speak with a psychiatric provider. Again, patient did not have visitors in her room, and patient was found to be asleep. On this occasion, patient awoke rather easily to verbal stimuli and actually maintained attention for rather decent conversation. Patient admits that she is feeling "pretty good" today, but admits to feeling tired. She states "well, I have not slept in the past few days." Patient begins providing information related to the of a friend's daughter, stating the is tomorrow. It is unclear if these reports are valid, as there are no supports present to confirm the statements. Patient does indicate that her mood has been "half and half" since her hospitalization, stating that she is somewhat scared and that this is only her second hospitalization in her life. She denies significant mood or anxiety concerns prior to her hospital admission, and states that any current symptoms are manageable and reasonable for the circumstances. Patient denies any previous psychiatric history, and states she has never been treated for depression or anxiety in the past. She denies history of hallucinations or paranoia. As patient appeared rather lucid overall, this provider took the opportunity to update her about recent episodes of confusion. Patient states that she does not recall the specific events, and denies knowledge of confusion or hallucinations during her hospitalization. Patient was informed that medications have been utilized to keep her calm and comfortable during these episodes, and that this may be contributing to her fatigue today. As this provider attempted to begin conversation about these medications, patient's friends "Clarence" entered the room. Patient was able to address both individuals by name; however, does state that they are only friends. Patient denies having a daughter. Visitors did not contest that they are not family. It does appear that they had been visiting the patient earlier in the afternoon, and do state "all year with psychiatry, our questions were for the other service." Patient was offered to sign an SAUD for the friends in order to allow us to update them pertinent information and obtain information from them. Patient declines to sign an SAUD at this time. She denied other specific needs from our service at this time. She was informed we will continue to follow her case observing for continued episodes of confusion. Past Psychiatric History Previous Psych History: No known psychiatric history. No problems on problem list suggestive of psychiatric diagnoses. Past Medication Trials: Patient is not currently prescribed any psychotropic medications. Denies history of psychotropic medications in the past. Allergies Allergy/AdvReac Type Severity Reaction Status Date / Time No Known Allergies Allergy Unverified 02/20/19 15:29 Home Medications Home Medications Medication Instructions Recorded Confirmed Type aspirin 81 mg PO QAM 01/23/18 02/20/19 History cholecalciferol (vitamin D3) 2,000 unit PO QAM 01/23/18 02/20/19 History [Vitamin D3] amlodipine [Norvasc] 5 mg PO QAM #30 tab 01/29/19 02/20/19 Rx carvedilol 6.25 mg PO BID #60 tab 01/29/19 02/20/19 Rx thiamine HCl (vitamin B1) 100 mg/kg PO DAILY 02/20/19 02/20/19 History warfarin [Coumadin] 2 mg PO DAILY 02/20/19 02/20/19 History Patient History Medical History Cardiac pacemaker Chronic kidney disease (CKD), stage IV (severe) HLD (hyperlipidemia) HTN (hypertension) Osteoporosis PAF (paroxysmal atrial fibrillation) pt admitted for elective ppm due to TBS; underwent procedure without any complications. her diltiazem was stopped and she was started on toprol and amiodarone; monitored overnight and discharged home. 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 her diltiazem was stopped and she was started on toprol and amiodarone; monitored overnight and discharged home. Surgical History History of total right hip arthroplasty Family History Other Unknown family medical history Social History Preferred Language: [place] Communication Ability: Effective Hat Ironer Required: No marital status: Single Current Living Situation: Alone Current Living Situation Comment: In house with friend Other Information That Helps Us Care for You: No Feels Safe at Home: Yes Safety Concerns: Feels Safe At This Time Smoking Status: Never smoker Do You Dip or Chew Tobacco: No ; Second Hand Exposure: No ; Tobacco Cessation Education Requested by Patient: No Hx Alcohol Use: No Hx Substance Use: No Physical Exam 2 Psychiatric: Orientation: + not alert (aroused by verbal/tactile stimuli, but unable to participate in interview) Apperance: appropriately dressed (in hospital gown ) Underweight-appearing female, resting comfortably in bed, snoring. Pt is petite, appropriately dressed, and mildly disheveled. Notable hematoma on upper lip. Eye Contact: + poor eye contact (unable to be adequately aroused; sleeping) Motor Behavior: no abnormal motor movements (patient is asleep in bed) Vital Signs (Past 24 Hours): Last Vital Signs Temp 36.3 C L 02/26/19 11:44 Pulse 67 02/26/19 11:44 Resp 18 02/26/19 11:44 BP 139/79 02/26/19 11:44 Pulse Ox 94 02/26/19 11:44 Review of Systems Patient was initially too sedated to participate in productive interview. She does not verbalize any physical complaints aside from feeling tired. ROS Obtained during second encounter: Constitutional: reports continued fatigue Cardiovascular: denied Respiratory: denied Gastrointestinal: denied Neurological: denied Psychiatric: denies symptoms other than stated above Total of at least 10 systems reviewed, pertinent positives as above and in HPI. Results & Data Medications Administered Amiodarone HCl (Cordarone) 400 mg PO TIDM [facility] Stop: 03/23/19 11:59 Last Admin: 02/26/19 11:49 Dose: Not Given Documented by: [id number] Admin: 02/26/19 10:08 Dose: Not Given Documented by: [id number] Admin: 02/25/19 16:30 Dose: 400 mg Documented by: [id number] Admin: 02/25/19 12:54 Dose: 400 mg Documented by: [id number] Admin: 02/25/19 07:49 Dose: 400 mg Documented by: [id number] Admin: 02/24/19 17:02 Dose: 400 mg Documented by: [id number] Admin: 02/24/19 11:52 Dose: 400 mg Documented by: [id number] Admin: 02/24/19 09:02 Dose: 400 mg Documented by: [id number] Admin: 02/23/19 16:53 Dose: 400 mg Documented by: [id number] Admin: 02/23/19 12:13 Dose: 400 mg Documented by: [id number] Admin: 02/23/19 07:48 Dose: 400 mg Documented by: [id number] Admin: 02/22/19 17:15 Dose: 400 mg Documented by: [id number] Admin: 02/22/19 11:56 Dose: 400 mg Documented by: [id number] Admin: 02/22/19 08:02 Dose: 400 mg Documented by: [id number] Admin: 02/21/19 16:56 Dose: 400 mg Documented by: [id number] Admin: 02/21/19 12:12 Dose: 400 mg Documented by: [id number] Aspirin (Ecotrin Ectab) 81 mg PO QAM [facility] Stop: 03/23/19 08:59 Last Admin: 02/26/19 10:08 Dose: Not Given Documented by: [id number] Admin: 02/25/19 07:51 Dose: 81 mg Documented by: [id number] Admin: 02/24/19 09:02 Dose: 81 mg Documented by: [id number] Admin: 02/23/19 07:48 Dose: 81 mg Documented by: [id number] Admin: 02/22/19 08:02 Dose: 81 mg Documented by: [id number] Admin: 02/21/19 08:40 Dose: 81 mg Documented by: [id number] Diltiazem HCl (Cardizem) 30 mg PO TID [facility] Stop: 03/26/19 20:59 Last Admin: 02/26/19 10:08 Dose: Not Given Documented by: [id number] Admin: 02/25/19 19:53 Dose: 30 mg Documented by: [id number] Admin: 02/25/19 12:55 Dose: 30 mg Documented by: [id number] Admin: 02/25/19 07:50 Dose: 30 mg Documented by: [id number] Admin: 02/24/19 19:44 Dose: 30 mg Documented by: [id number] Metoprolol Tartrate (Lopressor) 2.5 mg IV Q4 PRN PRN Reason: for HR above 120 Stop: 03/22/19 19:48 Last Admin: 02/21/19 00:38 Dose: 2.5 mg Documented by: [id number] Metoprolol Tartrate (Lopressor) 25 mg PO BID [facility] Stop: 03/26/19 20:59 Last Admin: 02/26/19 10:09 Dose: Not Given Documented by: [id number] Admin: 02/25/19 19:45 Dose: 25 mg Documented by: [id number] Admin: 02/25/19 07:50 Dose: 25 mg Documented by: [id number] Admin: 02/24/19 19:44 Dose: 25 mg Documented by: [id number] Thiamine HCl (Vitamin B-1) 100 mg PO DAILY [facility] Stop: 03/23/19 08:59 Last Admin: 02/26/19 10:09 Dose: Not Given Documented by: [id number] Admin: 02/25/19 07:51 Dose: 100 mg Documented by: [id number] Admin: 02/24/19 09:02 Dose: 100 mg Documented by: [id number] Admin: 02/23/19 07:48 Dose: 100 mg Documented by: [id number] Admin: 02/22/19 08:02 Dose: 100 mg Documented by: [id number] Admin: 02/21/19 08:40 Dose: 100 mg Documented by: [id number] Vitamin D (Vitamin D3) 2,000 units PO QAM [facility] Stop: 03/23/19 08:59 Last Admin: 02/26/19 10:09 Dose: Not Given Documented by: [id number] Admin: 02/25/19 07:51 Dose: 2,000 units Documented by: [id number] Admin: 02/24/19 09:03 Dose: 2,000 units Documented by: [id number] Admin: 02/23/19 07:48 Dose: 2,000 units Documented by: [id number] Admin: 02/22/19 08:02 Dose: 2,000 units Documented by: [id number] Admin: 02/21/19 08:40 Dose: 2,000 units Documented by: [id number] Coding Level of Care Code 26073 U Intl Hosp Care Lvl 1
[2019-02-27 07:15] LABS: Prothrombin Time 33.8 Seconds (9.0-12.0)
[2019-02-27 07:19] LABS: INR 3.6 (0.9-1.1)
[2019-02-27 07:29] LABS: BUN Creatinine Ratio 21.9 (10-20); Calcium 9.4 mg/dl (8.5-10.1); Creatinine Clr Calc Pharmacy 14.2 ml/min; Est GFR (African American) 31.1; Est GFR (Non-African American) 26.8; Potassium 4.4 mmol/L (3.5-5.1)
[2019-02-27] MEDS: CHOLECALCIFEROL 1,000 UNITS TAB PO SCH (08:04)
[2019-02-27] MEDS: dilTIAZem HCL 30 MG TAB PO SCH ×3 (08:04→20:57)
[2019-02-27] MEDS: METOPROLOL TARTRATE 25 MG TAB PO SCH ×2 (08:04→20:57)
[2019-02-27] MEDS: ASPIRIN 81 MG ECTAB PO SCH (08:05)
[2019-02-27] MEDS: AMIODARONE 200 MG TAB PO SCH ×3 (08:05→18:29)
[2019-02-27] MEDS: THIAMINE HCL 100 MG TAB PO SCH (08:05)
--- NOTE | 2019-02-27 17:38 | Hospitalist Progress Note ---
Date of Service February 27, 2019 Assessment & Plan (1) Atrial fibrillation with RVR: Felix bethany RVR H/O tachybradycardia syndrome Subtherapeutic INR on Admission -CXR:Cardiomegaly and cardiac pacemaker. There is no radiographic evidence of congestive failure. Emphysema. Airspace opacities are present at the left lung base. This could represent atelectasis versus pneumonia/aspiration pneumonitis. Clinical correlation will be required and radiographic follow-up to resolution is recommended. Dehydration could have contributed Received IV fluids Cardizem drip discontinued Continue amiodarone 400 mg 3 times daily Added metoprolol 25 mg twice daily, Cardizem 30 mg 3 times daily IV heparin drip discontinued Continue to hold Coumadin due to supratherapeutic INR Monitor INR:3.6 0n 02/27/2019 Lung opacity CXR showed airspace opacities are present at the left lung base. Denies any cough/fever Completed Rocephin, Doxy Day 06/23 Normal procalcitonin levels Denies any respiratory symptoms Delirium--seems to be resolved Agitation Reorient frequently Could have underlying dementia Consulted psychiatry for recommendations Appreciate psychiatrist input and recommendation Abnormal UA Denies any urinary symptoms Urine culture: Mixed probable skin torey Completed Rocephin No acute symptoms CKD IV Creatinine at baseline Monitor renal function Avoid nephrotoxic agents as able Tachy-jacque syndrome S/P PPM DVT Px INR supratherapeutic Coumadin on hold Code status Full code Disposition Needs SNF placement Case management for discharge planning Like to be transferred to [facility] tomorrow Subjective 02/27/2019 The patient was seen and examined in telemetry unit She has dementia and pleasantly confused but denies any acute confusion She was seen by psychiatric stent were following the recommendation Denies any chest pain or palpitation Review of Systems Review of Systems: All systems reviewed and are unremarkable except as noted below Constitutional: + weakness Neurologic: Alert, awake and oriented. Pleasantly confused Physical Exam Physical Exam: Lying in bed with minimal discomfort Constitutional: WD/WN, vitals as above Eyes: PERRL, conjunctivae normal, anicteric sclerae ENMT: external ear and nose normal, oropharynx normal Neck: trachea midline, no thyromegaly Respiratory: normal respiratory effort, lungs clear to auscultation Cardiovascular: RRR, no murmur, no edema Rate/Rhythm: regular rate Heart Sounds: no murmur Extremities: no edema Gastrointestinal (Abdomen): normal bowel sounds, soft, nontender, no hepatosplenomegaly Neurologic: PERRL, EOMI, accommodation nl, no face palsy, no dysarthria Psychiatric: Orientation: + not alert (aroused by verbal/tactile stimuli, but unable to participate in interview) Apperance: appropriately dressed (in hospital gown ) Eye Contact: + poor eye contact (unable to be adequately aroused; sleeping) Motor Behavior: no abnormal motor movements (patient is asleep in bed) Results & Data Vital Signs (Past 12 Hours) Vital Signs Temp Pulse Resp BP BP Pulse Ox 02/27/19 16:06 36.5 C 62 18 143/84 H 95 02/27/19 11:40 36.6 C 60 18 111/72 96 02/27/19 06:58 37.0 C 60 18 137/80 93 Laboratory Results BMP 02/27/19 06:21 Sodium 141 Potassium 4.4 Chloride 107 Carbon Dioxide 28 BUN 38 H Creatinine 1.73 H Glucose 93 Calcium 9.4 Medications Administered Current Inpatient Medications Amiodarone HCl (Cordarone) 400 mg PO TIDM [facility] Stop: 03/23/19 11:59 Last Admin: 02/27/19 15:20 Dose: 400 mg Documented by: Aspirin (Ecotrin Ectab) 81 mg PO QAM [facility] Stop: 03/23/19 08:59 Last Admin: 02/27/19 08:05 Dose: 81 mg Documented by: Diltiazem HCl (Cardizem) 30 mg PO TID [facility] Stop: 03/26/19 20:59 Last Admin: 02/27/19 15:19 Dose: 30 mg Documented by: Metoprolol Tartrate (Lopressor) 2.5 mg IV Q4 PRN PRN Reason: for HR above 120 Stop: 03/22/19 19:48 Last Admin: 02/21/19 00:38 Dose: 2.5 mg Documented by: Metoprolol Tartrate (Lopressor) 25 mg PO BID [facility] Stop: 03/26/19 20:59 Last Admin: 02/27/19 08:04 Dose: 25 mg Documented by: Thiamine HCl (Vitamin B-1) 100 mg PO DAILY [facility] Stop: 03/23/19 08:59 Last Admin: 02/27/19 08:05 Dose: 100 mg Documented by: Vitamin D (Vitamin D3) 2,000 units PO QAM [facility] Stop: 03/23/19 08:59 Last Admin: 02/27/19 08:04 Dose: 2,000 units Documented by: Warfarin Sodium (Coumadin) 2 mg PO DAILY@1600 [facility] Stop: 03/27/19 15:59
[2019-02-27] MEDS ORDERED: QUETIAPINE FUMARATE 25 MG TABLET PO PRN (17:39)
[2019-02-28] MEDS ORDERED: HALOPERIDOL LACTATE 5 MG/ML 1 ML VIAL IM STA (03:23)
[2019-02-28] MEDS ORDERED: HALOPERIDOL LACTATE 5 MG/ML 1 ML VIAL ONE (03:24)
[2019-02-28] MEDS: METOPROLOL TARTRATE 25 MG TAB PO SCH ×2 (07:51→20:05)
[2019-02-28] MEDS: AMIODARONE 200 MG TAB PO SCH ×3 (07:52→17:07)
[2019-02-28] MEDS: dilTIAZem HCL 30 MG TAB PO SCH ×3 (07:52→20:05)
[2019-02-28] MEDS: ASPIRIN 81 MG ECTAB PO SCH (07:52)
[2019-02-28] MEDS: THIAMINE HCL 100 MG TAB PO SCH (07:52)
[2019-02-28] MEDS: CHOLECALCIFEROL 1,000 UNITS TAB PO SCH (07:52)
[2019-02-28 08:47] LABS: INR 2.8 (0.9-1.1); Prothrombin Time 26.4 Seconds (9.0-12.0)
[2019-02-28] MEDS ORDERED: HALOPERIDOL 2 MG/1 ML UDP PO PRN (15:32)
--- NOTE | 2019-02-28 15:37 | Hospitalist Progress Note ---
Date of Service February 28, 2019 Assessment & Plan (1) Atrial fibrillation with RVR: Lee. fib RVR H/O tachybradycardia syndrome Subtherapeutic INR on Admission -CXR:Cardiomegaly and cardiac pacemaker. There is no radiographic evidence of congestive failure. Emphysema. Airspace opacities are present at the left lung base. This could represent atelectasis versus pneumonia/aspiration pneumonitis. Clinical correlation will be required and radiographic follow-up to resolution is recommended. Dehydration could have contributed Received IV fluids Cardizem drip discontinued Continue amiodarone 400 mg 3 times daily Added metoprolol 25 mg twice daily, Cardizem 30 mg 3 times daily IV heparin drip discontinued Continue to hold Coumadin due to supratherapeutic INR Monitor INR:3.6 0n 02/27/2019 INR has improved to 2.8 today. Will hold Coumadin for today Lung opacity CXR showed airspace opacities are present at the left lung base. Denies any cough/fever Completed Rocephin, Doxy Day 06/23 Normal procalcitonin levels Denies any respiratory symptoms Delirium--seems to be resolved Agitation Reorient frequently Could have underlying dementia Consulted psychiatry for recommendations Appreciate psychiatrist input and recommendation Will try Haldol orally with any agitation and avoid any IM injection of Haldol She might be going to [facility] tomorrow Abnormal UA Denies any urinary symptoms Urine culture: Mixed probable skin torey Completed Rocephin No acute symptoms CKD IV Creatinine at baseline Monitor renal function Avoid nephrotoxic agents as able Tachy-jacque syndrome S/P PPM DVT Px INR supratherapeutic Coumadin on hold Code status Full code Disposition Needs SNF placement Case management for discharge planning Like to be transferred to [facility] when accepted Subjective 02/27/2019 The patient was seen and examined in telemetry unit She has dementia and pleasantly confused but denies any acute confusion She was seen by psychiatric stent were following the recommendation Denies any chest pain or palpitation On The patient was seen and examined in the telemetry unit She was agitated last night and required 1 dose of 1 mg IM Haldol and she was not accepted to go to [facility] for this reason She is pleasantly confused without any acute symptoms this morning Review of Systems Review of Systems: All systems reviewed and are unremarkable except as noted below Constitutional: + weakness Neurologic: Alert, awake and oriented. Pleasantly confused Physical Exam Physical Exam: Lying in bed comfortably Constitutional: + thin; no acute distress Eyes: PERRL, conjunctivae normal, anicteric sclerae ENMT: external ear and nose normal, oropharynx normal Neck: trachea midline, no thyromegaly Respiratory: normal respiratory effort; no respiratory distress Auscultation: lungs clear to auscultation bilaterally and + diminished lung sounds Cardiovascular: Rate/Rhythm: regular rate and regular rhythm Heart Sounds: no murmur Extremities: no edema Gastrointestinal (Abdomen): Inspection/Auscultation: abdomen normal to inspection and normal bowel sounds Musculoskeletal: No acute arthritis in any joints Neurologic: PERRL, EOMI, accommodation nl, no face palsy, no dysarthria Alert and awake. Pleasantly confused Psychiatric: Orientation: + not alert (aroused by verbal/tactile stimuli, but unable to participate in interview) Apperance: appropriately dressed (in hospital gown ) Eye Contact: + poor eye contact (unable to be adequately aroused; sleeping) Motor Behavior: no abnormal motor movements (patient is asleep in bed) Results & Data Vital Signs (Past 12 Hours) Vital Signs Temp Pulse Resp BP BP Pulse Ox 02/28/19 15:27 36.3 C L 64 20 125/76 94 02/28/19 11:43 36.6 C 60 18 139/82 95 02/28/19 07:52 36.6 C 64 17 162/67 H 92 02/28/19 04:04 36.6 C 64 20 185/89 H 96 Medications Administered Current Inpatient Medications Amiodarone HCl (Cordarone) 400 mg PO TIDM [facility] Stop: 03/23/19 11:59 Last Admin: 02/28/19 15:00 Dose: 400 mg Documented by: Aspirin (Ecotrin Ectab) 81 mg PO QAM [facility] Stop: 03/23/19 08:59 Last Admin: 02/28/19 07:52 Dose: 81 mg Documented by: Diltiazem HCl (Cardizem) 30 mg PO TID [facility] Stop: 03/26/19 20:59 Last Admin: 02/28/19 15:00 Dose: 30 mg Documented by: Haloperidol Lactate (Haldol Lactate) 2 mg PO Q6H PRN PRN Reason: Agitation Stop: 03/30/19 15:31 Metoprolol Tartrate (Lopressor) 2.5 mg IV Q4 PRN PRN Reason: for HR above 120 Stop: 03/22/19 19:48 Last Admin: 02/21/19 00:38 Dose: 2.5 mg Documented by: Metoprolol Tartrate (Lopressor) 25 mg PO BID [facility] Stop: 03/26/19 20:59 Last Admin: 02/28/19 07:51 Dose: 25 mg Documented by: Quetiapine Fumarate (Seroquel) 25 mg PO Q4H PRN PRN Reason: Anxiety/Agitation Stop: 03/29/19 17:44 Last Admin: 02/28/19 02:36 Dose: 25 mg Documented by: Thiamine HCl (Vitamin B-1) 100 mg PO DAILY [facility] Stop: 03/23/19 08:59 Last Admin: 02/28/19 07:52 Dose: 100 mg Documented by: Vitamin D (Vitamin D3) 2,000 units PO QAM [facility] Stop: 03/23/19 08:59 Last Admin: 02/28/19 07:52 Dose: 2,000 units Documented by: Warfarin Sodium (Coumadin) 2 mg PO DAILY@1600 [facility] Stop: 03/27/19 15:59
[2019-02-28] MEDS ORDERED: HALOPERIDOL ORAL SOLN 2 MG/ML PO PRN (17:50)
[2019-03-01 07:28] LABS: INR 2.5 (0.9-1.1); Prothrombin Time 23.7 Seconds (9.0-12.0)
[2019-03-01] MEDS: CHOLECALCIFEROL 1,000 UNITS TAB PO SCH (07:45)
[2019-03-01] MEDS: THIAMINE HCL 100 MG TAB PO SCH (07:46)
[2019-03-01] MEDS: METOPROLOL TARTRATE 25 MG TAB PO SCH ×2 (07:46→21:07)
[2019-03-01] MEDS: AMIODARONE 200 MG TAB PO SCH ×3 (07:46→15:48)
[2019-03-01] MEDS: dilTIAZem HCL 30 MG TAB PO SCH ×3 (07:46→21:06)
[2019-03-01] MEDS: ASPIRIN 81 MG ECTAB PO SCH (07:47)
[2019-03-01 07:51] LABS: BUN Creatinine Ratio 28.5 (10-20); Calcium 9.2 mg/dl (8.5-10.1); Creatinine Clr Calc Pharmacy 23.6 ml/min; Est GFR (Non-African American) 27.6; Potassium 4.5 mmol/L (3.5-5.1)
--- NOTE | 2019-03-01 13:24 | Hospitalist Progress Note ---
Date of Service March 01, 2019 Assessment & Plan (1) Atrial fibrillation with RVR: Lee. fib RVR H/O tachybradycardia syndrome Subtherapeutic INR on Admission -CXR:Cardiomegaly and cardiac pacemaker. There is no radiographic evidence of congestive failure. Emphysema. Airspace opacities are present at the left lung base. This could represent atelectasis versus pneumonia/aspiration pneumonitis. Clinical correlation will be required and radiographic follow-up to resolution is recommended. Dehydration could have contributed Received IV fluids Cardizem drip discontinued Continue amiodarone 400 mg 3 times daily Added metoprolol 25 mg twice daily, Cardizem 30 mg 3 times daily IV heparin drip discontinued Continue to hold Coumadin due to supratherapeutic INR Monitor INR:3.6 0n 02/27/2019 INR has improved to 2.8 today. Will hold Coumadin for today INR is 2.5 today We will restart her Coumadin from today Lung opacity CXR showed airspace opacities are present at the left lung base. Denies any cough/fever Completed Rocephin, Doxy Day 06/23 Normal procalcitonin levels Denies any respiratory symptoms Delirium--seems to be resolved Agitation Reorient frequently Could have underlying dementia Consulted psychiatry for recommendations Appreciate psychiatrist input and recommendation Will try Haldol orally with any agitation and avoid any IM injection of Haldol She did not require any Haldol for the last 24 hours Does not have any more delirium We will transfer to medical floor and she will be transferred to [facility] on Sunday Abnormal UA Denies any urinary symptoms Urine culture: Mixed probable skin torey Completed Rocephin No acute symptoms CKD IV Creatinine at baseline Monitor renal function Avoid nephrotoxic agents as able Tachy-jacque syndrome S/P PPM DVT Px INR supratherapeutic Coumadin on hold Code status Full code Disposition Needs SNF placement Case management for discharge planning Like to be transferred to [facility] when accepted Subjective 02/27/2019 The patient was seen and examined in telemetry unit She has dementia and pleasantly confused but denies any acute confusion She was seen by psychiatric stent were following the recommendation Denies any chest pain or palpitation On The patient was seen and examined in the telemetry unit She was agitated last night and required 1 dose of 1 mg IM Haldol and she was not accepted to go to [facility] for this reason She is pleasantly confused without any acute symptoms this morning 03/01/2019 Patient was seen and examined in telemetry unit She remains pleasantly confused and did not require any Haldol last night She denies any complaints Awaiting to go to [facility] on Sunday Review of Systems Review of Systems: All systems reviewed and are unremarkable except as noted below Constitutional: + weakness Neurologic: Alert, awake and oriented. Pleasantly confused Physical Exam Physical Exam: Lying in bed comfortably Constitutional: WD/WN, vitals as above + thin; no acute distress Eyes: PERRL, conjunctivae normal, anicteric sclerae ENMT: external ear and nose normal, oropharynx normal Neck: trachea midline, no thyromegaly Respiratory: normal respiratory effort, lungs clear to auscultation normal respiratory effort; no respiratory distress Auscultation: lungs clear to auscultation bilaterally and + diminished lung sounds Cardiovascular: RRR, no murmur, no edema Rate/Rhythm: regular rate and regular rhythm Heart Sounds: no murmur Extremities: no edema Gastrointestinal (Abdomen): normal bowel sounds, soft, nontender, no hepatosplenomegaly Inspection/Auscultation: abdomen normal to inspection and normal bowel sounds Neurologic: PERRL, EOMI, accommodation nl, no face palsy, no dysarthria Psychiatric: Orientation: + not alert (aroused by verbal/tactile stimuli, but unable to participate in interview) Apperance: appropriately dressed (in hospital gown ) Eye Contact: + poor eye contact (unable to be adequately aroused; sleeping) Motor Behavior: no abnormal motor movements (patient is asleep in bed) Results & Data Vital Signs (Past 12 Hours) Vital Signs Temp Pulse Resp BP BP Pulse Ox 03/01/19 11:48 36.6 C 60 19 152/84 H 94 03/01/19 07:03 36.5 C 60 18 134/76 94 03/01/19 04:28 37.0 C 63 20 115/78 96 Laboratory Results [facility] 03/01/19 06:45 Sodium 138 Potassium 4.5 Chloride 104 Carbon Dioxide 30 BUN 48 H Creatinine 1.69 H Glucose 82 Calcium 9.2 Medications Administered Current Inpatient Medications Amiodarone HCl (Cordarone) 400 mg PO TIDM [facility] Stop: 03/23/19 11:59 Last Admin: 03/01/19 11:47 Dose: 400 mg Documented by: Aspirin (Ecotrin Ectab) 81 mg PO QAM [facility] Stop: 03/23/19 08:59 Last Admin: 03/01/19 07:47 Dose: 81 mg Documented by: Diltiazem HCl (Cardizem) 30 mg PO TID [facility] Stop: 03/26/19 20:59 Last Admin: 03/01/19 07:46 Dose: 30 mg Documented by: Haloperidol Lactate (Haldol Lactate) 2 mg PO Q6H PRN PRN Reason: Agitation Stop: 03/30/19 15:31 Haloperidol Lactate (Haldol Lactate) 2 mg PO Q6H PRN PRN Reason: AGITATION Stop: 03/30/19 17:49 Last Admin: 02/28/19 18:07 Dose: 2 mg Documented by: Metoprolol Tartrate (Lopressor) 2.5 mg IV Q4 PRN PRN Reason: for HR above 120 Stop: 03/22/19 19:48 Last Admin: 02/21/19 00:38 Dose: 2.5 mg Documented by: Metoprolol Tartrate (Lopressor) 25 mg PO BID [facility] Stop: 03/26/19 20:59 Last Admin: 03/01/19 07:46 Dose: 25 mg Documented by: Quetiapine Fumarate (Seroquel) 25 mg PO Q4H PRN PRN Reason: Anxiety/Agitation Stop: 03/29/19 17:44 Last Admin: 02/28/19 02:36 Dose: 25 mg Documented by: Thiamine HCl (Vitamin B-1) 100 mg PO DAILY [facility] Stop: 03/23/19 08:59 Last Admin: 03/01/19 07:46 Dose: 100 mg Documented by: Vitamin D (Vitamin D3) 2,000 units PO QAM [facility] Stop: 03/23/19 08:59 Last Admin: 03/01/19 07:45 Dose: 2,000 units Documented by: Warfarin Sodium (Coumadin) 2 mg PO DAILY@1600 [facility] Stop: 03/27/19 15:59
[2019-03-01] MEDS: WARFARIN SOD 2 MG TAB PO SCH ×2 (13:40→16:59)
[2019-03-02 06:02] LABS: Basophils # (auto) 0.05 K/uL (0-0.2); Basophils % (auto) 0.4 %; Eosinophils # (auto) 0.22 K/uL (0-0.5); Eosinophils % (auto) 1.9 %; Hematocrit (blood only) 43.5 % (37-47); Hemoglobin 14.5 g/dL (12.0-16.0); Immature Granulocytes % (auto) 0.9 %; Lymphocytes # (auto) 1.53 K/uL (1.2-3.4); Lymphocytes % (auto) 13.2 %; Mean Corpuscular Hemoglobin 30.2 pg (25-34); Mean Corpuscular Hgb Conc 33.3 g/dL (32-36); Mean Corpuscular Volume 90.6 fL (80-100); Monocytes # (auto) 0.76 K/uL (0.11-0.59); Monocytes % (auto) 6.6 %; Platelet Count 460 K/uL (130-400); RDW Standard Deviation 49.7 fL (36.4-46.3); White Blood Count 11.56 K/uL (4.8-10.8)
[2019-03-02 06:08] LABS: Prothrombin Time 19.8 Seconds (9.0-12.0)
[2019-03-02 06:31] LABS: BUN Creatinine Ratio 27.6 (10-20); Calcium 8.9 mg/dl (8.5-10.1); Creatinine Clr Calc Pharmacy 17.8 ml/min; Est GFR (African American) 22.8; Est GFR (Non-African American) 19.6
[2019-03-02] MEDS: METOPROLOL TARTRATE 25 MG TAB PO SCH ×2 (07:35→20:12)
[2019-03-02] MEDS: CHOLECALCIFEROL 1,000 UNITS TAB PO SCH (07:35)
[2019-03-02] MEDS: AMIODARONE 200 MG TAB PO SCH ×3 (07:36→16:09)
[2019-03-02] MEDS: dilTIAZem HCL 30 MG TAB PO SCH ×3 (07:36→20:13)
[2019-03-02] MEDS: ASPIRIN 81 MG ECTAB PO SCH (07:37)
[2019-03-02] MEDS: THIAMINE HCL 100 MG TAB PO SCH (07:37)
--- NOTE | 2019-03-02 14:46 | Hospitalist Progress Note ---
Date of Service March 02, 2019 Assessment & Plan (1) Atrial fibrillation with RVR: Felix bethany RVR H/O tachybradycardia syndrome Subtherapeutic INR on Admission -CXR:Cardiomegaly and cardiac pacemaker. There is no radiographic evidence of congestive failure. Emphysema. Airspace opacities are present at the left lung base. This could represent atelectasis versus pneumonia/aspiration pneumonitis. Clinical correlation will be required and radiographic follow-up to resolution is recommended. Dehydration could have contributed Received IV fluids Cardizem drip discontinued Continue amiodarone 400 mg 3 times daily Added metoprolol 25 mg twice daily, Cardizem 30 mg 3 times daily IV heparin drip discontinued Continue to hold Coumadin due to supratherapeutic INR Monitor INR:3.6 0n 02/27/2019 INR has improved to 2.8 today. Will hold Coumadin for today INR is 2.5 today We will restart her Coumadin from today INR is 2.0 today 03/02/2019 Lung opacity CXR showed airspace opacities are present at the left lung base. Denies any cough/fever Completed Rocephin, Doxy Day 06/23 Normal procalcitonin levels Denies any respiratory symptoms Delirium--seems to be resolved Agitation Reorient frequently Could have underlying dementia Consulted psychiatry for recommendations Appreciate psychiatrist input and recommendation Will try Haldol orally with any agitation and avoid any IM injection of Haldol She did not require any Haldol for the last 24 hours Does not have any more delirium We will transfer to medical floor and she will be transferred to [facility] on Sunday No more acute delirium and did not require any more Haldol for the last 48 hours Remains stable to be transferred to [facility] tomorrow Abnormal UA Denies any urinary symptoms Urine culture: Mixed probable skin torey Completed Rocephin No acute symptoms CKD IV Creatinine at baseline Monitor renal function Avoid nephrotoxic agents as able Tachy-jacque syndrome S/P PPM DVT Px INR supratherapeutic Coumadin on hold Code status Full code Disposition Needs SNF placement Case management for discharge planning Like to be transferred to [facility] when accepted Subjective 02/27/2019 The patient was seen and examined in telemetry unit She has dementia and pleasantly confused but denies any acute confusion She was seen by psychiatric stent were following the recommendation Denies any chest pain or palpitation On The patient was seen and examined in the telemetry unit She was agitated last night and required 1 dose of 1 mg IM Haldol and she was not accepted to go to [facility] for this reason She is pleasantly confused without any acute symptoms this morning 03/01/2019 Patient was seen and examined in telemetry unit She remains pleasantly confused and did not require any Haldol last night She denies any complaints Awaiting to go to [facility] on Sunday03/02/2019 Patient was seen and examined in medical floor She remained stable and did not require any more Haldol for the last 48 hours Denies any symptoms Review of Systems Review of Systems: All systems reviewed and are unremarkable except as noted below Constitutional: + weakness Neurologic: Alert, awake and oriented. Pleasantly confused Physical Exam Physical Exam: No apparent distress at rest Constitutional: WD/WN, vitals as above + thin; no acute distress Eyes: PERRL, conjunctivae normal, anicteric sclerae ENMT: external ear and nose normal, oropharynx normal Neck: trachea midline, no thyromegaly Respiratory: normal respiratory effort, lungs clear to auscultation normal respiratory effort; no respiratory distress Auscultation: lungs clear to auscultation bilaterally and + diminished lung sounds Cardiovascular: RRR, no murmur, no edema Rate/Rhythm: regular rate and regular rhythm Heart Sounds: no murmur Extremities: no edema Gastrointestinal (Abdomen): normal bowel sounds, soft, nontender, no hepatosplenomegaly Inspection/Auscultation: abdomen normal to inspection and normal bowel sounds Neurologic: PERRL, EOMI, accommodation nl, no face palsy, no dysarthria Psychiatric: Orientation: + not alert (aroused by verbal/tactile stimuli, but unable to participate in interview) Apperance: appropriately dressed (in hospital gown ) Eye Contact: + poor eye contact (unable to be adequately aroused; sleeping) Motor Behavior: no abnormal motor movements (patient is asleep in bed) Results & Data Vital Signs (Past 12 Hours) Vital Signs Temp Pulse Resp BP Pulse Ox 03/02/19 07:25 37.0 C 67 18 151/84 H 92 Laboratory Results Short CBC 03/02/19 Range/Units 05:21 WBC 11.56 H (4.8-10.8) K/uL Hgb 14.5 (12.0-16.0) g/dL Hct 43.5 (37-47) % Plt Count 460 H (130-400) K/uL BMP 03/02/19 05:21 Sodium 137 Potassium 5.0 Chloride 103 Carbon Dioxide 28 BUN 62 H Creatinine 2.24 H D Glucose 86 Calcium 8.9 Medications Administered Current Inpatient Medications Amiodarone HCl (Cordarone) 400 mg PO TIDM [facility] Stop: 03/23/19 11:59 Last Admin: 03/02/19 12:13 Dose: 400 mg Documented by: Aspirin (Ecotrin Ectab) 81 mg PO QAM [facility] Stop: 03/23/19 08:59 Last Admin: 03/02/19 07:37 Dose: 81 mg Documented by: Diltiazem HCl (Cardizem) 30 mg PO TID [facility] Stop: 03/26/19 20:59 Last Admin: 03/02/19 14:20 Dose: 30 mg Documented by: Haloperidol Lactate (Haldol Lactate) 2 mg PO Q6H PRN PRN Reason: Agitation Stop: 03/30/19 15:31 Haloperidol Lactate (Haldol Lactate) 2 mg PO Q6H PRN PRN Reason: AGITATION Stop: 03/30/19 17:49 Last Admin: 02/28/19 18:07 Dose: 2 mg Documented by: Metoprolol Tartrate (Lopressor) 2.5 mg IV Q4 PRN PRN Reason: for HR above 120 Stop: 03/22/19 19:48 Last Admin: 02/21/19 00:38 Dose: 2.5 mg Documented by: Metoprolol Tartrate (Lopressor) 25 mg PO BID [facility] Stop: 03/26/19 20:59 Last Admin: 03/02/19 07:35 Dose: 25 mg Documented by: Quetiapine Fumarate (Seroquel) 25 mg PO Q4H PRN PRN Reason: Anxiety/Agitation Stop: 03/29/19 17:44 Last Admin: 02/28/19 02:36 Dose: 25 mg Documented by: Thiamine HCl (Vitamin B-1) 100 mg PO DAILY [facility] Stop: 03/23/19 08:59 Last Admin: 03/02/19 07:37 Dose: 100 mg Documented by: Vitamin D (Vitamin [facility]) [facility] Stop: 03/23/19 08:59 Last Admin: 03/02/19 07:35 Dose: 2,000 units Documented by: Warfarin Sodium (Coumadin) 2 mg PO DAILY@1600 [facility] Stop: 03/27/19 15:59 Last Admin: 03/01/19 16:59 Dose: 2 mg Documented by:
[2019-03-02] MEDS: WARFARIN SOD 2 MG TAB PO SCH (16:09)
[2019-03-03 07:06] LABS: INR 2.7 (0.9-1.1); Prothrombin Time 25.5 Seconds (9.0-12.0)
[2019-03-03] MEDS: ASPIRIN 81 MG ECTAB PO SCH (08:12)
[2019-03-03] MEDS: THIAMINE HCL 100 MG TAB PO SCH (08:12)
[2019-03-03] MEDS: CHOLECALCIFEROL 1,000 UNITS TAB PO SCH (08:12)
[2019-03-03] MEDS: METOPROLOL TARTRATE 25 MG TAB PO SCH (08:12)
[2019-03-03] MEDS: AMIODARONE 200 MG TAB PO SCH ×3 (08:12→16:03)
[2019-03-03] MEDS: dilTIAZem HCL 30 MG TAB PO SCH ×2 (08:12→13:08)
--- NOTE | 2019-03-03 14:11 | Hospitalist Progress Note ---
Date of Service March 03, 2019 Assessment & Plan (1) Atrial fibrillation with RVR: A. fib RVR H/O tachybradycardia syndrome Subtherapeutic INR on Admission -CXR:Cardiomegaly and cardiac pacemaker. There is no radiographic evidence of congestive failure. Emphysema. Airspace opacities are present at the left lung base. This could represent atelectasis versus pneumonia/aspiration pneumonitis. Clinical correlation will be required and radiographic follow-up to resolution is recommended. Dehydration could have contributed Received IV fluids Cardizem drip discontinued Continue amiodarone 400 mg 3 times daily Added metoprolol 25 mg twice daily, Cardizem 30 mg 3 times daily IV heparin drip discontinued Continue to hold Coumadin due to supratherapeutic INR Monitor INR:3.6 0n 02/27/2019 INR has improved to 2.8 today. Will hold Coumadin for today INR is 2.5 today We will restart her Coumadin from today INR is 2.0 today 03/02/2019 INR remains therapeutic at 2.71 03/03/2019 We will continue current dose of Coumadin Lung opacity CXR showed airspace opacities are present at the left lung base. Denies any cough/fever Completed Rocephin, Doxy Day 06/23 Normal procalcitonin levels Denies any respiratory symptoms Delirium--seems to be resolved Agitation Reorient frequently Could have underlying dementia Consulted psychiatry for recommendations Appreciate psychiatrist input and recommendation Will try Haldol orally with any agitation and avoid any IM injection of Haldol She did not require any Haldol for the last 24 hours Does not have any more delirium We will transfer to medical floor and she will be transferred to [facility] on Sunday No more acute delirium and did not require any more Haldol for the last 48 hours Remains stable to be transferred to [facility] tomorrow She has dementia but does not have any acute delirium She will continue current dose of antipsychotic as prescribed by the psychiatrist Abnormal UA Denies any urinary symptoms Urine culture: Mixed probable skin torey Completed Rocephin No acute symptoms CKD IV Creatinine at baseline Monitor renal function Avoid nephrotoxic agents as able Tachy-jacque syndrome S/P PPM DVT Px INR supratherapeutic Coumadin on hold Code status Full code Disposition Needs SNF placement Case management for discharge planning Discussed with her son on Sunday in detail-was agreeable that she could be discharged on Sunday Will go to [facility] this afternoon Subjective 02/27/2019 The patient was seen and examined in telemetry unit She has dementia and pleasantly confused but denies any acute confusion She was seen by psychiatric stent were following the recommendation Denies any chest pain or palpitation On The patient was seen and examined in the telemetry unit She was agitated last night and required 1 dose of 1 mg IM Haldol and she was not accepted to go to [facility] for this reason She is pleasantly confused without any acute symptoms this morning 03/01/2019 Patient was seen and examined in telemetry unit She remains pleasantly confused and did not require any Haldol last night She denies any complaints Awaiting to go to [facility] on Sunday03/02/2019 Patient was seen and examined in medical floor She remained stable and did not require any more Haldol for the last 48 hours Denies any symptoms 03/03/2019 The patient was seen and examined in medical floor She did not have any acute agitation/confusion for the last 48 hours or so Did not require any more Haldol She remains stable without any confusion as of today and she denies any symptoms She will be discharged to [facility] this afternoon Review of Systems Review of Systems: All systems reviewed and are unremarkable except as noted below Constitutional: + weakness Neurologic: Alert, awake and oriented. Pleasantly confused Physical Exam Physical Exam: Sitting on a chair without any acute symptoms Constitutional: WD/WN, vitals as above + thin; no acute distress Eyes: PERRL, conjunctivae normal, anicteric sclerae ENMT: external ear and nose normal, oropharynx normal Neck: trachea midline, no thyromegaly Respiratory: normal respiratory effort; no respiratory distress Auscultati on: lungs clear to auscultation bilaterally and + diminished lung sounds Cardiovascular: RRR, no murmur, no edema Rate/Rhythm: regular rate and regular rhythm Heart Sounds: no murmur Extremities: no edema Gastrointestinal (Abdomen): normal bowel sounds, soft, nontender, no hepatosplenomegaly Inspection/Auscultation: abdomen normal to inspection and normal bowel sounds Neurologic: PERRL, EOMI, accommodation nl, no face palsy, no dysarthria Psychiatric: Orientation: + not alert (aroused by verbal/tactile stimuli, but unable to participate in interview) Apperance: appropriately dressed (in hospital gown ) Eye Contact: + poor eye contact (unable to be adequately aroused; sleeping) Motor Behavior: no abnormal motor movements (patient is asleep in bed) Lymphatic: no cervical or axillary lymphadenopathy Results & Data Vital Signs (Past 12 Hours) Vital Signs Temp Pulse Resp BP Pulse Ox 03/03/19 11:54 36.7 C 62 18 154/80 H 95 03/03/19 07:26 36.7 C 62 18 154/80 H 95 Medications Administered Current Inpatient Medications Amiodarone HCl (Cordarone) 400 mg PO TIDM [facility] Stop: 03/23/19 11:59 Last Admin: 03/03/19 13:09 Dose: 400 mg Documented by: Aspirin (Ecotrin Ectab) 81 mg PO QAM [facility] Stop: 03/23/19 08:59 Last Admin: 03/03/19 08:12 Dose: 81 mg Documented by: Diltiazem HCl (Cardizem) 30 mg PO TID [facility] Stop: 03/26/19 20:59 Last Admin: 03/03/19 13:08 Dose: 30 mg Documented by: Haloperidol Lactate (Haldol Lactate) 2 mg PO Q6H PRN PRN Reason: Agitation Stop: 03/30/19 15:31 Haloperidol Lactate (Haldol Lactate) 2 mg PO Q6H PRN PRN Reason: AGITATION Stop: 03/30/19 17:49 Last Admin: 02/28/19 18:07 Dose: 2 mg Documented by: Metoprolol Tartrate (Lopressor) 2.5 mg IV Q4 PRN PRN Reason: for HR above 120 Stop: 03/22/19 19:48 Last Admin: 02/21/19 00:38 Dose: 2.5 mg Documented by: Metoprolol Tartrate (Lopressor) 25 mg PO BID [facility] Stop: 03/26/19 20:59 Last Admin: 03/03/19 08:12 Dose: 25 mg Documented by: Quetiapine Fumarate (Seroquel) 25 mg PO Q4H PRN PRN Reason: Anxiety/Agitation Stop: 03/29/19 17:44 Last Admin: 02/28/19 02:36 Dose: 25 mg Documented by: Thiamine HCl (Vitamin B-1) 100 mg PO DAILY [facility] Stop: 03/23/19 08:59 Last Admin: 03/03/19 08:12 Dose: 100 mg Documented by: Vitamin D (Vitamin D3) 2,000 units PO QAM [facility] Stop: 03/23/19 08:59 Last Admin: 03/03/19 08:12 Dose: 2,000 units Documented by: Warfarin Sodium (Coumadin) 2 mg PO DAILY@1600 [facility] Stop: 03/27/19 15:59 Last Admin: 03/02/19 16:09 Dose: 2 mg Documented by:
--- NOTE | 2019-03-03 15:21 | XRay Report ---
XR pelvis 1-2V routine CLINICAL HISTORY: Pelvic pain status post trauma COMPARISON: None. DISCUSSION: There are postsurgical changes of a total right hip arthroplasty. No acute fractures are visualized. There is no evidence of SI joint diastases. There is no symphysis diastases. Degenerative changes are present within the lower lumbar spine. IMPRESSION: No fractures identified. ACT 112: Negative or not required by law. Electronically signed by: Silvestre Moore M.D. 03/03/2019 3:20 PM
[2019-03-03] MEDS: WARFARIN SOD 2 MG TAB PO SCH (16:03)
--- NOTE | 2019-03-04 09:03 | Discharge Summary ---
Date of Service March 04, 2019 Admission HPI Per Admitting Provider Donny Mccurdy is an 83-year-old female admitted medically on 02/20/2019 for A. fib with RVR, after presenting to the ED with palpitations. Hospital documentation from 02/23/2019 suggests intermittent confusion, presumed to be related to delirium. It is stated that family has been concerned about the presence of underlying dementia. Occasionally, patient has been reported to demonstrate baseline functioning, though it also appears that she has been displaying some restlessness/agitation periodically as well. Pt has received 4 doses of IM olanzapine 2.5mg - 2 doses in the early hours of 02/24/2019, and 2 doses again the evening of 02/25/2019. It is reported that the patient has been sedated most of the day today, questioning correlation to olanzapine dosing. Psychiatric consultation was requested to offer medication recommendations for agitation/restlessness. Patient was seen on psychiatric consult service by this provider and Helen Maria PA-C - observing psychiatric provider. Patient was observed to be sleeping, but was easily aroused by verbal and tactile stimuli. Unfortunately, patient was not able to maintain attention for a decent period of time before drifting back to sleep. Pt verbalized awareness of this provider's presence in the room, but is clearly unable to participate in a meaningful interview at this time. She does indicate that she is feeling tired, but otherwise the patient's speech is unintelligible. Primary attempts will be made to gather collateral information from staff and patient's family/supports until patient is able to participate more appropriately in an interview. Attempt was made to revisit patient later in the afternoon, after it was reported the patient's family was requesting to speak with a psychiatric provider. Again, patient did not have visitors in her room, and patient was found to be asleep. On this occasion, patient awoke rather easily to verbal stimuli and actually maintained attention for rather decent conversation. Patient admits that she is feeling "pretty good" today, but admits to feeling tired. She states "well, I have not slept in the past few days." Patient begins providing information related to the of a friend's daughter, stating the is tomorrow. It is unclear if these reports are valid, as there are no supports present to confirm the statements. Patient does indicate that her mood has been "half and half" since her hospitalization, stating that she is somewhat scared and that this is only her second hospitalization in her life. She denies significant mood or anxiety concerns prior to her hospital admission, and states that any current symptoms are manageable and reasonable for the circumstances. Patient denies any previous psychiatric history, and states she has never been treated for depression or anxiety in the past. She denies history of hallucinations or paranoia. As patient appeared rather lucid overall, this provider took the opportunity to update her about recent episodes of confusion. Patient states that she does not recall the specific events, and denies knowledge of confusion or hallucinations during her hospitalization. Patient was informed that medications have been utilized to keep her calm and comfortable during these episodes, and that this may be contributing to her fatigue today. As this provider attempted to begin conversation about these medications, patient's friends "Clarence" entered the room. Patient was able to address both individuals by name; however, does state that they are only friends. Patient denies having a daughter. Visitors did not contest that they are not family. It does appear that they had been visiting the patient earlier in the afternoon, and do state "all year with psychiatry, our questions were for the other service." Patient was offered to sign an SAUD for the friends in order to allow us to update them pertinent information and obtain information from them. Patient declines to sign an SAUD at this time. She denied other specific needs from our service at this time. She was informed we will continue to follow her case observing for continued episodes of confusion. Admission Exam Per Admitting Provider Physical Exam: General- No acute distress Head- atraumatic Eyes- PERRL, EOMI, ENT- oropharynx clear, dry mouth Neck- supple, no JVD Lungs- clear to auscultation Heart- irregular rhythm Abdomen- normal bowel sounds, soft, nontender Extremities- no calf tenderness Neuro- alert, oriented x 3; PERRL, EOMI; no facial palsy; no dysarthria Skin- warm & dry Principal Diagnosis Atrial fibrillation with RVR-controlled, delirium-resolved. dementia Discharge Exam Constitutional WD/WN, vitals as above + thin; no acute distress Eyes PERRL, conjunctivae normal, anicteric sclerae ENMT external ear and nose normal, oropharynx normal Neck trachea midline, no thyromegaly Respiratory normal respiratory effort, lungs clear to auscultation normal respiratory effort; no respiratory distress Auscultation: lungs clear to auscultation bilaterally and + diminished lung sounds Cardiovascular RRR, no murmur, no edema Rate/Rhythm: regular rate and regular rhythm Heart Sounds: no murmur Extremities: no edema Gastrointestinal (Abdomen) normal bowel sounds, soft, nontender, no hepatosplenomegaly Inspection/Auscultation: abdomen normal to inspection and normal bowel sounds Neurologic PERRL, EOMI, accommodation nl, no face palsy, no dysarthria Psychiatric Orientation: + not alert (aroused by verbal/tactile stimuli, but unable to participate in interview) Apperance: appropriately dressed (in hospital gown ) Eye Contact: + poor eye contact (unable to be adequately aroused; sleeping) Motor Behavior: no abnormal motor movements (patient is asleep in bed) Lymphatic no cervical or axillary lymphadenopathy Discharge Data Allergies Allergy/AdvReac Type Severity Reaction Status Date / Time No Known Allergies Allergy Unverified 02/20/19 15:29 Consultations 02/20/19 17:45 ED Decision to Admit Stat 02/20/19 19:49 Consult Cardiology Routine 02/26/19 10:44 Consult Psychiatry Routine Hospital Course (1) Atrial fibrillation with RVR: A. fib RVR H/O tachybradycardia syndrome Subtherapeutic INR on Admission -CXR:Cardiomegaly and cardiac pacemaker. There is no radiographic evidence of congestive failure. Emphysema. Airspace opacities are present at the left lung base. This could represent atelectasis versus pneumonia/aspiration pneumonitis. Clinical correlation will be required and radiographic follow-up to resolution is recommended. Dehydration could have contributed Received IV fluids Cardizem drip discontinued Continue amiodarone 400 mg 3 times daily Added metoprolol 25 mg twice daily, Cardizem 30 mg 3 times daily IV heparin drip discontinued Continue to hold Coumadin due to supratherapeutic INR Monitor INR:3.6 0n 02/27/2019 INR has improved to 2.8 today. Will hold Coumadin for today INR is 2.5 today We will restart her Coumadin from today INR is 2.0 today 03/02/2019 INR remains therapeutic at 2.71 03/03/2019 We will continue current dose of Coumadin Lung opacity CXR showed airspace opacities are present at the left lung base. Denies any cough/fever Completed Rocephin, Doxy Day 06/23 Normal procalcitonin levels Denies any respiratory symptoms Delirium--seems to be resolved Agitation Reorient frequently Could have underlying dementia Consulted psychiatry for recommendations Appreciate psychiatrist input and recommendation Will try Haldol orally with any agitation and avoid any IM injection of Haldol She did not require any Haldol for the last 24 hours Does not have any more delirium We will transfer to medical floor and she will be transferred to [facility] on Sunday No more acute delirium and did not require any more Haldol for the last 48 hours Remains stable to be transferred to [facility] tomorrow She has dementia but does not have any acute delirium She will continue current dose of antipsychotic as prescribed by the psychiatrist Abnormal UA Denies any urinary symptoms Urine culture: Mixed probable skin torey Completed Rocephin No acute symptoms CKD IV Creatinine at baseline Monitor renal function Avoid nephrotoxic agents as able Tachy-jacque syndrome S/P PPM DVT Px INR supratherapeutic Coumadin on hold Code status Full code Disposition Needs SNF placement Case management for discharge planning Discussed with her son on Sunday in detail-was agreeable that she could be discharged on Sunday Will go to [facility] this afternoon Total Time Total Time Spent Total Time Spent (In Minutes): 35 minutes Total Time Includes: Examination of the Patient, Discharge Planning, Medication Reconciliation and Communication With Other Providers Discharge Plan Discharge Items Patient Disposition: Transfer [facility] Reason For Visit: AFIB Discharge Diagnosis: Atrial fibrillation with RVR-controlled, delirium-resolved. dementia Condition on Discharge: Fair Activity: Resume your previous activity Activity Comment: Take extra precaution to avoid falls Non-emergency contact: Primary Care Provider Call non-emergency contact if: you have any medication questions and your symptoms worsen Follow-up/Referrals: Daylin Kelley MD [Primary Care Provider] - (Please make an appointment with your primary care physician within 1 week.) Diet: Heart Healthy Addtl Attending Provider Instructions: Please take all precautions to prevent falls Pending Studies at Discharge: No Stand-Alone Forms: My [employer] Skilled Items Patient informed of condition?: Yes DNR: No Discharge Level of Care: Skilled Communicable Disease: No Discharge Prognosis: Stable Lines: None Urinary Catheter: No Medications and DC Order Prescriptions: New quetiapine 25 mg Tablet 25 mg PO Q4H PRN (Reason: anxiety) 30 Days Qty: 60 RF: 0 diltiazem HCl 30 mg Tablet 30 mg PO TID 30 Days Qty: 90 RF: 0 metoprolol tartrate 25 mg Tablet 25 mg PO BID 30 Days Qty: 60 RF: 0 amiodarone 200 mg tablet 200 mg PO DAILY Qty: 30 RF: 0 Continued thiamine HCl (vitamin B1) 100 mg tablet 100 mg/kg PO DAILY RF: 0 warfarin [Coumadin] 2 mg tablet 2 mg PO DAILY RF: 0 aspirin 81 mg Tablet,Chewable 81 mg PO QAM RF: 0 cholecalciferol (vitamin D3) [Vitamin D3] 2,000 unit Tablet 2,000 unit PO QAM RF: 0 Discontinued carvedilol 6.25 mg Tablet 6.25 mg PO BID Qty: 60 RF: 1 amlodipine [Norvasc] 5 mg Tablet 5 mg PO QAM Qty: 30 RF: 1 Discharge Orders: Discharge Order (Routine); Ordered 03/03/19 Ordered By: Lilo Mills Admission Data Admit Date/Time: 02/20/19 18:53 Attending Provider: Lilo Mills Admit Provider: Tamar Dinero Primary Care Provider: Daylin Kelley Other Providers: Lindsay Zaldivar ; Shalom Duque ; Tamar Dinero ; Alberto Solis ; Sheila Minor Other Interventions: Discharge Summary Assessment (RN) Last Done: 03/03/19 16:58 DC Date/Time DO NOT enter until pt leaves facility: 03/03/19 18:20
== END 2019-03-03 18:20 | DRG 309 ==
LOC: ED 13:44 → 2S 17:20 → SUATTDRO 18:53 → 2S 18:53 → 4W 03-01 20:37

== ENCOUNTER 2019-03-24 15:42 | Observation (INO) ==
[2019-03-24] MEDS ORDERED: SODIUM CHLORIDE 0.9% 500 ML IV SCH (16:15)
[2019-03-24 16:49] LABS: Hemoglobin 13.1 g/dL (12.0-16.0); Mean Corpuscular Hemoglobin 30.3 pg (25-34); Mean Corpuscular Hgb Conc 32.8 g/dL (32-36); Mean Corpuscular Volume 92.4 fL (80-100); Platelet Count 400 K/uL (130-400); RDW Coefficient of Variation 17.4 % (11.5-14.5); RDW Standard Deviation 58.4 fL (36.4-46.3); Red Blood Count 4.33 M/uL (4.2-5.4); White Blood Count 10.96 K/uL (4.8-10.8)
[2019-03-24] MEDS ORDERED: ONDANSETRON INJ 2 MG/ML 2 ML VIAL IV STA (16:49)
[2019-03-24 17:06] LABS: Alanine Aminotransferase 29 U/L (12-78); Albumin Level 2.8 gm/dl (3.4-5.0); Aspartate Aminotransferase 22 U/L (15-37); BUN Creatinine Ratio 21.7 (10-20); Blood Urea Nitrogen 40 mg/dl (7-18); Calcium 8.5 mg/dl (8.5-10.1); Carbon Dioxide 28 mmol/L (21-32); Chloride 105 mmol/L (98-107); Est GFR (African American) 29.3; Est GFR (Non-African American) 25.2; Glucose 83 mg/dl (70-99); Lipase 265 U/L (73-393); Magnesium 2.1 mg/dl (1.8-2.4); Potassium 4.5 mmol/L (3.5-5.1); Sodium 138 mmol/L (136-145)
[2019-03-24 17:10] LABS: Albumin Globulin Ratio 0.7 (0.9-2); Alkaline Phosphatase 93 U/L (45-117); Bilirubin,Total 0.2 mg/dl (0.2-1); Globulin 4.1 gm/dl (2.5-4.0); Total Protein 6.9 gm/dl (6.4-8.2); Troponin I < 0.015 ng/ml (0-0.045)
[2019-03-24 17:11] LABS: Prothrombin Time 60.8 Seconds (9.0-12.0)
[2019-03-24 17:19] LABS: Basophils # (auto) 0.03 K/uL (0-0.2); Basophils % (auto) 0.3 %; Eosinophils # (auto) 0.23 K/uL (0-0.5); Eosinophils % (auto) 2.1 %; Immature Granulocytes # (auto) 0.68 K/uL (0.00-0.02); Immature Granulocytes % (auto) 6.2 %; Lymphocytes # (auto) 1.25 K/uL (1.2-3.4); Lymphocytes % (auto) 11.4 %; Monocytes # (auto) 0.85 K/uL (0.11-0.59); Monocytes % (auto) 7.8 %; Neutrophils # (auto) 7.92 K/uL (1.4-6.5); Neutrophils % (auto) 72.2 %
--- NOTE | 2019-03-24 17:22 | CT Scan Report ---
HEAD CT NONCONTRAST CT DOSE: HISTORY: Headaches. nausea, INR >8, gen weakness TECHNIQUE: Multiaxial CT images of the head were performed without the use of intravenous contrast. A utomated exposure control was utilized for this study. A dose lowering technique was utilized adheri ng to the principles of ALARA. Comparison: Head CT 01/26/2019. Findings: Moderate mucosal thickening within the sphenoid sinuses which has improved. The mastoid air cells are clear. The calvarium and skull base are intact. There is no mass, hematoma, midline shift, acute infarct. White matter hypodensity is nonspecific but suggestive of moderate microvascular isch emic change. The ventricles and sulci demonstrate moderate age-related involutional changes. This rem ains unchanged. Impression: No significant change compared to the prior study. No acute intracranial abnormality. ACT 112: Negative or not required by law. Electronically signed by: Oscar Tomlinson M.D. 03/24/2019 5:21 PM
[2019-03-24 17:24] LABS: INR 6.8 (0.9-1.1)
[2019-03-24 17:25] LABS: Partial Thromboplastin Time 80.3 Seconds (21.0-31.0)
[2019-03-24] MEDS ORDERED: PHYTONADIONE 5 MG in SODIUM CHLORIDE 0.9% 50 ML IV ONE (17:25)
--- NOTE | 2019-03-24 18:01 | CT Scan Report ---
ABDOMEN AND PELVIS CT WITHOUT CONTRAST CT DOSE: 882.61 mGy.cm HISTORY: Acute nausea with bloody stools nausea, elevated INR, ?bloody stools TECHNIQUE: Multiaxial CT images of the abdomen and pelvis were performed without contrast. A dose lo wering technique was utilized adhering to the principles of ALARA. COMPARISON STUDY: Pelvis radiograph 03/03/2019 FINDINGS: Trace left pleural effusion with dependent subpleural left lung base consolidation suggestive of atel ectasis/scarring. Linear branching 5 mm nodular opacity of the basal left lower lobe is suggestive of mucous plugging. There is no pneumatosis or pneumoperitoneum. Cardiomegaly with partially imaged pac er leads. No large pericardial effusion. Limited evaluation of the solid abdominal organs without the use of IV contrast. Scattered calcified granulomata noted throughout the spleen. Mild generalized pancreatic atrophy. Indeterminate 7 mm cyst ic focus of the pancreatic neck, possibly reflective of a sidebranch IPMN, image 143 series 5. Unrema rkable gallbladder. There are several hypodense foci in liver suggestive of probable cysts measuring up to 1.9 cm and the left hepatic lobe. Adrenal glands are within normal limits. Kidneys, and ureters are unremarkable. Mild nonspecific urinary bladder wall thickening. Streak artif act from right hip arthroplasty limits evaluation of the pelvic structures. Visualized uterus is unre markable. Calcified plaque the abdominal aorta without aneurysm. No adenopathy. There is no bowel obs truction or bowel wall thickening identified. Colonic diverticulosis without acute diverticulitis. Mi ld fecal retention. Visualized appendix is noninflamed. There are a few scattered small bowel air-flu id levels within the lower abdomen and pelvis. Mild diffuse subcutaneous edema. Demineralized appeara nce of the bones. Degenerative changes of the spine, pelvis and left hip. Anterolisthesis L4 on L5 an d L5 on S1 is likely secondary to long-standing facet arthropathy. Dextroscoliosis of the lumbar spin e. IMPRESSION: 1. No bowel obstruction or bowel wall thickening. 2. Colonic diverticulosis without acute diverticulitis. 3. A few scattered small bowel air-fluid levels are likely physiologic. A mild nonspecific enteritis could appear similarly. 4. Trace left pleural effusion with left lung base opacities suggestive of atelectasis/scarring. 5. Additional findings as above. ACT 112: Negative or not required by law. The above report was generated using voice recognition software. It may contain grammatical, syntax o r spelling errors. Electronically signed by: Sae Infante M.D. 03/24/2019 6:00 PM
--- NOTE | 2019-03-24 18:06 | Emergency Department Note ---
Entered by Larisa Albarran acting as a scribe for Prince Kelly M.D. History of Present Illness General Chief complaint: Rectal Bleed Stated complaint: NAUSEA Time Seen by Provider: 03/24/19 16:01 Source: patient History of Present Illness Provider complaint: nausea Onset (ago): day(s) (several) Pain Consistency: + other (worsening) Relieved By: not by medication Exacerbated By: + none Associated symptoms: + nausea/vomiting (+nausea, -vomiting), + weakness and + other (-abdominal pain, +dark red stool); no chest pain and no shortness of breath The patient is a 83 year old female who presents to the Emergency Room with com plaints of nausea for the past several days, which has worsened this morning. She notes that she usually takes nausea medication, but did not take it today. She reports that she has had dark red stool which started yesterday. She denies any abdominal pain, vomiting, chest pain, or shortness of breath. She states that she takes Coumadin, but they recently took it off it. She notes that she has been weak. The patients friend reports that the patient has been experiencing left lower extremity weakness. Home Medications Home Medications Medication Instructions Recorded Confirmed Type aspirin 81 mg PO QAM 01/23/18 02/20/19 History cholecalciferol (vitamin D3) 2,000 unit PO QAM 01/23/18 02/20/19 History [Vitamin D3] thiamine HCl (vitamin B1) 100 mg/kg PO DAILY 02/20/19 02/20/19 History warfarin [Coumadin] 2 mg PO DAILY 02/20/19 02/20/19 History amiodarone 200 mg PO DAILY #30 tab 03/03/19 Rx diltiazem HCl 30 mg PO TID 30 Days #90 tab 03/03/19 Rx metoprolol tartrate 25 mg PO BID 30 Days #60 tab 03/03/19 Rx quetiapine 25 mg PO Q4H PRN 30 Days #60 tab 03/03/19 Rx Allergies Allergy/AdvReac Type Severity Reaction Status Date / Time No Known Allergies Allergy Unverified 02/20/19 15:29 Past Med/Surg History Medical History Cardiac pacemaker Chronic kidney disease (CKD), stage IV (severe) HLD (hyperlipidemia) HTN (hypertension) Osteoporosis PAF (paroxysmal atrial fibrillation) pt admitted for elective ppm due to TBS; underwent procedure without any complications. her diltiazem was stopped and she was started on toprol and amiodarone; monitored overnight and discharged home. 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 her diltiazem was stopped and she was started on toprol and amiodarone; monitored overnight and discharged home. Surgical History History of total right hip arthroplasty Family History Other Unknown family medical history Social History Preferred Language: Hungarian Communication Ability: [facility] Shift [employer] Required: No marital status: Single Current Living Situation: Alone Current Living Situation Comment: In house with friend Feels Safe at Home: Yes Smoking Status: Never smoker Second Hand Exposure: No ; Hx Alcohol Use: No Hx Substance Use: No Review of Systems See HPI for pertinent positives & negatives. and A total of 10 systems reviewed and were otherwise negative Physical Exam Vital Signs Vital Signs - 24 hr 03/24/19 15:53 03/24/19 16:56 03/24/19 17:01 Temperature 36.7 C Temperature Source Oral Pulse Rate 64 Pulse Rate [Apical] 62 Respiratory Rate 18 18 Respiratory Effort / Characteristics Non-Labored Respiratory Depth Normal Blood Pressure 150/87 H Blood Pressure [Left Arm] 167/90 H Blood Pressure Mean 108 Blood Pressure Mean [Left Arm] 115 Pulse Oximetry 94 95 Oxygen Delivery Method Room Air Room Air Sepsis Recent Fever Within 48 Hours No Sepsis New/Unexplained Change in Mental Status No Sepsis Action Taken by Nursing No Action Required 03/24/19 18:12 Temperature Temperature Source Pulse Rate Pulse Rate [Apical] 60 Respiratory Rate 18 Respiratory Effort / Characteristics Respiratory Depth Blood Pressure Blood Pressure [Left Arm] 166/80 H Blood Pressure Mean Blood Pressure Mean [Left Arm] 108 Pulse Oximetry 97 Oxygen Delivery Method Room Air Sepsis Recent Fever Within 48 Hours Sepsis New/Unexplained Change in Mental Status Sepsis Action Taken by Nursing GENERAL: Awake, alert, fatigued appearing, in no distress HENT: Normocephalic, atraumatic EYES: Normal conjunctiva. Sclera non-icteric. RESPIRATORY: Clear to auscultation. No wheezes. Normal respiratory effort. CARDIAC: Normal rate. Normal rhythm. Extremities warm and well perfused. GI: Soft, non-distended. No tenderness to palpation. No rebound or guarding. RECTAL: Deferred. MUSCULOSKELETAL: Atraumatic. Chest examination reveals no tenderness. LOWER EXTREMITIES: Calves are equal size bilaterally and no edema RECTAL: RN present, hemoccult negative. NEURO: No sensory or motor deficits noted. No facial droop. No slurred speech. SKIN: Warm and dry. No rash or jaundice noted. Course Course 1603: The patient was evaluated in room C9, and a complete history and physical examination were performed. 1738: I reviewed the patient's case with Dr. [facility] Hospitalist. He will evaluate the patient for further management. Administered Medications Discontinued Medications Sodium Chloride (Nss) 500 mls @ 999 mls/hr IV .Q31M DARRYN Stop: 03/24/19 16:45 Last Infusion: 03/24/19 17:17 Dose: 0 mls/hr Documented by: [id number] Admin: 03/24/19 16:47 Dose: 999 mls/hr Documented by: [id number] Phytonadione 5 mg/ Sodium (Chloride) 50.5 mls @ 101 mls/hr IV ONE ONE Stop: 03/24/19 17:54 Last Admin: 03/24/19 18:14 Dose: 101 mls/hr Documented by: [id number] Ondansetron HCl (Zofran) 4 mg IV NOW STA Stop: 03/24/19 16:50 Last Admin: 03/24/19 16:59 Dose: 4 mg Documented by: [id number] Medical Decision Making Differential Diagnosis Differential diagnosis: Etiologies such as metabolic, infection, hypo/hyperglycemia, electrolyte abnormalities, cardiac sources, intracerebral event, toxicologic, neurologic, as well as others were entertained. Medical Records Attestation: I reviewed the patient's medical records. Home Medications Current Medication List: was personally reviewed by me Laboratory Data Attestation: I reviewed the patient's lab results. Result diagrams: 03/24/19 16:37 03/24/19 16:37 Lab Results 03/24/19 03/24/19 03/24/19 Range/Units 16:37 16:37 16:37 WBC 10.96 H (4.8-10.8) K/uL RBC 4.33 (4.2-5.4) M/uL Hgb 13.1 (12.0-16.0) g/dL Hct 40.0 (37-47) % MCV 92.4 (80-100) fL MCH 30.3 (25-34) pg MCHC 32.8 (32-36) g/dL RDW Std Deviation 58.4 H (36.4-46.3) fL RDW Coeff of Filiberto 17.4 H (11.5-14.5) % Plt Count 400 (130-400) K/uL MPV 9.0 (7.4-10.4) fL Immature Gran % (Auto) 6.2 % Neut % (Auto) 72.2 % Lymph % (Auto) 11.4 % [place] % (Auto) 7.8 % Eos % (Auto) 2.1 % Baso % (Auto) 0.3 % Immature Gran # (Auto) 0.68 H (0.00-0.02) K/uL Neut # (Auto) 7.92 H (1.4-6.5) K/uL Lymph # (Auto) 1.25 (1.2-3.4) K/uL [place] # (Auto) 0.85 H (0.11-0.59) K/uL Eos # (Auto) 0.23 (0-0.5) K/uL Baso # (Auto) 0.03 (0-0.2) K/uL PT 60.8 H (9.0-12.0) Seconds INR 6.8 H* (0.9-1.1) APTT 80.3 H* (21.0-31.0) Seconds PTT Ratio 3.0 Sodium 138 (136-145) mmol/L Potassium 4.5 (3.5-5.1) mmol/L Chloride 105 (98-107) mmol/L Carbon Dioxide 28 (21-32) mmol/L Anion Gap 5.0 (3-11) BUN 40 H (7-18) mg/dl Creatinine 1.82 H (0.6-1.2) mg/dl Est Cr Clr Drug Dosing Not Reportable Est GFR ( Amer) 29.3 Est GFR (Non-Af Amer) 25.2 BUN/Creatinine Ratio 21.7 H (10-20) Glucose 83 (70-99) mg/dl Calcium 8.5 (8.5-10.1) mg/dl Magnesium 2.1 (1.8-2.4) mg/dl Total Bilirubin 0.2 (0.2-1) mg/dl AST 22 (15-37) U/L ALT 29 (12-78) U/L Alkaline Phosphatase 93 (45-117) U/L Troponin I < 0.015 (0-0.045) ng/ml Total Protein 6.9 (6.4-8.2) gm/dl Albumin 2.8 L (3.4-5.0) gm/dl Globulin 4.1 H (2.5-4.0) gm/dl Albumin/Globulin Ratio 0.7 L (0.9-2) Lipase 265 (73-393) U/L Blood Type Antibody Screen 03/24/19 03/24/19 Range/Units 16:37 17:15 WBC (4.8-10.8) K/uL RBC (4.2-5.4) M/uL Hgb (12.0-16.0) g/dL Hct (37-47) % MCV (80-100) fL MCH (25-34) pg MCHC (32-36) g/dL RDW Std Deviation (36.4-46.3) fL RDW Coeff of Filiberto (11.5-14.5) % Plt Count (130-400) K/uL MPV (7.4-10.4) fL Immature Gran % (Auto) % Neut % (Auto) % Lymph % (Auto) % [place] % (Auto) % Eos % (Auto) % Baso % (Auto) % Immature Gran # (Auto) (0.00-0.02) K/uL Neut # (Auto) (1.4-6.5) K/uL Lymph # (Auto) (1.2-3.4) K/uL [place] # (Auto) (0.11-0.59) K/uL Eos # (Auto) (0-0.5) K/uL Baso # (Auto) (0-0.2) K/uL PT (9.0-12.0) Seconds INR (0.9-1.1) APTT (21.0-31.0) Seconds PTT Ratio Sodium (136-145) mmol/L Potassium (3.5-5.1) mmol/L Chloride (98-107) mmol/L Carbon Dioxide (21-32) mmol/L Anion Gap (3-11) BUN (7-18) mg/dl Creatinine (0.6-1.2) mg/dl Est Cr Clr Drug Dosing Est GFR ( Amer) Est GFR (Non-Af Amer) BUN/Creatinine Ratio (10-20) Glucose (70-99) mg/dl Calcium (8.5-10.1) mg/dl Magnesium (1.8-2.4) mg/dl Total Bilirubin (0.2-1) mg/dl AST (15-37) U/L ALT (12-78) U/L Alkaline Phosphatase (45-117) U/L Troponin I (0-0.045) ng/ml Total Protein (6.4-8.2) gm/dl Albumin (3.4-5.0) gm/dl Globulin (2.5-4.0) gm/dl Albumin/Globulin Ratio (0.9-2) Lipase (73-393) U/L Blood Type Cancelled A Positive Antibody Screen Cancelled NEGATIVE Imaging Data Radiologist's Impression: Radiology results as stated below per my review and the radiologist's interpretation: HEAD CT NONCONTRAST CT DOSE: HISTORY: Headaches. nausea, INR >8, gen weakness TECHNIQUE: Multiaxial CT images of the head were performed without the use of intravenous contrast. Automated exposure control was utilized for this study. A dose lowering technique was utilized adhering to the principles of ALARA. Comparison: Head CT 01/26/2019. Findings: Moderate mucosal thickening within the sphenoid sinuses which has improved. The mastoid air cells are clear. The calvarium and skull base are intact. There is no mass, hematoma, midline shift, acute infarct. White matter hypodensity is nonspecific but suggestive of moderate microvascular ischemic change. The ventricles and sulci demonstrate moderate age-related involutional changes. This remains unchanged. Impression: No significant change compared to the prior study. No acute intracranial abnormality. ACT 112: Negative or not required by law. Electronically signed by: Oscar Tomlinson M.D. 03/24/2019 5:21 PM ABDOMEN AND PELVIS CT WITHOUT CONTRAST CT DOSE: 882.61 mGy.cm HISTORY: Acute nausea with bloody stools nausea, elevated INR, ?bloody stools TECHNIQUE: Multiaxial CT images of the abdomen and pelvis were performed without contrast. A dose lowering technique was utilized adhering to the principles of ALARA. COMPARISON STUDY: Pelvis radiograph 03/03/2019 FINDINGS: Trace left pleural effusion with dependent subpleural left lung base consolidati on suggestive of atelectasis/scarring. Linear branching 5 mm nodular opacity of the basal left lower lobe is suggestive of mucous plugging. There is no pneumatosis or pneumoperitoneum. Cardiomegaly with partially imaged pacer leads. No large pericardial effusion. Limited evaluation of the solid abdominal organs without the use of IV contrast. Scattered calcified granulomata noted throughout the spleen. Mild generalized pancreatic atrophy. Indeterminate 7 mm cystic focus of the pancreatic neck, possibly reflective of a sidebranch IPMN, image 143 series 5. Unremarkable gallbladder. There are several hypodense foci in liver suggestive of probable cysts measuring up to 1.9 cm and the left hepatic lobe. Adrenal glands are within normal limits. Kidneys, and ureters are unremarkable. Mild nonspecific urinary bladder wall thickening. Streak artifact from right hip arthroplasty limits evaluation of the pelvic structures. Visualized uterus is unremarkable. Calcified plaque the abdominal aorta without aneurysm. No adenopathy. There is no bowel obstruction or bowel wall thickening identified. Colonic diverticulosis without acute diverticulitis. Mild fecal retention. Visualized appendix is noninflamed. There are a few scattered small bowel air-fluid levels within the lower abdomen and pelvis. Mild diffuse subcutaneous edema. Demineralized appearance of the bones. Degenerative changes of the spine, pelvis and left hip. Anterolisthesis L4 on L5 and L5 on S1 is likely secondary to long-standing facet arthropathy. Dextroscoliosis of the lumbar spine. IMPRESSION: 1. No bowel obstruction or bowel wall thickening. 2. Colonic diverticulosis without acute diverticulitis. 3. A few scattered small bowel air-fluid levels are likely physiologic. A mild nonspecific enteritis could appear similarly. 4. Trace left pleural effusion with left lung base opacities suggestive of atelectasis/scarring. 5. Additional findings as above. ACT 112: Negative or not required by law. The above report was generated using voice recognition software. It may contain grammatical, syntax or spelling errors. Electronically signed by: Sae Infante M.D. 03/24/2019 6:00 PM ECG Data Attestation: I personally reviewed and interpreted this ECG as follows: Indication: + weakness Rate (beats per minute): 60 Rhythm: + other (atrial paced) ECG Intervals/blocks: + Normal QRS ECG ST segments: no ST depression and no ST elevation ECG Findings: no PVCs Blood Pressure Blood Pressure Findings: Elevated blood pressure Blood Pressure Disposition: further management by hospitalist [facility] Narrative Patient is an 83-year-old female presenting here today with a complaint of rectal bleeding and an elevated INR. Endorses nausea. Patient on Coumadin for history of atrial fibrillation. Admitted here last month. Has had some issues with nausea taking nausea medicine at home without improvement. Decreased oral intake. Feeling weak and generally fatigued with nausea. Denies headache or abdominal pain or chest pain. States she is noted some red stool since yesterday. Elevated outpatient INR. Hemoccult here did not show significant amount of blood per rectum. Patient with some continued dizziness that has been ongoing. Per records it appears the patient has had some mild cognitive issues and there has been some issues with her medications. Given the elevated INR CT head was complete without acute intracranial pathology or bleeding. There is no trauma history. CT of the abdomen pelvis was completed without contrast given her history of renal dysfunction to exclude intra-abdominal pathology such as diverticulitis. Question some possible enteritis but no other acute findings. Given her reports of doubt upper GI bleed. BUN some improved today and creatinine some improved compared to previous. Hemoglobin appears stable. Plat elets normal. INR elevated here today at 6.8. I concerns about the patient's ability manage medications home with significantly elevated INR and her abdominal symptoms causing decreased intake, feel that further observation here in the hospital is warranted. Given a IV dose of vitamin K. A. fib appears rate controlled at this time. Did trial a dose of Zofran with the patient still endorses some nausea. Some improvement and patient wanted to try some crackers and water. [facility]. Impression & Plan Elevated INR, Weakness, Nausea, GI bleed Discharge Plan Visit Data Chief Complaint: Rectal Bleed Stated Complaint: NAUSEA ED Provider: Prince Kelly Discharge Problem: Elevated INR, Weakness, Nausea, GI bleed Patient Disposition: Being Evaluated by Hospitalist Forms Stand Alone Forms: My [facility] Prescriptions Prescriptions: No Action thiamine HCl (vitamin B1) 100 mg tablet 100 mg/kg PO DAILY RF: 0 warfarin [Coumadin] 2 mg tablet 2 mg PO DAILY RF: 0 quetiapine 25 mg Tablet 25 mg PO Q4H PRN (Reason: anxiety) 30 Days Qty: 60 RF: 0 diltiazem HCl 30 mg Tablet 30 mg PO TID 30 Days Qty: 90 RF: 0 metoprolol tartrate 25 mg Tablet 25 mg PO BID 30 Days Qty: 60 RF: 0 amiodarone 200 mg tablet 200 mg PO DAILY Qty: 30 RF: 0 aspirin 81 mg Tablet,Chewable 81 mg PO QAM RF: 0 cholecalciferol (vitamin D3) [Vitamin D3] 2,000 unit Tablet 2,000 unit PO QAM RF: 0 Referrals Referrals: Daylin Kelley MD [Primary Care Provider] - Discharge Problem: GI bleed Qualifiers: GI bleed type/associated pathology: unspecified gastrointestinal hemorrhage type Qualified Code(s): K92.2 - Gastrointestinal hemorrhage, unspecified The scribe's documentation has been prepared under my direction and personally reviewed by me in its entirety. I confirm that the note above accurately reflects all work, treatment, procedures, and medical decision making performed by me.
[2019-03-24 20:22] LABS: Appearance Urine Clear (Clear); Bilirubin Urine Negative (Negative); Blood Urine Negative (Negative); Color Urine Yellow; Glucose Urine UA Negative (Negative); Ketones Urine Negative (Negative); Leukocyte Esterase Urine Negative (Negative); Nitrite Urine Negative (Negative); Protein Urine Negative (Negative); Specific Gravity Urine 1.013 (1.000-1.030); Urobilinogen Urine Negative (Negative)
[2019-03-24] MEDS ORDERED: ACETAMINOPHEN 325 MG TAB PO PRN (20:37)
[2019-03-24] MEDS ORDERED: NITROGLYCERIN SL 0.4 MG/TAB TAB SL PRN (20:37)
[2019-03-24] MEDS ORDERED: ONDANSETRON INJ 2 MG/ML 2 ML VIAL IV PRN (20:37)
[2019-03-24] MEDS: SODIUM CHLORIDE 0.9% 1000ML 1,000 ML IV SCH (21:22)
[2019-03-24] MEDS: POLYETHYLENE (MIRALAX) 17 GM PACK PO SCH (21:22)
[2019-03-24] MEDS: METOPROLOL TARTRATE 25 MG TAB PO SCH (21:23)
[2019-03-24] MEDS: dilTIAZem HCL 30 MG TAB PO SCH (21:23)
[2019-03-24] MEDS: FAMOTIDINE 20 MG in SYRINGE 3 ML IV SCH (21:23)
--- NOTE | 2019-03-24 22:59 | History and Physical Report ---
DATE OF ADMISSION: 03/24/2019 CHIEF COMPLAINT: Nausea and questionable GI bleed. HISTORY OF PRESENT ILLNESS: This is an 83-year-old female with past medical history significant for hyperlipidemia, paroxysmal atrial fibrillation, tachybrady syndrome, status post pacemaker, on Coumadin, chronic kidney disease stage IV, hypertension, venous insufficiency, varicose veins of both legs, CVA, CAD, history of severe protein calorie malnutrition, senile osteoporosis, normal pressure hydrocephalus, cognitive dysfunction, anxiety disorder, who presents with nausea, questionable GI bleed. The patient was here in the hospital recently, was admitted on 02/20/2019 with rapid AFib and discharged on 03/04/2019. She was discharged on amiodarone, metoprolol, and Cardizem, and also Coumadin. During that hospitalization, she also had complications with delirium. The patient was discharged to [facility], but patient currently comes from home. Says she is living alone at home and recently again she was admitted to [facility] for nausea. At that time, she was sent home on walker. She is somewhat hard of hearing. She says she has good neighbors and a friend who helps her. She is not driving. She cooks her own food, but she just recently signed up for Meals on Wheels. On her medication list, she is on doxycycline, but the patient does not know why she is on doxycycline and she denies any infection or wounds. Today she was significantly nauseous, that is the reason she came here and recently her Coumadin dose was stopped on 03/21/2019 because her Coumadin level was greater than 8 and she says she had some question of pink or orange stool yesterday. Her Hemoccult test was not significant in the ER, her hemoglobin was stable at 13.1 and her INR was 6.8. One dose of IV vitamin K was given in the ER. Currently resting comfortable and hemodynamically stable. She also has chronic dizziness, but right now she does not have any dizziness. Denies any headache. No blurred visions. Hard of hearing. No earaches, no runny nose, no sore throat, no dysphagia, no chest pain, no shortness of breath, no abdominal pain. Currently feeling hungry and wants to eat. She says she has no hematuria. She was constipated, but with a stool softener that has improved now. Denies any swelling in the legs. Currently resting comfortable and hemodynamically stable. ALLERGIES: No known drug allergies. PAST MEDICAL HISTORY: As mentioned above. PAST SURGICAL HISTORY: Right total hip replacement. MEDICATIONS: The patient is on meclizine 25 mg p.o. t.i.d. p.r.n., Zofran 4 mg every 8 hours p.r.n., doxycycline 100 mg p.o. b.i.d., amiodarone 200 mg p.o. daily, aspirin 81 mg p.o. daily, vitamin D 2000 units p.o. daily, Cardizem 30 mg p.o. t.i.d., Lopressor 25 mg p.o. b.i.d., MiraLax 17 grams p.o. b.i.d., thiamine 100 mg p.o. daily, Coumadin as directed, Tylenol 650 mg p.o. q. 4 hours p.r.n. FAMILY HISTORY: Significant for mother at age of 72, father at 74. SOCIAL HISTORY: Currently , lives alone. No smoking, no alcohol, no drug use. REVIEW OF SYSTEMS: As per HPI. Rest of review of systems negative. PHYSICAL EXAMINATION: GENERAL: The patient is of moderate build, not in acute distress. VITAL SIGNS: Temperature 36.7, pulse 60, respiratory rate 18, blood pressure 166/80, oxygen 97% on room air. HEENT: No pallor, no icterus. Pupils equal, round, and reactive to light. NECK: No JVD, no neck masses, no carotid bruits. CARDIOVASCULAR: S1, S2 heard, regular rate and rhythm, no murmur, no gallop. RESPIRATORY SYSTEM: Normal AP diameter. No accessory muscle use. No wheezing, no crackles. ABDOMEN: Soft, bowel sounds present, nontender. No distention. CENTRAL NERVOUS SYSTEM: Alert and oriented. Obeys simple commands. Moves extremities. Nonfocal. EXTREMITIES: No edema seen. Moves extremities. LABORATORY DATA: WBC 10.9, hemoglobin 13.1, hematocrit 40, platelets 400. PT 60.8, INR 6.8, APTT 80.3. Sodium 138, potassium 4.5, chloride 105, bicarbonate 28, BUN 40, creatinine 1.8, serum glucose 83, calcium 8.5, magnesium 2.1, total bilirubin 0.2, AST 22, ALT 29, alkaline phosphatase 93. Troponin I less than 0.015. Lipase 265. IMAGING DATA: CT of abdomen and pelvis, no bowel obstruction or bowel wall thickening. Colonic diverticulosis without acute diverticulitis, a few scattered small bowel air fluid levels are likely physiological, mild nonspecific enteritis could appear similarly. Trace left pleural effusion with left lung base opacity suggestive of atelectasis. IMAGING DATA: CT of the head, no acute intracranial abnormalities seen. No change from prior CT scan. EKG: Atrial paced rhythm with prolonged AV conduction at rate of 60. ASSESSMENT AND PLAN: This is an 83-year-old female who presents with persistent nausea and questionable gastrointestinal bleed. 1. Persistent nausea, Zofran had helped. Could be from her doxycycline, which we will hold or could be from the new medications, which she started last admission. The patient currently nausea improved and eating. We will place her n.p.o. after midnight. Consult GI in the a.m. for further recommendations. We will observe in the hospital. Gentle fluids. 2. Questionable gastrointestinal bleed. The patient saw some pink or orange stool yesterday, but her Hemoccult was not significant in the ER. Her hemoglobin was stable at 13.1, but her INR is 6.8. Received IV vitamin K. We will follow Hemoccult stool and follow the repeat labs in a.m. We will place on IV Pepcid b.i.d., hold Coumadin and aspirin. Consult GI in the a.m. for further recommendation. 3. History of atrial fibrillation, recent admission for rapid atrial fibrillation. Continue her amiodarone, Lopressor, and Cardizem. Holding aspirin and Coumadin as above. Restart when okay with GI. 4. Chronic dizziness. Just recently saw neurology and Antivert p.r.n. No driving. 5. History of tachybrady syndrome, status post pacemaker. Follow with cardiology. 6. Chronic kidney disease stage IV. Baseline creatinine 1.5-1.7, currently creatinine is 1.8. We will follow the repeat labs in a.m. 7. Deep venous thrombosis prophylaxis. INR is supratherapeutic. Currently Coumadin on hold. Sequential compression devices. CODE STATUS: Full code. DISPOSITION: Observe in med/surg tele. PT and OT prior to discharge. Social service to help with discharge planning. [facility]
[2019-03-25 05:37] LABS: Basophils # (auto) 0.03 K/uL (0-0.2); Basophils % (auto) 0.3 %; Eosinophils # (auto) 0.38 K/uL (0-0.5); Eosinophils % (auto) 4.2 %; Hematocrit (blood only) 37.1 % (37-47); Hemoglobin 12.3 g/dL (12.0-16.0); Immature Granulocytes # (auto) 0.44 K/uL (0.00-0.02); Immature Granulocytes % (auto) 4.8 %; Lymphocytes # (auto) 1.23 K/uL (1.2-3.4); Lymphocytes % (auto) 13.5 %; Mean Corpuscular Hemoglobin 29.9 pg (25-34); Mean Corpuscular Hgb Conc 33.2 g/dL (32-36); Mean Corpuscular Volume 90.3 fL (80-100); Mean Platelet Volume 8.7 fL (7.4-10.4); Monocytes # (auto) 0.78 K/uL (0.11-0.59); Monocytes % (auto) 8.6 %; Neutrophils # (auto) 6.22 K/uL (1.4-6.5); Neutrophils % (auto) 68.6 %; Platelet Count 401 K/uL (130-400); RDW Coefficient of Variation 17.1 % (11.5-14.5); RDW Standard Deviation 56.4 fL (36.4-46.3); Red Blood Count 4.11 M/uL (4.2-5.4); White Blood Count 9.08 K/uL (4.8-10.8)
[2019-03-25 05:45] LABS: INR 1.5 (0.9-1.1); Prothrombin Time 15.3 Seconds (9.0-12.0)
[2019-03-25 06:00] LABS: BUN Creatinine Ratio 23.1 (10-20); Calcium 8.1 mg/dl (8.5-10.1); Creatinine Clr Calc Pharmacy 18.7 ml/min; Est GFR (African American) 37.9; Est GFR (Non-African American) 32.7; Potassium 4.5 mmol/L (3.5-5.1)
[2019-03-25] MEDS: PSYLLIUM 58.6% POWDER PACKET PO SCH (07:58)
[2019-03-25] MEDS: POLYETHYLENE (MIRALAX) 17 GM PACK PO SCH ×2 (07:58→21:40)
[2019-03-25] MEDS: dilTIAZem HCL 30 MG TAB PO SCH ×3 (08:05→21:40)
[2019-03-25] MEDS: AMIODARONE 200 MG TAB PO SCH (08:05)
[2019-03-25] MEDS: THIAMINE HCL 100 MG TAB PO SCH (08:06)
[2019-03-25] MEDS: METOPROLOL TARTRATE 25 MG TAB PO SCH ×2 (08:06→21:37)
[2019-03-25] MEDS: FAMOTIDINE 20 MG in SYRINGE 3 ML IV SCH ×2 (08:12→21:20)
--- NOTE | 2019-03-25 08:26 | Gastrointestinal Consultation ---
Date of Consultation March 25, 2019 Assessment & Plan (1) Nausea: Suspect related to doxycycline as holding this medication seems to have provided relief. Amiodorone can also cause nausea in 10 - 33% of patients. Because she is doing much better, would allow to eat a regular consistency diet and would defer endoscopy. Present on Admission?: Yes (2) GI bleed: Because pt feels well and Hb is normal, doubt that she experienced a GI bleed. She reports having used an orange fiber supplement which may explain the orange BM. Hb is 12.3, down from 14 on arrival. No BMs have been documented since arrival but pt reports passing a brown BM this morning. Would defer colonoscopy at this time but would consider if gross GI bleeding and further, significant drop in Hb/Hct occur. OK for regular diet. GI will sign off. Please notify us if any new/worsening GI symptoms. Present on Admission?: Yes Supervising Physician Co-Signing Physician Notes I have personally seen and examined the patient with ANGIE Townsend. Her note reflects my exam and findings. I agree with her impression and plan. I do not think an endoscopy would add to her care at this point. Amiodarone may be causing some of her nausea.I would put her on a daily PPI if starting anticoagulation. Danny Horowitz M.D. History of Present Illness Reason for Consultation: Dr. Christian Requesting Physician: Dr. Evans Attending Physician: Sergey Evans MD History of Present Illness Ms. Pattie Mccurdy is an 83 yr old female pt of Dr. Kelley with a hx of HTN, Venous insufficiency, CVA, CAD, Paroxysmal A-Fib with pacer, on Coumadin, CKD4, chronic kidney, cognitive dysfunction and anxiety. She lives alone and was brought to the ED by friends with patient report of nausea and having passed a pink or orange BM. On arrival, Hb 13-12.3. BUN 40->34. CT abd/pelvis with IV contrast with suggestion of mild enteritis. She tells me that she has had nausea and that today, she is "much better." She denies any abdominal pain, vomiting, constipation or diarrhea. She denies any blood in her BMs. She states that she bought an orange fiber supplement and had one loose orange BM after taking that. Denies any weight loss. A review of her H&P states that she was recently prescribed amiodarone for A-fib with RVR and doxycycline. The doxycycline was DC'ed on admissionl. Allergies Allergy/AdvReac Type Severity Reaction Status Date / Time No Known Allergies Allergy Unverified 03/24/19 18:36 Home Medications Home Medications Medication Instructions Recorded Confirmed Type aspirin 81 mg PO QAM 01/23/18 03/24/19 History cholecalciferol (vitamin D3) 2,000 unit PO QAM 01/23/18 03/24/19 History [Vitamin D3] thiamine HCl (vitamin B1) 100 mg PO DAILY 02/20/19 03/24/19 History amiodarone 200 mg PO DAILY #30 tab 03/03/19 03/24/19 Rx diltiazem HCl 30 mg PO TID 30 Days #90 tab 03/03/19 03/24/19 Rx metoprolol tartrate 25 mg PO BID 30 Days #60 tab 03/03/19 03/24/19 Rx acetaminophen 650 mg PO Q4 PRN 03/24/19 03/24/19 History doxycycline hyclate 100 mg PO BID 03/24/19 03/24/19 History ondansetron HCl [Zofran] 4 mg PO Q6H PRN 03/24/19 03/24/19 History polyethylene glycol 3350 [Miralax] 17 g PO BID 03/24/19 03/24/19 History psyllium husk [Metamucil] 0.4 g PO DAILY 03/24/19 03/24/19 History warfarin 0 mg PO .ONHOLD 03/24/19 03/24/19 History Patient History Medical History Cardiac pacemaker Chronic kidney disease (CKD), stage IV (severe) HLD (hyperlipidemia) HTN (hypertension) Osteoporosis PAF (paroxysmal atrial fibrillation) pt admitted for elective ppm due to TBS; underwent procedure without any complications. her diltiazem was stopped and she was started on toprol and amiodarone; monitored overnight and discharged home. 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 her diltiazem was stopped and she was started on toprol and amiodarone; monitored overnight and discharged home. Surgical History History of total right hip arthroplasty Family History Other Unknown family medical history Social History Preferred Language: Brazilian Communication Ability: Effective Senior Staff Consultant Required: No Beliefs That Will Affect Care: None marital status: Single Current Living Situation: Alone Current Living Situation Comment: In house with friend Feels Safe at Home: Yes Safety Concerns: Feels Safe At This Time Smoking Status: Never smoker Second Hand Exposure: No ; Hx Alcohol Use: No Hx Substance Use: No Review of Systems Review of Systems: ROS: Gen: Denies weakness, fevers, weight loss Eyes: No eye redness, or pain, no recent vision changes Resp: No SOB, no cough Cardio: No palpitations/irregular beats, no chest pain GI: See HPI : Denies pain on urination Skin: No jaundice, itching or new rashes Physical Exam Constitutional: WD/WN, vitals as above Eyes: PERRL, conjunctivae normal, anicteric sclerae ENMT: external ear and nose normal, oropharynx normal Neck: trachea midline, no thyromegaly Respiratory: normal respiratory effort, lungs clear to auscultation Cardiovascular: RRR, no murmur, no edema Gastrointestinal (Abdomen): normal bowel sounds, soft, nontender, no hepatosplenomegaly Musculoskeletal: hand joint deformities suggestive of rheumatoid arthritis or advanced osteoarthritis. Skin: no rashes, warm and dry Neurologic: PERRL, EOMI, accommodation nl, no face palsy, no dysarthria Psychiatric: A+Ox3, euthymic affect Lymphatic: no cervical or axillary lymphadenopathy Results & Data Vital Signs (Past 12 Hours) Vital Signs Temp Pulse Pulse Pulse Resp BP BP 03/25/19 08:05 67 03/25/19 08:00 36.8 C 59 L 18 184/96 H 03/25/19 07:10 60 03/25/19 04:21 36.4 C L 61 18 168/88 H 03/24/19 23:26 36.4 C L 60 16 159/81 H 03/24/19 21:45 60 Pulse Ox 03/25/19 08:05 03/25/19 08:00 96 03/25/19 07:10 03/25/19 04:21 94 03/24/19 23:26 94 03/24/19 21:[address] abd/pelvis with IV contrast 03/24/19: 1. No bowel obstruction or bowel wall thickening. 2. Colonic diverticulosis without acute diverticulitis. 3. A few scattered small bowel air-fluid levels are likely physiologic. A mild nonspecific enteritis could appear similarly. 4. Trace left pleural effusion with left lung base opacities suggestive of atelectasis/scarring. 5. Additional findings as above. (1) GI bleed GI bleed type/associated pathology: unspecified gastrointestinal hemorrhage type Qualified Code(s): K92.2 - Gastrointestinal hemorrhage, unspecified
--- NOTE | 2019-03-25 11:45 | Electrocardiogram Report ---
Test Reason : Blood Pressure : / mmHG Vent. Rate : 060 BPM Atrial Rate : 060 BPM P-R Int : 226 ms QRS Dur : 066 ms QT Int : 440 ms P-R-T Axes : 098 013 062 degrees QTc Int : 440 ms Atrial-paced rhythm with prolonged AV conduction Low voltage QRS Cannot rule out Anterior infarct , age undetermined Abnormal ECG When compared with ECG of 23-FEB-2019 07:22, Significant changes have occurred Confirmed by Vinny Guillaume ([id number]) on 03/25/2019 11:45:15 AM Referred By: REFERRED SELF Confirmed By:Vinny Guillaume
--- NOTE | 2019-03-25 12:24 | Hospitalist Progress Note ---
Date of Service delayed entry date of service noted below March 25, 2019 Assessment & Plan (1) GI bleed: ASSESSMENT AND PLAN: This is an 83-year-old female who presents with persistent nausea and questionable gastrointestinal bleed. 1. Persistent nausea -- Could be from her doxycycline, HELD patient not certain why she was taking doxycycline -- reports nausea has resolved -- from amiodarone? outpatient records from coumadin clinic reveal patient was still taking coumadin when she was advised to hold it for INR > 8 question whether patient was taking correct dose of amiodarone -- GI consulted: no plans for EGD -- diet resumed, monitor 2. Questionable gastrointestinal bleed. -- per admitting MD: The patient saw some pink or orange stool yesterday, but her Hemoccult was not significant in the ER. Her hemoglobin was stable at 13.1, but her INR is 6.8. Received IV vitamin K. -- Hg 13 --> 12 INR 6.8 to 1.5 after IV Vitamin K -- no BM nor recurrence of bleed as per patient -- GI consulted: EGD does not recommend Colonoscopy -- diet resumed, monitor -- management of anticoagulation noted below 3. History of atrial fibrillation, recent admission for rapid atrial fibrillation, on Coumadin --rate controlledn Continue her amiodarone, Lopressor, and Cardizem. -- INR >8 for several days leading up to hospitalization outpatient records from coumadin clinic reveal patient admitted that she was still taking coumadin despite being advised to hold it -- patient appears to have progression of dementia, and is not able to manage her medications properly, independently lives at home with her significant other who also has dementia -- will consult Cardiology to evaluate patient's continuation of intermediate anticoagulation Cognitive Dysfunction -- confirmed with Bella- daughter of patient's significant other, that patient is forgetful, occasionally with tangential thoughts at baseline -- appears patient has progression of dementia -- showing signs of delirium at around 7pm walked up to RN station, very agitated, adamantly demanding to go home, but appears confused Haldol not recommended as patient is on Amiodarone, Ativan given, patient improved -- may need to transition to supervised setting Assisted Living vs SNF as patient appears that she is not capable of managing her medications independently 4. Chronic dizziness. Followed up with neurology and Antivert p.r.n. No driving. 5. History of tachybrady syndrome, status post pacemaker. 6. Chronic kidney disease stage IV. Baseline creatinine 1.5-1.7 at baseline 7. Deep venous thrombosis prophylaxis. INR 1.5 SCDs only in lght of suspected GI bleed CODE STATUS: Full code. DISPOSITION: lives at home with significant other who has dementia -- may need to transition to supervised setting Assisted Living vs SNF as patient appears that she is not capable of managing her medications independently Subjective ff up for possible rectal bleed, elevated INR seen sitting up in bed, not in distress but anxious repeatedly saying she wants to go home because she is scared of being in the hospital "alone" answers most questions appropriately but noted to be forgetful, at one point was saying, "when will your father arrive here to check me?" RN also confirms patient showing signs of confusion this AM suggested that somebody will be with her in her room (1:1 observation) ,patient agrees to stay in the hospital denies BM since admission no abdominal pain, nausea no chest pain, dyspnea, palpitations, dizziness no other symptoms Review of Systems Review of Systems: All systems reviewed & are unremarkable except as noted in HPI & below Physical Exam Physical Exam: General- oriented x 2 but occasionally confused, not in distress, speaks in sentences with no effort or accessory muscle use; anxious Head- atraumatic Eyes- PERRL, EOMI, anicteric ENT- oropharynx clear Neck- supple, no JVD, no adenopathy, no thyromegaly; carotids +2/2, no bruits appreciated Lungs- clear to auscultation bilaterally, no rales/wheezes Heart- normal rate, regular rhythm; no murmur, no gallop, no rub appreciated Abdomen- normal bowel sounds, nondistended, soft, nontender, no masses or hepatosplenomegaly Extremities- no pretibial edema, no calf tenderness; peripheral pulses intact Neuro- alert, oriented x 2 but occasionally confused; CN 2-12 grossly intact; motor 5/5 bilaterally;sensation 100% on all extremities; no other gross focal neurologic deficits Skin- warm & dry Results & Data ([facility]) Vital Signs (Past 12 Hours) Vital Signs Temp Pulse Pulse Pulse Resp BP Pulse Ox 03/25/19 11:32 36.5 C 69 18 164/89 H 95 03/25/19 10:21 173/85 H 03/25/19 08:05 67 03/25/19 08:00 36.8 C 59 L 18 184/96 H 96 03/25/19 07:10 60 03/25/19 04:21 36.4 C L 61 18 168/88 H 94 Laboratory Results all noted and reviewed (1) GI bleed GI bleed type/associated pathology: unspecified gastrointestinal hemorrhage type Qualified Code(s): K92.2 - Gastrointestinal hemorrhage, unspecified
[2019-03-25] MEDS: SODIUM CHLORIDE 0.9% 1000ML 1,000 ML IV SCH (16:47)
[2019-03-25] MEDS ORDERED: LORazepam 0.5 MG/1 ML VIAL IV STA (18:25)
[2019-03-26 06:26] LABS: INR 1.2 (0.9-1.1); Prothrombin Time 12.2 Seconds (9.0-12.0)
[2019-03-26] MEDS: METOPROLOL TARTRATE 25 MG TAB PO SCH (09:03)
[2019-03-26] MEDS: AMIODARONE 200 MG TAB PO SCH (09:04)
[2019-03-26] MEDS: THIAMINE HCL 100 MG TAB PO SCH (09:04)
[2019-03-26] MEDS: dilTIAZem HCL 30 MG TAB PO SCH ×2 (09:04→13:45)
[2019-03-26] MEDS: POLYETHYLENE (MIRALAX) 17 GM PACK PO SCH (09:07)
[2019-03-26] MEDS: PSYLLIUM 58.6% POWDER PACKET PO SCH (09:08)
[2019-03-26] MEDS: FAMOTIDINE 20 MG in SYRINGE 3 ML IV SCH (09:10)
[2019-03-26] MEDS ORDERED: WARFARIN SOD 5 MG TAB PO ONE (09:30)
--- NOTE | 2019-03-26 11:01 | Cardiology Consultation ---
Date of Consultation March 26, 2019 Assessment & Plan (1) Elevated INR: (2) Nausea: (3) PAF (paroxysmal atrial fibrillation): (4) HTN (hypertension): (5) Dizziness: (6) Chronic kidney disease (CKD), stage IV (severe): (7) Cardiac pacemaker: (8) Tachy-jacque syndrome: The patient was admitted to the hospital on Sunday, March 24, 2019 with persistent nausea and questionable GI bleeding. Her nausea has resolved following discontinuation of doxycycline. She was evaluated by GI who doubted a GI bleed and felt that EGD and/or colonoscopy were not needed at this time. Cardiology consultation was requested by Dr. Evans today to "evaluate patient's continuation of long-term anticoagulation." Chart review reveals that the patient has paroxysmal atrial fibrillation with a [id number] Score of 7 points (83 year old female with a history of hypertension, TIA/CVA, and carotid plaque). The patient is a very poor historian. She was not able to provide any reliable information to the undersigned today. She has obvious, documented, issues managing Coumadin anticoagulation. Concern has been raised by her PCP, [facility] Pharmacist, and [employer] regarding ongoing use of anticoagulation. She has ambulatory dysfunction and has fallen in the past. Her HAS-BLED and [id number] Scores both reveal a high risk for major bleeding. She does not plan to leave her home. Options of management discussed with the patient including continued use of Coumadin, alternative agents such as reduced dosed Eliquis (2.5 mg twice per day given her age, body weight, and renal dysfunction), and discontinuation of anticoagulation. Given all the above information, the risks of anticoagulation currently appear to be greater than the benefit. Supervising Physician Co-Signing Physician Notes Supervising Physician Attestation: I have personally performed a history and physical examination on the patient. I agree with the physician printer assistant's findings and plan as documented with the following additions. Subjective: Patient seen and examined. Nauseousness improved. Exam: Regular rhythm Data: EKG performed 03/24/2019 reveals sinus rhythm with atrial pacing Assessment and Plan: Agree that patient is at high risk for cardioembolic stroke given her history of paroxysmal atrial fibrillation, as well as high risk for bleeding complication. INR on presentation was 6.8. She has had issues with difficulty with Coumadin. I think even with consideration of treatment with a direct oral anticoagulant her bleeding risk would be high. Agree with holding off on systemic anticoagulation at present. Would be reasonable to place her on low-dose aspirin given her history of vascular disease however the most recent treatment guidelines state that the prophylactic benefit of aspirin for use of preventing stroke in the setting of paroxysmal atrial fibrillation is negligible. Александр Saleem, DO History of Present Illness Reason for Consultation: "Evaluate patient's continuation of long-term anticoagulation." Requesting Physician: Nathan Attending Physician: Issa Coley MD History of Present Illness The patient was admitted to the hospital on Sunday, March 24, 2019 with pe rsistent nausea and questionable GI bleeding. Her nausea has resolved following discontinuation of doxycycline. She was evaluated by GI who doubted a GI bleed and felt that EGD and/or colonoscopy were not needed at this time. Cardiology consultation was requested by Dr. Evans today to "evaluate patient's continuation of long-term anticoagulation." Allergies Allergy/AdvReac Type Severity Reaction Status Date / Time No Known Allergies Allergy Unverified 03/24/19 18:36 Home Medications Home Medications Medication Instructions Recorded Confirmed Type aspirin 81 mg PO QAM 01/23/18 03/24/19 History cholecalciferol (vitamin D3) 2,000 unit PO QAM 01/23/18 03/24/19 History [Vitamin D3] thiamine HCl (vitamin B1) 100 mg PO DAILY 02/20/19 03/24/19 History amiodarone 200 mg PO DAILY #30 tab 03/03/19 03/24/19 Rx diltiazem HCl 30 mg PO TID 30 Days #90 tab 03/03/19 03/24/19 Rx metoprolol tartrate 25 mg PO BID 30 Days #60 tab 03/03/19 03/24/19 Rx acetaminophen 650 mg PO Q4 PRN 03/24/19 03/24/19 History doxycycline hyclate 100 mg PO BID 03/24/19 03/24/19 History ondansetron HCl [Zofran] 4 mg PO Q6H PRN 03/24/19 03/24/19 History polyethylene glycol 3350 [Miralax] 17 g PO BID 03/24/19 03/24/19 History psyllium husk [Metamucil] 0.4 g PO DAILY 03/24/19 03/24/19 History warfarin 0 mg PO .ONHOLD 03/24/19 03/24/19 History Patient History Medical History (Updated 03/26/19 @ 11:07 by Piero Bruno) Cardiac pacemaker Chronic kidney disease (CKD), stage IV (severe) HLD (hyperlipidemia) HTN (hypertension) Osteoporosis PAF (paroxysmal atrial fibrillation) pt admitted for elective ppm due to TBS; underwent procedure without any complications. her diltiazem was stopped and she was started on toprol and amiodarone; monitored overnight and discharged home. 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 her diltiazem was stopped and she was started on toprol and amiodarone; monitored overnight and discharged home. Surgical History History of total right hip arthroplasty Family History Other Unknown family medical history Social History Preferred Language: Setswana Communication Ability: Effective Sparker [employer] Patcher Required: No Beliefs That Will Affect Care: None marital status: Life Partner Current Living Situation: Alone Current Living Situation Comment: In house with friend Feels Safe at Home: Yes Safety Concerns: Feels Safe At This Time Smoking Status: Never smoker Second Hand Exposure: No ; Hx Alcohol Use: No Hx Substance Use: No Review of Systems Review of Systems: Unobtainable due to cognitive status Physical Exam Physical Exam: General: Alert to person and place but not to time. NAD. HEENT: Normocephalic. Atraumatic. PER. Conjunctiva pink, sclera clear. Neck: Bilateral carotid bruits. No JVD. No HJR. Heart: Regular at 64 bpm. Grade II/ systolic murmur. No rub. No gallop. PMI is nondisplaced. Lungs: Clear to auscultation. Abdomen: +BS. Soft. Nontender. No masses or organomegaly. Extremities: No clubbing, cyanosis, or edema. Limited neurological examination is without focal deficits. Pulses: radial=2/4, posterior tibial=1/4. Results & Data Vital Signs (Past 12 Hours) Vital Signs Temp Pulse Pulse Resp BP Pulse Ox 03/26/19 09:15 64 03/26/19 07:44 37.0 C 58 L 18 159/84 H 96 03/26/19 03:31 36.6 C 58 L 20 146/82 H 93 03/26/19 00:06 60 03/25/19 23:46 59 L 16 159/88 H 96 Laboratory Results Laboratory Results - last 24 hr 03/26/19 05:36 PT 12.2 H INR 1.2 H Diagnostic Findings February 21, 2019 TTE interpretation summary ([facility], Dr. Solis): Mild aortic valve sclerosis without significant stenosis. Normal size left ventricle. Normal LV wall thickness. Normal LV systolic function. EF 60 to 65%. Normal RV systolic function. Normal left atrial size. Normal right atrial size. No significant valvular pathology. March 24, 2019 EKG revealed an atrial paced rhythm with prolonged AV conduction. Low voltage QRS. Cannot rule out an old anterior infarct. QTC 440 ms. Continuous telemetry monitoring reveals a paced rhythm in the 60s.
--- NOTE | 2019-03-26 15:21 | Hospitalist Progress Note ---
Date of Service March 26, 2019 Assessment & Plan (1) GI bleed: ASSESSMENT AND PLAN: This is an 83-year-old female who presents with persistent nausea and questionable gastrointestinal bleed and found to have elevated INR Persistent nausea - Could be from her doxycycline as outpatient, patient not certain why she was taking doxycycline - nausea has resolved -Stop coumadin (warfarin) at home. No apparent indication for doxycycline (stop this antibiotic) at home. recommend bringing home medications to clinics to verify necessity Scheduled appointments 03/28/2019 10:30 AM Provider Pacer Clinic [facility] Department Cardiology, [facility] 03/28/2019 6:20 PM Provider Mtm Clinic [facility] Department Pharmacy, [facility] 03/31/2019 2:00 PM Provider Jayda Lara, MARÍA Department [facility] 04/01/2019 1:00 PM Provider Daylin Kelley MD Department Internal Medicine [facility] 04/09/2019 2:00 PM Provider Gilberto Muller MD Department Cardiology, [facility] 04/10/2019 2:00 PM Provider Lucero Guo RDN Department Nutrition, [facility] Chronic dizziness -Followed up with neurology and Antivert p.r.n. gastrointestinal bleed was suspected and ruled out -per admitting MD: The patient saw some pink or orange stool at home, but her Hemoccult was not significant in the ER. Her hemoglobin was stable at 13.1, but her INR is 6.8. Received IV vitamin K on admission -Gastroenterology was consulted and deferred any invasive scoping Hemoglobin 12.4 on 03/25/2019 and INR 1.2 on 03/26/2019, 5 mg coumadin given on 03/26/2019, but Cardiology service recommended against further coumadin ("Her HAS- BLED and [id number] Scores both reveal a high risk for major bleeding") History of tachybrady syndrome History of atrial fibrillation -has pacemaker -Continuous telemetry monitoring reveals a paced rhythm in the 60s -Continue her amiodarone, Lopressor, and Cardizem. Chronic kidney disease stage IV -stable renal function Cognitive Dysfunction -previous hospitalist had confirmed with Bella- daughter of patient's significant other, that patient is forgetful, occasionally with tangential thoughts at baseline -concerns for dementia of the patient is raised, and patient lives at home with significant other who has dementia. however, as per case management there are no placement services that can be offered -discharge to home under care of her significant other's family member and spring encaser arranged services and [facility] to be involved on outpatient basis Discharge Diagnosis Nausea, Elevated INR, History of atrial fibrillation, gastrointestinal bleed was suspected and ruled out Subjective Patient is cooperative on exam. she is not in distress. she is able to use the phone to speak with her friends. she was seen able to ambulate to bathroom. breathing comfortably. speaking in full sentences. no nausea. no dizziness. no vomiting. denies pain. no shortness of breath.The daughter of patient's sign janine other is in the hospital at bedside. hospitalist and review consultant went through hospital course and outpatient medical plans. restaurant kitchen and service manager went to see patient to address discharge needs. Review of Systems Review of Systems: All systems reviewed & are unremarkable except as noted in HPI & below Physical Exam Constitutional: WD/WN, vitals as above comfortable Eyes: PERRL, conjunctivae normal, anicteric sclerae EOM intact bilaterally ENMT: external ear and nose normal, oropharynx normal Neck: trachea midline, no thyromegaly normal visual inspection Respiratory: normal respiratory effort, lungs clear to auscultation Cardiovascular: Rate/Rhythm: + bradycardic Gastrointestinal (Abdomen): normal bowel sounds, soft, nontender, no hepatosplenomegaly Musculoskeletal: Head/Neck/Chest: normocephalic Neurologic: PERRL, EOMI, accommodation nl, no face palsy, no dysarthria moves all extremities Psychiatric: Orientation: alert and cooperative Results & Data ([facility]) Vital Signs (Past 12 Hours) Vital Signs Temp Pulse Resp BP BP Pulse Ox 03/26/19 14:53 36.6 C 67 20 147/80 H 93 03/26/19 11:05 36.6 C 63 20 149/79 H 95 03/26/19 09:15 64 03/26/19 07:44 37.0 C 58 L 18 159/84 H 96 03/26/19 03:31 36.6 C 58 L 20 146/82 H 93 (1) GI bleed GI bleed type/associated pathology: unspecified gastrointestinal hemorrhage type Qualified Code(s): K92.2 - Gastrointestinal hemorrhage, unspecified
--- NOTE | 2019-03-26 15:38 | Discharge Summary ---
Date of Service March 26, 2019 Admission HPI Per Admitting Provider DATE OF ADMISSION: 03/24/2019 CHIEF COMPLAINT: Nausea and questionable GI bleed. HISTORY OF PRESENT ILLNESS: This is an 83-year-old female with past medical history significant for hyperlipidemia, paroxysmal atrial fibrillation, tachybrady syndrome, status post pacemaker, on Coumadin, chronic kidney disease stage IV, hypertension, venous insufficiency, varicose veins of both legs, CVA, CAD, history of severe protein calorie malnutrition, senile osteoporosis, normal pressure hydrocephalus, cognitive dysfunction, anxiety disorder, who presents with nausea, questionable GI bleed. The patient was here in the hospital recently, was admitted on 02/20/2019 with rapid AFib and discharged on 03/04/2019. She was discharged on amiodarone, metoprolol, and Cardizem, and also Coumadin. During that hospitalization, she also had complications with delirium. The patient was discharged to [facility], but patient currently comes from home. Says she is living alone at home and recently again she was admitted to [facility] for nausea. At that time, she was sent home on walker. She is somewhat hard of hearing. She says she has good neighbors and a friend who helps her. She is not driving. She cooks her own food, but she just recently signed up for [employer] Wheels. On her medication list, she is on doxycycline, but the patient does not know why she is on doxycycline and she denies any infection or wounds. Today she was significantly nauseous, that is the reason she came here and recently her Coumadin dose was stopped on 03/21/2019 because her Coumadin level was greater than 8 and she says she had some question of pink or orange stool yesterday. Her Hemoccult test was not significant in the ER, her hemoglobin was stable at 13.1 and her INR was 6.8. One dose of IV vitamin K was given in the ER. Currently resting comfortable and hemodynamically stable. She also has chronic dizziness, but right now she does not have any dizziness. Denies any headache. No blurred visions. Hard of hearing. No earaches, no runny nose, no sore throat, no dysphagia, no chest pain, no shortness of breath, no abdominal pain. Currently feeling hungry and wants to eat. She says she has no hematuria. She was constipated, but with a stool softener that has improved now. Denies any swelling in the legs. Currently resting comfortable and hemodynamically stable. Admission Exam Per Admitting Provider GENERAL: The patient is of moderate build, not in acute distress. VITAL SIGNS: Temperature 36.7, pulse 60, respiratory rate 18, blood pressure 166/80, oxygen 97% on room air. HEENT: No pallor, no icterus. Pupils equal, round, and reactive to light. NECK: No JVD, no neck masses, no carotid bruits. CARDIOVASCULAR: S1, S2 heard, regular rate and rhythm, no murmur, no gallop. RESPIRATORY SYSTEM: Normal AP diameter. No accessory muscle use. No wheezing, no crackles. ABDOMEN: Soft, bowel sounds present, nontender. No distention. CENTRAL NERVOUS SYSTEM: Alert and oriented. Obeys simple commands. Moves extremities. Nonfocal. EXTREMITIES: No edema seen. Moves extremities. Principal Diagnosis Nausea, Elevated INR, History of atrial fibrillation, gastrointestinal bleed was suspected and ruled out Discharge Exam Constitutional WD/WN, vitals as above comfortable Eyes PERRL, conjunctivae normal, anicteric sclerae EOM intact bilaterally ENMT external ear and nose normal, oropharynx normal Neck trachea midline, no thyromegaly normal visual inspection Respiratory normal respiratory effort, lungs clear to auscultation Cardiovascular Rate/Rhythm: + bradycardic Gastrointestinal (Abdomen) normal bowel sounds, soft, nontender, no hepatosplenomegaly Musculoskeletal Head/Neck/Chest: normocephalic Neurologic PERRL, EOMI, accommodation nl, no face palsy, no dysarthria moves all extremities Psychiatric Orientation: alert and cooperative Discharge Data Allergies Allergy/AdvReac Type Severity Reaction Status Date / Time No Known Allergies Allergy Unverified 03/24/19 18:36 Consultations 03/24/19 17:38 ED Decision to Admit Stat 03/24/19 20:37 Consult Case Management - Discharge Planning Routine 03/25/19 08:00 Consult Gastroenterology Routine 03/26/19 06:38 Consult Cardiology Routine Ordered Studies 03/24/19 16:15 CT abd pelvis wo con Stat 03/24/19 16:24 CT head/brain wo con Stat Hospital Course (1) GI bleed: ASSESSMENT AND PLAN: This is an 83-year-old female who presents with persistent nausea and questionable gastrointestinal bleed and found to have elevated INR Persistent nausea - Could be from her doxycycline as outpatient, patient not certain why she was taking doxycycline - nausea has resolved -Stop coumadin (warfarin) at home. No apparent indication for doxycycline (stop this antibiotic) at home. recommend bringing home medications to clinics to verify necessity Scheduled appointments 03/28/2019 10:30 AM Provider [facility] Department Cardiology, [facility] 03/28/2019 6:20 PM Provider [facility] Department Pharmacy, [facility] 03/31/2019 2:00 PM Provider Jayda Lara, MARÍA Department [facility] 04/01/2019 1:00 PM Provider Daylin Kelley MD Department Internal Medicine [facility] 04/09/2019 2:00 PM Provider Gilberto Muller MD Department Cardiology, [facility] 04/10/2019 2:00 PM Provider Lucero Guo RDN Department Nutrition, [facility] Chronic dizziness -Followed up with neurology and Antivert p.r.n. gastrointestinal bleed was suspected and ruled out -per admitting MD: The patient saw some pink or orange stool at home, but her Hemoccult was not significant in the ER. Her hemoglobin was stable at 13.1, but her INR is 6.8. Received IV vitamin K on admission -Gastroenterology was consulted and deferred any invasive scoping Hemoglobin 12.4 on 03/25/2019 and INR 1.2 on 03/26/2019, 5 mg coumadin given on 03/26/2019, but Cardiology service recommended against further coumadin ("Her HAS- BLED and [id number] Scores both reveal a high risk for major bleeding") History of tachybrady syndrome History of atrial fibrillation -has pacemaker -Continuous telemetry monitoring reveals a paced rhythm in the 60s -Continue her amiodarone, Lopressor, and Cardizem. Chronic kidney disease stage IV -stable renal function Cognitive Dysfunction -previous hospitalist had confirmed with Bella- daughter of patient's significant other, that patient is forgetful, occasionally with tangential thoughts at baseline -concerns for dementia of the patient is raised, and patient lives at home with significant other who has dementia. however, as per case management there are no placement services that can be offered -discharge to home under care of her significant other's family member and senior case manager arranged services and Office of Aging to be involved on outpatient basis Discharge Diagnosis Nausea, Elevated INR, History of atrial fibrillation, gastrointestinal bleed was suspected and ruled out Total Time Total Time Spent Total Time Spent (In Minutes): 40 minutes Total Time Includes: Examination of the Patient, Discharge Planning, Medication Reconciliation and Communication With Other Providers Discharge Plan Discharge Items Patient Disposition: Home - Home Health Services Reason For Visit: PERSISTANT NAUSEA Discharge Diagnosis: Nausea, Elevated INR, History of atrial fibrillation, gastrointestinal bleed was suspected and ruled out Activity: Per Instructions section Non-emergency contact: Primary Care Provider Call non-emergency contact if: you have any medication questions Follow-up/Referrals: Daylin Kelley MD [Primary Care Provider] - (Your hospital follow up is scheduled for Sunday04/01/19 at 12:45pm with Dr Kelley.) Diet: Regular Addtl Attending Provider Instructions: Continuous telemetry monitoring reveals a paced rhythm in the 60s INR 6.8 on admission reversed after IV Vitamin K on this hospitalization Gastroenterology was consulted and deferred any invasive scoping Hemoglobin 12.4 on 03/25/2019 and INR 1.2 on 03/26/2019, 5 mg coumadin given on 03/26/2019, but Cardiology service recommended against further coumadin ("Her HAS- BLED and [id number] Scores both reveal a high risk for major bleeding") Stop coumadin (warfarin) at home. No apparent indication for doxycycline (stop this antibiotic) at home. recommend bringing home medications to clinics to verify necessity Scheduled appointments 03/28/2019 10:30 AM Provider [facility] Department Cardiology, [facility] 03/28/2019 6:20 PM Provider [facility] Department Pharmacy, [facility] 03/31/2019 2:00 PM Provider Jayda Lara RN Department [facility] 04/01/2019 1:00 PM Provider Daylin Kelley MD Department Internal Medicine [facility] 04/09/2019 2:00 PM Provider Gilberto Muller MD Department Cardiology, [facility] 04/10/2019 2:00 PM Provider Lucero Guo RDN Department Nutrition, [facility] Pending Studies at Discharge: No Stand-Alone Forms: My [facility], Smoking Cessation Medications and DC Order Prescriptions: Continued thiamine HCl (vitamin B1) 100 mg tablet 100 mg PO DAILY RF: 0 diltiazem HCl 30 mg Tablet 30 mg PO TID 30 Days Qty: 90 RF: 0 metoprolol tartrate 25 mg Tablet 25 mg PO BID 30 Days Qty: 60 RF: 0 amiodarone 200 mg tablet 200 mg PO DAILY Qty: 30 RF: 0 aspirin 81 mg Tablet,Chewable 81 mg PO QAM RF: 0 cholecalciferol (vitamin D3) [Vitamin D3] 2,000 unit Tablet 2,000 unit PO QAM RF: 0 acetaminophen 325 mg Tablet 650 mg PO Q4 PRN (Reason: Pain) RF: 0 polyethylene glycol 3350 [Miralax] 17 gram Powder In Packet 17 g PO BID RF: 0 ondansetron HCl [Zofran] 4 mg Tablet 4 mg PO Q6H PRN (Reason: Nausea) RF: 0 psyllium husk [Metamucil] 0.4 gram Capsule 0.4 g PO DAILY RF: 0 Discontinued doxycycline hyclate 100 mg capsule 100 mg PO BID RF: 0 warfarin 3 mg tablet 0 mg PO .ONHOLD RF: 0 Discharge Orders: Discharge Order (Routine); Ordered 03/26/19 Ordered By: Issa Coley Admission Data Admit Date/Time: 03/24/19 19:11 Attending Provider: Issa Coley Admit Provider: Dixon Christian Primary Care Provider: Daylin Kelley Other Providers: Dixon Christian ; Tino Peng ; Julia Rm ; Markell Villanueva ; Juanita Stein ; Romero Murphy ; Noel Diaz ; Conrado Diaz ; Sanjuana Hopper ; Vinny Barreto ; Danny Horowitz ; Dionna Blood ; Betty Acevedo ; Leora Ash ; Ashley Leone ; Shahab Scott ; Александр Saleem
[2019-03-27] MEDS ORDERED: WARFARIN SOD 2 MG TAB PO SCH (16:00)
== END 2019-03-26 16:59 | disposition home health service (06) ==
LOC: 2N 15:42 → ED 15:42 → SUATTDRO 19:11 → 2N 19:58

== ENCOUNTER 2022-08-20 07:56 | Inpatient (IN) ==
--- NOTE | 2022-08-20 08:10 | Emergency Department Note ---
History of Present Illness General Chief complaint: Fall Time Seen by Provider: 08/20/22 08:03 Source: patient, family (Her healthcare power of business attorney arrived and talked her at length), EMS, RN notes reviewed and old records reviewed (Have reviewed a neurology note from 2019) Mode of arrival: ambulatory Limitations: no limitations History of Present Illness This patient 87-year-old female who apparently has a history of dementia but li ves independently, comes in after being found outside under a tree. She was last seen around 930 last night at bedtime and lives alone. Her house was locked. She was found sleeping under a tree. There is no obvious trauma. She has voiced no complaints. She knows that she is at the hospital. Denies pain anywhere or fall. Home Medications Medication Instructions Recorded Confirmed Type aspirin 81 mg chewable tablet 81 mg PO QAM 01/23/18 08/20/22 History cholecalciferol (vitamin D3) 50 2,000 unit PO QAM 01/23/18 08/20/22 History mcg (2,000 unit) tablet (Vitamin D3) thiamine HCl (vitamin B1) 100 mg 100 mg PO DAILY 02/20/19 08/20/22 History tablet amiodarone 200 mg tablet 200 mg PO DAILY #30 tabs 03/03/19 03/24/19 Rx acetaminophen 325 mg tablet 650 mg PO Q4 PRN Pain 03/24/19 03/24/19 History ondansetron HCl 4 mg tablet 4 mg PO Q6H PRN Nausea 03/24/19 03/24/19 History (Zofran) polyethylene glycol 3350 17 gram 17 g PO BID 03/24/19 03/24/19 History oral powder packet (Miralax) psyllium husk 0.4 gram capsule 0.4 g PO DAILY 03/24/19 03/24/19 History (Metamucil) Allergies Allergy/AdvReac Type Severity Reaction Status Date / Time No Known Allergies Allergy Unverified 03/24/19 18:36 Past Med/Surg History Medical History Cardiac pacemaker Chronic kidney disease (CKD), stage IV (severe) HLD (hyperlipidemia) HTN (hypertension) Osteoporosis PAF (paroxysmal atrial fibrillation) pt admitted for elective ppm due to TBS; underwent procedure without any complications. her diltiazem was stopped and she was started on toprol and amiodarone; monitored overnight and discharged home. 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 her diltiazem was stopped and she was started on toprol and amiodarone; monitored overnight and discharged home. Surgical History History of total right hip arthroplasty Family History Other Unknown family medical history Social History Smoking Status: Never smoker Second Hand Exposure: No; Do You Dip or Chew Tobacco: No; Tobacco Cessation Education Requested by Patient: No Hx Alcohol Use: No Hx Substance Use: No Preferred Language: Ukrainian Communication Ability: Effective Hospitality Team Member Required: No Beliefs That Will Affect Care: None marital status: Life Partner Current Living Situation: Alone Current Living Situation Comment: Lives alone Other Information That Helps Us Care for You: No Feels Safe at Home: Yes Safety Concerns: Feels Safe At This Time Assistive Devices: None Review of Systems A total of 10 systems reviewed and were otherwise negative Physical Exam Vital Signs Vital Signs - 24 hr 08/20/22 08:07 08/20/22 08:41 08/20/22 08:03 Temperature 34.7 C L Temperature Source Rectal Pulse Rate 73 Pulse Rate [Right Finger] 67 Pulse Rate from SpO2 Sensor Respiratory Rate 20 Respiratory Effort / Characteristics Non-Labored Spontaneous Respiratory Depth Normal Respiratory Pattern Regular Blood Pressure Blood Pressure [Right Arm] 134/103 H Blood Pressure Mean Blood Pressure Mean [Right Arm] 113 Pulse Oximetry 99 Oxygen Delivery Method Room Air Sepsis Recent Fever Within 48 Hours No Sepsis New/Unexplained Change in Mental Status Yes Sepsis Action Taken by Nursing No Action Required 08/20/22 09:10 08/20/22 09:30 08/20/22 09:30 Temperature Temperature Source Pulse Rate 62 61 Pulse Rate [Right Finger] Pulse Rate from SpO2 Sensor 62 60 Respiratory Rate 16 12 Respiratory Effort / Characteristics Respiratory Depth Respiratory Pattern Blood Pressure 165/87 H 163/80 H Blood Pressure [Right Arm] Blood Pressure Mean 113 91 Blood Pressure Mean [Right Arm] Pulse Oximetry 100 99 Oxygen Delivery Method Sepsis Recent Fever Within 48 Hours Sepsis New/Unexplained Change in Mental Status Sepsis Action Taken by Nursing General: Well developed well nourished older female who appears hard of hearing but in no acute distress, breathing comfortably on room air. Normal speech. She answers questions slowly but mostly appropriately alert to person and place HEENT: Normal cephalic atraumatic. Pupils are equal round and reactive to light. Extraocular movements are intact. Oropharynx is pink with moist mucous membranes. No swelling of the mouth lips or tongue. Neck: Supple with a midline trachea. No meningeal signs or stiffness, no JVD or bruits. No Stridor. Chest: Clear to auscultation bilaterally. No wheezes or rhonchi. No increased work of breathing. Pacemaker in left chest Heart: Regular rate and rhythm without murmurs or gallops. Abdomen: Soft nontender, nondistended without rebound guarding or rigidity. Extremities: No cyanosis clubbing or edema. No calf tenderness or assymetry Spine/Back. Non tender to palpation. No CVA tenderness Skin: Good turgor without rashes. Neurologic exam: Cranial nerves two through 12 are intact. Motor and sensation are intact and symmetrical throughout. Course Administered Medications Sodium Chloride (Nss 1000ml) 1,000 mls @ 80 mls/hr IV .[id number] DARRYN Stop: 09/19/22 15:35 Last Admin: 08/20/22 15:59 Dose: 80 mls/hr Documented By: LILIANA Medical Decision Making Differential Diagnosis Syncope, arrhythmia, head injury, electrolyte or metabolic abnormality, infection, toxicologic, metabolic, neurologic Medical Records Attestation: I reviewed the patient's medical records. Home Medications Current Medication List: was personally reviewed by vt Laboratory Data Attestation: I reviewed the patient's lab results. 08/20/22 08:09 08/20/22 09:05 Lab Results 08/20/22 08/20/22 08/20/22 Range/Units 08:09 08:09 09:03 WBC 10.30 (4.8-10.8) K/ul RBC 3.99 L (4.20-5.40) M/uL Hgb 12.4 (12.0-16.0) g/dl Hct 36.8 L (37.0-47.0) % MCV 92.2 (80.0-100.0) fL MCH 31.1 (25.0-34.0) pg MCHC 33.7 (32.0-36.0) g/dL RDW Std Deviation 45.4 (36.4-46.3) fL RDW Coeff of Filiberto 13.2 (11.5-14.5) % Plt Count 241 (130-400) K/uL MPV 9.4 (9.4-12.4) fL Immature Gran % (Auto) 0.5 % Neut % (Auto) 83.3 % Lymph % (Auto) 9.7 % Hinds % (Auto) 5.9 % Eos % (Auto) 0.1 % Baso % (Auto) 0.5 % Neut # (Auto) 8.58 H (1.40-6.50) K/uL Lymph # (Auto) 1.00 L (1.2-3.4) K/uL Hinds # (Auto) 0.61 H (0.11-0.59) K/uL Eos # (Auto) 0.01 (0-0.50) K/uL Baso # (Auto) 0.05 (0-0.2) K/uL Immature Gran # (Auto) 0.05 (0.01-0.20) K/uL PT 10.9 (9.0-12.0) Seconds INR 1.0 (0.9-1.1) APTT 27.8 (21.0-31.0) Seconds PTT Ratio 1.0 Sodium 135 L (136-145) mmol/L Potassium TNP Chloride 102 (98-107) mmol/L Carbon Dioxide 25 (21-32) mmol/L Anion Gap 8 (3-11) BUN 45 H (6-23) mg/dl Creatinine 2.21 H (0.6-1.2) mg/dl Est Cr Clr Drug Dosing Not Reportable Est GFR ( Amer) 22.5 ml/min Est GFR (Non-Af Amer) 19.4 ml/min BUN/Creatinine Ratio 20.4 H (10-20) Glucose 107 H (70-99(Fasting)) mg/dl Lactate (0.4-2.0) mmol/L Calcium 9.3 (8.6-10.3) mg/dl Magnesium 2.6 H (1.7-2.4) mg/dl Total Bilirubin 0.3 (0.2-1.0) mg/dl AST TNP ALT 14 (7-52) U/L Alkaline Phosphatase 104 (34-104) U/L Total Creatine Kinase 93 (26-192) U/L Troponin I High Sens 6.6 (0-14) pg/ml Total Protein 7.7 (6.0-8.3) gm/dl Albumin 4.0 (3.4-5.0) gm/dl Globulin 3.7 (2.5-4.0) gm/dl Albumin/Globulin Ratio 1.1 (0.9-2) TSH (0.300-4.500) uIu/ml Urine Color Urine Appearance (Clear) Urine pH (4.5-7.5) Ur Specific [place] (1.000-1.030) Urine Protein (Negative) Urine Glucose (UA) (Negative) Urine Ketones (Negative) Urine Blood (Negative) Urine Nitrite (Negative) Urine Bilirubin (Negative) Urine Urobilinogen (Negative) Ur Leukocyte Esterase (Negative) Urine WBC (Auto) (0-5) /hpf Urine RBC (Auto) (0-4) /hpf U Hyaline Cast (Auto) (0-5) /lpf U Epithel Cells (Auto) (0-5) /lpf Urine Bacteria (Auto) (Negative) SARS-CoV-2, RNA, NAAT (NEGATIVE) 08/20/22 08/20/22 08/20/22 Range/Units 09:03 09:03 09:05 WBC (4.8-10.8) K/ul RBC (4.20-5.40) M/uL Hgb (12.0-16.0) g/dl Hct (37.0-47.0) % MCV (80.0-100.0) fL MCH (25.0-34.0) pg MCHC (32.0-36.0) g/dL RDW Std Deviation (36.4-46.3) fL RDW Coeff of Filiberto (11.5-14.5) % Plt Count (130-400) K/uL MPV (9.4-12.4) fL Immature Gran % (Auto) % Neut % (Auto) % Lymph % (Auto) % Hind[place] % (Auto) % Eos % (Auto) % Baso % (Auto) % Neut # (Auto) (1.40-6.50) K/uL Lymph # (Auto) (1.2-3.4) K/uL Hinds # (Auto) (0.11-0.59) K/uL Eos # (Auto) (0-0.50) K/uL Baso # (Auto) (0-0.2) K/uL Immature Gran # (Auto) (0.01-0.20) K/uL PT (9.0-12.0) Seconds INR (0.9-1.1) APTT (21.0-31.0) Seconds PTT Ratio Sodium (136-145) mmol/L Potassium 5.1 Chloride (98-107) mmol/L Carbon Dioxide (21-32) mmol/L Anion Gap (3-11) BUN (6-23) mg/dl Creatinine (0.6-1.2) mg/dl Est Cr Clr Drug Dosing Est GFR ( Amer) ml/min Est GFR (Non-Af Amer) ml/min BUN/Creatinine Ratio (10-20) Glucose (70-99(Fasting)) mg/dl Lactate 1.2 (0.4-2.0) mmol/L Calcium (8.6-10.3) mg/dl Magnesium (1.7-2.4) mg/dl Total Bilirubin (0.2-1.0) mg/dl AST 19 ALT (7-52) U/L Alkaline Phosphatase (34-104) U/L Total Creatine Kinase (26-192) U/L Troponin I High Sens (0-14) pg/ml Total Protein (6.0-8.3) gm/dl Albumin (3.4-5.0) gm/dl Globulin (2.5-4.0) gm/dl Albumin/Globulin Ratio (0.9-2) TSH 1.878 (0.300-4.500) uIu/ml Urine Color Urine Appearance (Clear) Urine pH (4.5-7.5) Ur Specific [place] (1.000-1.030) Urine Protein (Negative) Urine Glucose (UA) (Negative) Urine Ketones (Negative) Urine Blood (Negative) Urine Nitrite (Negative) Urine Bilirubin (Negative) Urine Urobilinogen (Negative) Ur Leukocyte Esterase (Negative) Urine WBC (Auto) (0-5) /hpf Urine RBC (Auto) (0-4) /hpf U Hyaline Cast (Auto) (0-5) /lpf U Epithel Cells (Auto) (0-5) /lpf Urine Bacteria (Auto) (Negative) SARS-CoV-2, RNA, NAAT (NEGATIVE) 08/20/22 08/20/22 Range/Units 09:10 09:50 WBC (4.8-10.8) K/ul RBC (4.20-5.40) M/uL Hgb (12.0-16.0) g/dl Hct (37.0-47.0) % MCV (80.0-100.0) fL MCH (25.0-34.0) pg MCHC (32.0-36.0) g/dL RDW Std Deviation (36.4-46.3) fL RDW Coeff of Filiberto (11.5-14.5) % Plt Count (130-400) K/uL MPV (9.4-12.4) fL Immature Gran % (Auto) % Neut % (Auto) % Lymph % (Auto) % Hinds % (Auto) % Eos % (Auto) % Baso % (Auto) % Neut # (Auto) (1.40-6.50) K/uL Lymph # (Auto) (1.2-3.4) K/uL Hinds # (Auto) (0.11-0.59) K/uL Eos # (Auto) (0-0.50) K/uL Baso # (Auto) (0-0.2) K/uL Immature Gran # (Auto) (0.01-0.20) K/uL PT (9.0-12.0) Seconds INR (0.9-1.1) APTT (21.0-31.0) Seconds PTT Ratio Sodium (136-145) mmol/L Potassium Chloride (98-107) mmol/L Carbon Dioxide (21-32) mmol/L Anion Gap (3-11) BUN (6-23) mg/dl Creatinine (0.6-1.2) mg/dl Est Cr Clr Drug Dosing Est GFR ( Amer) ml/min Est GFR (Non-Af Amer) ml/min BUN/Creatinine Ratio (10-20) Glucose (70-99(Fasting)) mg/dl Lactate (0.4-2.0) mmol/L Calcium (8.6-10.3) mg/dl Magnesium (1.7-2.4) mg/dl Total Bilirubin (0.2-1.0) mg/dl AST ALT (7-52) U/L Alkaline Phosphatase (34-104) U/L Total Creatine Kinase (26-192) U/L Troponin I High Sens (0-14) pg/ml Total Protein (6.0-8.3) gm/dl Albumin (3.4-5.0) gm/dl Globulin (2.5-4.0) gm/dl Albumin/Globulin Ratio (0.9-2) TSH (0.300-4.500) uIu/ml Urine Color Yellow Urine Appearance Clear (Clear) Urine pH 6.5 (4.5-7.5) Ur Specific [place] 1.014 (1.000-1.030) Urine Protein 1+ H (Negative) Urine Glucose (UA) Negative (Negative) Urine Ketones Negative (Negative) Urine Blood Negative (Negative) Urine Nitrite Negative (Negative) Urine Bilirubin Negative (Negative) Urine Urobilinogen Negative (Negative) Ur Leukocyte Esterase Trace H (Negative) Urine WBC (Auto) 1-5 (0-5) /hpf Urine RBC (Auto) 0-4 (0-4) /hpf U Hyaline Cast (Auto) 1-5 (0-5) /lpf U Epithel Cells (Auto) 20-30 H (0-5) /lpf Urine Bacteria (Auto) Negative (Negative) SARS-CoV-2, RNA, NAAT NEGATIVE (NEGATIVE) Imaging Data Attestation: I personally reviewed and interpreted this imaging study as follows: My Impression: Chest x-raycardiomegaly with pacemaker but no overt CHF pneumonia or pneumothorax Head CTno hemorrhage or mass effect Radiologist's Impression: Chest X-Ray 08/20/22 08:03 SINGLE VIEW CHEST CLINICAL HISTORY: Generalized weakness.. FINDINGS: An AP, portable, upright chest radiograph is compared to study dated 02/20/2019. A 2-lead cardiac pacemaker is unchanged in position and partially obscures the left upper chest. The heart is enlarged noting atherosclerotic calcification of the thoracic aorta. The pulmonary vasculature is noncongested. Chronic interstitial thickening is similar to previous. There is mild left basilar scarring/atelectasis. No airspace consolidation, large pleural effusion, or pneumothorax is seen. The skeletal structures are osteopenic. The bony thorax appears intact. Degenerative change and scoliosis are noted in the thoracic spine. IMPRESSION: 1. Cardiomegaly and cardiac pacemaker without radiographic evidence of congestive failure. 2. No airspace consolidation or large pleural effusion is identified. Electronically signed by: Jd Kingsley M.D. 08/20/2022 8:[address] 08/20/22 08:05 CT SCAN OF THE BRAIN WITHOUT IV CONTRAST CLINICAL HISTORY: Change in mental status. COMPARISON STUDY: CT of the brain dated 11/26/2020. TECHNIQUE: Unenhanced axial CT scan of the brain is performed from the vertex to the skull base. A dose lowering technique was utilized adhering to the principles of ALARA. CT DOSE: 625.80 mGy.cm FINDINGS: Brain parenchyma: There is age-related involutional change noting advanced confluent subcortical and periventricular microangiopathic disease. There is no hemorrhage, mass effect, or evidence of acute territorial ischemia by CT criteria. Genao-white matter differentiation is preserved. Mineralization is not ed in the basal ganglia. No extra-axial fluid collection is seen. Ventricles, sulci, cisterns: Prominent secondary to involutional change. Intracranial vasculature: There is atherosclerotic calcification of the cavernous carotid and vertebral arteries. Calvarium: Unremarkable. Sinuses and mastoids: There is moderate mucosal thickening within the sphenoid sinuses. The remaining paranasal sinuses are clear. There is a left mastoid effusion. The right mastoid air cells are well pneumatized. Orbits: The bony orbits are grossly intact. IMPRESSION: There is no hemorrhage, mass effect, or evidence of acute territorial ischemia by CT criteria. ACT 112: Negative or not required by law. Electronically signed by: Jd Kingsley M.D. 08/20/2022 8:47 AM ECG Data Attestation: I personally reviewed and interpreted this ECG as follows: Indication: + weakness Rate (beats per minute): 75 Rhythm: + other (Intermittently atrial paced. Poor baseline) ECG Intervals/blocks: + Normal QRS and + Normal QT ECG [place]: + Normal, + Left axis deviation and + Right axis deviation ECG ST segments: + Normal ST segments ECG Findings: + Other (T wave inversions anteriorly) Comparison ECG Date: from (03/24/2019) Change: the following changes noted (T wave inversions are new) MDM Narrative This patient comes in as described above. Was placed on a media monitor room B9 she was found down. She has no complaints she does move all 4 extremities symmetrically and does not appear to have any significant neurologic deficits. She does apparently have some baseline dementia according to the neighbor. IV access was established EKG was obtained which did not show any definite ischemic changes. Multiple blood testing was obtained I did do a CAT scan of her head. Urinalysis was also obtained. Her blood work did look unremarkable with exception of her BUN and creatinine are mildly elevated compared to baseline of 45 and 2.21. She could be dehydrated. She was found initially to be hypothermic so we put a bear hugger on. She has nothing to suggest infection otherwise. COVID testing was negative. I did interrogate her pacemaker and the [employer] rep called back and told me that there were no significant arrhythmias. she has good battery and leads. He said that she had no significant arrhythmia lately,back in May she had 11 beats of V. tach. Her caregiver did arrive and I talked her at length. The patient is a DO NOT RESUSCITATE. She has been able to care for at home with the caregiver of the living next-door but she may ultimately need placement. I do have consulted [facility] to see her in the ER for further treatment and evaluation. Continuous cardiac monitoring: Orders placed in EMR for continuous cardiac monitoring: Upon my evaluation patient noted to be in a paced rhythm at 75. Impression & Plan AMS (altered mental status), Tachy-jacque syndrome, Weakness, Cardiac pacemaker, Lab test negative for COVID-19 virus Discharge Plan Visit Data Chief Complaint: Fall ED Provider: Samuel Martino Discharge Problem: AMS (altered mental status), Tachy-jacque syndrome, Weakness, Cardiac pacemaker, Lab test negative for COVID-19 virus Patient Disposition: Admitted As Inpatient Discharge Instructions Interventions: ED Discharge Assessment Last Done: 08/20/22 14:48
--- NOTE | 2022-08-20 08:26 | XRay Report ---
SINGLE VIEW CHEST CLINICAL HISTORY: Generalized weakness.. FINDINGS: An AP, portable, upright chest radiograph is compared to study dated 02/20/2019. A 2-lead car diac pacemaker is unchanged in position and partially obscures the left upper chest. The heart is enl arged noting atherosclerotic calcification of the thoracic aorta. The pulmonary vasculature is noncon gested. Chronic interstitial thickening is similar to previous. There is mild left basilar scarring/a telectasis. No airspace consolidation, large pleural effusion, or pneumothorax is seen. The skeletal structures are osteopenic. The bony thorax appears intact. Degenerative change and scoliosis are note d in the thoracic spine. IMPRESSION: 1. Cardiomegaly and cardiac pacemaker without radiographic evidence of congestive failure. 2. No airspace consolidation or large pleural effusion is identified. Electronically signed by: Jd Kingsley M.D. 08/20/2022 8:24 AM
[2022-08-20 08:38] LABS: Basophils # (auto) 0.05 K/uL (0-0.2); Basophils % (auto) 0.5 %; Eosinophils # (auto) 0.01 K/uL (0-0.50); Eosinophils % (auto) 0.1 %; Hematocrit (blood only) 36.8 % (37.0-47.0); Hemoglobin 12.4 g/dl (12.0-16.0); Immature Granulocytes # (auto) 0.05 K/uL (0.01-0.20); Immature Granulocytes % (auto) 0.5 %; Lymphocytes % (auto) 9.7 %; Mean Corpuscular Hemoglobin 31.1 pg (25.0-34.0); Mean Corpuscular Hgb Conc 33.7 g/dL (32.0-36.0); Mean Corpuscular Volume 92.2 fL (80.0-100.0); Mean Platelet Volume 9.4 fL (9.4-12.4); Monocytes # (auto) 0.61 K/uL (0.11-0.59); Monocytes % (auto) 5.9 %; Neutrophils # (auto) 8.58 K/uL (1.40-6.50); Neutrophils % (auto) 83.3 %; Platelet Count 241 K/uL (130-400); RDW Coefficient of Variation 13.2 % (11.5-14.5); RDW Standard Deviation 45.4 fL (36.4-46.3); Red Blood Count 3.99 M/uL (4.20-5.40)
--- NOTE | 2022-08-20 08:49 | CT Scan Report ---
CT SCAN OF THE BRAIN WITHOUT IV CONTRAST CLINICAL HISTORY: Change in mental status. COMPARISON STUDY: CT of the brain dated 11/26/2020. TECHNIQUE: Unenhanced axial CT scan of the brain is performed from the vertex to the skull base. A do se lowering technique was utilized adhering to the principles of ALARA. CT DOSE: 625.80 mGy.cm FINDINGS: Brain parenchyma: There is age-related involutional change noting advanced confluent subcortical and periventricular microangiopathic disease. There is no hemorrhage, mass effect, or evidence of acute t erritorial ischemia by CT criteria. Genao-white matter differentiation is preserved. Mineralization is noted in the basal ganglia. No extra-axial fluid collection is seen. Ventricles, sulci, cisterns: Prominent secondary to involutional change. Intracranial vasculature: There is atherosclerotic calcification of the cavernous carotid and vertebr al arteries. Calvarium: Unremarkable. Sinuses and mastoids: There is moderate mucosal thickening within the sphenoid sinuses. The remaining paranasal sinuses are clear. There is a left mastoid effusion. The right mastoid air cells are well pneumatized. Orbits: The bony orbits are grossly intact. IMPRESSION: There is no hemorrhage, mass effect, or evidence of acute territorial ischemia by CT olga herrera. ACT 112: Negative or not required by law. Electronically signed by: Jd Kingsley M.D. 08/20/2022 8:47 AM
[2022-08-20 09:02] LABS: Alanine Aminotransferase 14 U/L (7-52); Albumin Globulin Ratio 1.1 (0.9-2); Alkaline Phosphatase 104 U/L (34-104); Anion Gap 8 (3-11); BUN Creatinine Ratio 20.4 (10-20); Bilirubin,Total 0.3 mg/dl (0.2-1.0); Blood Urea Nitrogen 45 mg/dl (6-23); Calcium 9.3 mg/dl (8.6-10.3); Carbon Dioxide 25 mmol/L (21-32); Chloride 102 mmol/L (98-107); Creatine Kinase 93 U/L (26-192); Est GFR (African American) 22.5 ml/min; Est GFR (Non-African American) 19.4 ml/min; Globulin 3.7 gm/dl (2.5-4.0); Glucose 107 mg/dl (70-99(Fasting)); Magnesium 2.6 mg/dl (1.7-2.4); Sodium 135 mmol/L (136-145); Total Protein 7.7 gm/dl (6.0-8.3); Troponin I High Sensitivity 6.6 pg/ml (0-14)
[2022-08-20 09:35] LABS: Potassium 5.1 mmol/L (3.5-5.1)
[2022-08-20 09:45] LABS: Partial Thromboplastin Time 27.8 Seconds (21.0-31.0); Prothrombin Time 10.9 Seconds (9.0-12.0)
[2022-08-20 10:07] LABS: Appearance Urine Clear (Clear); Bacteria Urine Automated Negative (Negative); Bilirubin Urine Negative (Negative); Blood Urine Negative (Negative); Color Urine Yellow; Epithelial Cell Urine Auto 20-30 /lpf (0-5); Glucose Urine UA Negative (Negative); Ketones Urine Negative (Negative); Leukocyte Esterase Urine Trace (Negative); Nitrite Urine Negative (Negative); Protein Urine 1+ (Negative); RBC Urine Automated 0-4 /hpf (0-4); Specific Gravity Urine 1.014 (1.000-1.030); Urobilinogen Urine Negative (Negative); pH Urine 6.5 (4.5-7.5)
[2022-08-20] MEDS ORDERED: POLYETHYLENE (MIRALAX) 17 GM PACK PO PRN (10:15)
[2022-08-20] MEDS ORDERED: ALUMINUM/MAGNESIUM SUSP 30 ML UDC PO PRN (10:15)
--- NOTE | 2022-08-20 10:32 | History & Physical Report ---
Date of Service August 20, 2022 Assessment & Plan (1) AMS (altered mental status): (2) Dementia: (3) Hypothermia: (4) CKD (chronic kidney disease): (5) PAF (paroxysmal atrial fibrillation): (6) Chronic kidney disease (CKD), stage IV (severe): (7) HLD (hyperlipidemia): (8) HTN (hypertension): (9) Tachy-jacque syndrome: Plan 87yoF with PMHx significant for progressing dementia but lives alone, paroxysmal atrial fibrillation, tachy-jacque syndrome s/p pacemaker placement, HTN, HLD, CKD who was brought in by her neighbor who is her POA after being found sleeping under a tree. Dementia/Altered Mental Status POA Janeth Avila present in the room and provides the history as pt is only oriented to self, but only her first 2 names, Jordyn Kwon. States she cannot recall her last name. Janeth states that she last saw pt about 9:30pm last night as she went to check on her due to fireworks in the neighborhood, and she was sound asleep. She notes that at about 7:30pm last night they had dinner and the pt mentioned that an old boyfriend who passed many years ago was coming to get her and they would be going out. After seeing her sound asleep at about 9:30pm last night, a nuclear reactor engineer asked her at about 7AM this morning, to come identify the patient as someone had called after she was seen sleeping under a tree. Janeth states that this is very atypical for the pt as she rarely goes outside. Janeth states that she is a close friend and neighbor of the pt, as well as her POA. Does not have paperwork with her in the ED currently. Advised to bring in POA paperwork with POLST form (only front page of POLST scanned into [employer]) which she stated she would. [facility] chart review shows [facility] by [facility] and concern for pt's finances. Janeth states that the pt currently lives alone in spite of the progressing dementia as pt vehemently declines placement. She notes she helps with feeding and bathing her and Janeth's daughter also helps when Janeth is not available. Discussion with Janeth that given pt's current situation where she was found sleeping under a tree with her house locked in the setting of progressive dementia, placement is likely needed. Janeth notes that she might be agreeable if absolutely necessary but would like to respect the pt's wishes concerning this. Complex CM referral placed. 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 Pt with pacemaker, will defer on MRI brain. UA with trace leukocyte esterase, Na of 135 unlikely to cause symptoms. Blood cultures ordered by the ED pending. Symptoms suggestive of progressing dementia, monitor for acute delirium episodes overnight. Ativan 0.5mg ordered q8h PRN as needed for agitation. PT/OT Hypothermia Noted on arrival. Pt was found sleeping outside. Rewarming blanket/protocol orders placed. Continue to monitor. PAF/tachy jacque syndrome/HTN/CAD Not currently on anticoagulation for PAF, previous cardiology notes noted increased risk of bleeding due to falls Continue home aspirin with diltiazem and metoprolol s/p pacemaker placement for tachy jacque syndrome- interrogated per request by ED doc. Showed abnormal rhythms in May, none currently. Continue to monitor on the telemetry floor. CKD EPIC chart review notes new baseline of Cr 1.9 in May 2022 Currently elevated >2 Gentle fluid hydration HLD Not on statin currently Nausea/GERD Continue home famotidine Vit D/thiamine def Continue home supplementation DVT prophylaxis: Heparin SQ q12h CODE STATUS: DNR/DNI, per POA and front page of POLST reviewed in [employer] Diet: HH Dispo: Med/surg with tele, will likely need placement, complex case History of Present Illness Chief Complaint: AMS Primary Care Provider: Daylin Kelley MD 87yoF with PMHx significant for progressing dementia but lives alone, paroxysmal atrial fibrillation, tachy-jacque syndrome s/p pacemaker placement, HTN, HLD, CKD who was brought in by her neighbor who is her POA after being found sleeping under a tree. Hx obtained from NATALIA Gramajo present at bedside and [facility] and [facility] chart review. NATALIA Gramajo present in the room and provides the history as pt is only oriented to self, but only her first 2 names, Jordyn Kwon. States she cannot recall her last name. Janeth states that she last saw pt about 9:30pm last night as she went to check on her due to fireworks in the neighborhood, and she was sound asleep. She notes that a few hours before that at about 7:30pm last night, they had dinner and the pt mentioned that an old boyfriend who passed many years ago was coming to get her and they would be going out. She notes that the dementia has been progressing. She states she has also noticed that the patient has been mimicking symptoms. She further explains that she (Janeth) broke her arm a few weeks ago and the pt later stated that she had arm pain. Again, she notes that she (Janeth) mentioned she had stomach trouble and the pt later stated that she had abdominal pain as well. Janeth states she took her in to see her physician for those complaints as advised by [facility] on aging and pt got a clean bill of health. Janeth continues that after seeing the pt sound asleep at about 9:30pm last night, this morning at about 7AM, a nuclear reactor engineer asked her to come identify the patient as someone had called after she was seen sleeping under a tree. Janeth states that this is very atypical for the pt as she rarely goes outside. Janeth notes that she is a close friend and neighbor of the pt, as well as her POA. She does not have the POA paperwork with her in the ED currently but can bring it in. EPIC chart review shows investigations by [facility] and concern for pt's finances. Janeth states that the pt currently lives alone in spite of the progressing dementia as pt vehemently declines placement. She notes she helps with feeding and bathing her and Janeth's daughter also helps when Janeth is not available. She notes pt is a DNR/DNI. Allergies Allergy/AdvReac Type Severity Reaction Status Date / Time No Known Allergies Allergy Unverified 03/24/19 18:36 Home Medications Medication Instructions Recorded Confirmed Type aspirin 81 mg chewable tablet 81 mg PO QAM 01/23/18 08/20/22 History cholecalciferol (vitamin D3) 50 2,000 unit PO QAM 01/23/18 08/20/22 History mcg (2,000 unit) tablet (Vitamin D3) thiamine HCl (vitamin B1) 100 mg 100 mg PO DAILY 02/20/19 08/20/22 History tablet amiodarone 200 mg tablet 200 mg PO DAILY #30 tabs 03/03/19 03/24/19 Rx acetaminophen 325 mg tablet 650 mg PO Q4 PRN Pain 03/24/19 03/24/19 History ondansetron HCl 4 mg tablet 4 mg PO Q6H PRN Nausea 03/24/19 03/24/19 History (Zofran) polyethylene glycol 3350 17 gram 17 g PO BID 03/24/19 03/24/19 History oral powder packet (Miralax) psyllium husk 0.4 gram capsule 0.4 g PO DAILY 03/24/19 03/24/19 History (Metamucil) Past Med/Surg History Medical History Cardiac pacemaker Chronic kidney disease (CKD), stage IV (severe) HLD (hyperlipidemia) HTN (hypertension) Osteoporosis PAF (paroxysmal atrial fibrillation) pt admitted for elective ppm due to TBS; underwent procedure without any complications. her diltiazem was stopped and she was started on toprol and amiodarone; monitored overnight and discharged home. 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 her diltiazem was stopped and she was started on toprol and amiodarone; monitored overnight and discharged home. Surgical History History of total right hip arthroplasty Family History Other Unknown family medical history Social History Smoking Status: Never smoker Second Hand Exposure: No; Do You Dip or Chew Tobacco: No; Hx Alcohol Use: No Hx Substance Use: No Preferred Language: Jordanian Communication Ability: Effective Technical Training Specialist Required: No Beliefs That Will Affect Care: None marital status: Life Partner Current Living Situation: Alone Current Living Situation Comment: In house with friend Feels Safe at Home: Yes Assistive Devices: None Review of Systems Review of Systems: All systems reviewed & are unremarkable except as noted in HPI & below Physical Exam Physical Exam: General: Alert at the start of the exam, fell asleep at the end. Oriented to first and second name only. No acute distress under warmer. Skin: No noted rashes or bruises Psych: Some difficulty understanding questions. Neuro: Alert at the start of the exam, fell asleep at the end. Oriented to first and second name only. HEENT: NC/AT Chest: Nontender to palpation. CV: paced rhythm noted Resp: Breath sounds clear bilaterally, no increased effort of breathing. Abdomen: Soft, nontender, nondistended. Extremities: No edema in lower extremities bilaterally. Results & Data Results & Data Vital Signs (Past 12 Hours) Vital Signs Temp Pulse Pulse Resp BP BP Pulse Ox 08/20/22 09:30 61 12 99 08/20/22 09:30 163/80 H 08/20/22 09:10 62 16 165/87 H 100 08/20/22 08:41 34.7 C L 67 20 134/103 H 99 08/20/22 08:07 73 O2 Del Method 08/20/22 09:30 08/20/22 09:30 08/20/22 09:10 08/20/22 08:41 Room Air 08/20/22 08:07 Diagnostic Findings Chest X-Ray 08/20/22 08:03 SINGLE VIEW CHEST CLINICAL HISTORY: Generalized weakness.. FINDINGS: An AP, portable, upright chest radiograph is compared to study dated 02/20/2019. A 2-lead cardiac pacemaker is unchanged in position and partially obscures the left upper chest. The heart is enlarged noting atherosclerotic calcification of the thoracic aorta. The pulmonary vasculature is noncongested. Chronic interstitial thickening is similar to previous. There is mild left basil ar scarring/atelectasis. No airspace consolidation, large pleural effusion, or pneumothorax is seen. The skeletal structures are osteopenic. The bony thorax appears intact. Degenerative change and scoliosis are noted in the thoracic spine. IMPRESSION: 1. Cardiomegaly and cardiac pacemaker without radiographic evidence of congestive failure. 2. No airspace consolidation or large pleural effusion is identified. Electronically signed by: Jd Kingsley M.D. 08/20/2022 8:[address] 08/20/22 08:05 CT SCAN OF THE BRAIN WITHOUT IV CONTRAST CLINICAL HISTORY: Change in mental status. COMPARISON STUDY: CT of the brain dated 11/26/2020. TECHNIQUE: Unenhanced axial CT scan of the brain is performed from the vertex to the skull base. A dose lowering technique was utilized adhering to the principles of ALARA. CT DOSE: 625.80 mGy.cm FINDINGS: Brain parenchyma: There is age-related involutional change noting advanced confluent subcortical and periventricular microangiopathic disease. There is no hemorrhage, mass effect, or evidence of acute territorial ischemia by CT criteria. Genao-white matter differentiation is preserved. Mineralization is noted in the basal ganglia. No extra-axial fluid collection is seen. Ventricles, sulci, cisterns: Prominent secondary to involutional change. Intracranial vasculature: There is atherosclerotic calcification of the cavernous carotid and vertebral arteries. Calvarium: Unremarkable. Sinuses and mastoids: There is moderate mucosal thickening within the sphenoid sinuses. The remaining paranasal sinuses are clear. There is a left mastoid effusion. The right mastoid air cells are well pneumatized. Orbits: The bony orbits are grossly intact. IMPRESSION: There is no hemorrhage, mass effect, or evidence of acute territorial ischemia by CT criteria. ACT 112: Negative or not required by law. Electronically signed by: Jd Kingsley M.D. 08/20/2022 8:47 AM
[2022-08-20] MEDS ORDERED: LORazepam 2 MG/1 ML VIAL IV PRN (15:36)
[2022-08-20] MEDS: SODIUM CHLORIDE 0.9% 1000ML 1,000 ML IV SCH (15:59)
[2022-08-20] MEDS ORDERED: PNEUMOCOCCAL Polysaccharide Vaccine 25mcg/0.5mL vial/Syr IM ONE (20:00)
[2022-08-20] MEDS: BACITRACIN OINT 0.9 GM PKT EXT SCH (20:32)
[2022-08-20] MEDS: HEPARIN SOD 5,000 UNIT/0.5 ML VIAL SQ SCH (20:32)
[2022-08-21] MEDS: SODIUM CHLORIDE 0.9% 1000ML 1,000 ML IV SCH ×2 (04:32→16:06)
[2022-08-21 08:26] LABS: Basophils # (auto) 0.03 K/uL (0-0.2); Basophils % (auto) 0.4 %; Eosinophils # (auto) 0.17 K/uL (0-0.50); Eosinophils % (auto) 2.4 %; Hematocrit (blood only) 32.4 % (37.0-47.0); Hemoglobin 10.5 g/dl (12.0-16.0); Immature Granulocytes # (auto) 0.03 K/uL (0.01-0.20); Immature Granulocytes % (auto) 0.4 %; Lymphocytes # (auto) 1.64 K/uL (1.2-3.4); Lymphocytes % (auto) 23.5 %; Mean Corpuscular Hemoglobin 30.6 pg (25.0-34.0); Mean Corpuscular Hgb Conc 32.4 g/dL (32.0-36.0); Mean Corpuscular Volume 94.5 fL (80.0-100.0); Mean Platelet Volume 9.1 fL (9.4-12.4); Monocytes # (auto) 0.56 K/uL (0.11-0.59); Neutrophils # (auto) 4.54 K/uL (1.40-6.50); Neutrophils % (auto) 65.3 %; Platelet Count 266 K/uL (130-400); RDW Coefficient of Variation 13.4 % (11.5-14.5); RDW Standard Deviation 46.5 fL (36.4-46.3); Red Blood Count 3.43 M/uL (4.20-5.40); White Blood Count 6.97 K/ul (4.8-10.8)
[2022-08-21 08:44] LABS: BUN Creatinine Ratio 17.5 (10-20); Calcium 8.1 mg/dl (8.6-10.3); Creatinine Clr Calc Pharmacy 11.7 ml/min; Est GFR (African American) 26.3 ml/min; Est GFR (Non-African American) 22.7 ml/min; Potassium 4.4 mmol/L (3.5-5.1)
[2022-08-21] MEDS: ONDANSETRON INJ 2 MG/ML 2 ML VIAL IV PRN (08:57)
[2022-08-21] MEDS: BACITRACIN OINT 0.9 GM PKT EXT SCH ×2 (09:45→14:41)
[2022-08-21] MEDS: HEPARIN SOD 5,000 UNIT/0.5 ML VIAL SQ SCH ×2 (09:45→22:40)
[2022-08-21 10:18] LABS: Lyme Ab IgG w/WB Rflx Negative (Negative); Lyme Ab IgM w/WB Rflx Negative (Negative)
[2022-08-21 11:07] LABS: Vitamin B12 587 pg/ml (180-914)
--- NOTE | 2022-08-21 18:56 | Hospitalist Progress Note ---
Date of Service August 21, 2022 Assessment & Plan (1) AMS (altered mental status): (2) Dementia: (3) Hypothermia: (4) CKD (chronic kidney disease): (5) PAF (paroxysmal atrial fibrillation): (6) Chronic kidney disease (CKD), stage IV (severe): (7) HLD (hyperlipidemia): (8) HTN (hypertension): (9) Tachy-jacque syndrome: Plan 87yoF with PMHx significant for progressing dementia but lives alone, paroxysmal atrial fibrillation, tachy-jacque syndrome s/p pacemaker placement, HTN, HLD, CKD who was brought in by her neighbor who is her POA after being found sleeping under a tree. Dementia -H&P note reviewed. Examined patient at bedside. Seems pretty bad dementia. Delirium precautions. Seen by PT OT and recommended rehab, however patient declining. CM following. Hypothermia -Resolved. Likely environmental. Work-up negative for infection PAF/tachy jacque syndrome/HTN/CAD Not currently on anticoagulation for PAF, previous cardiology notes noted increased risk of bleeding due to falls Continue home aspirin with diltiazem and metoprolol s/p pacemaker placement for tachy jacque syndrome- interrogated per request by ED doc. Showed abnormal rhythms in May, none currently. Continue to monitor on the telemetry floor. CKD EPIC chart review notes new baseline of Cr 1.9 in May 2022. Creatinine at baseline DVT prophylaxis: Heparin SQ q12h CODE STATUS: DNR/DNI, per POA and front page of POLST reviewed in [facility] Dispo: PT OT recommends rehab. CM following Admission and Anticipated Discharge Date Admission Date: August 20, 2022 Subjective Patient was seen and examined at bedside. She is awake, alert, oriented to self. She did not ever know her birthday or her home address. States she feels good and she has been taking good care of. Denies any fever, chills, chest pain or shortness of nausea or vomiting. Review of Systems Review of Systems: Unobtainable due to cognitive status Physical Exam Physical Exam: General: Sitting comfortably in bed, not in distress, on room air HEENT: ELIZA, MMM Chest: Clear breath sounds bilaterally, no wheezes or crackles CVS: Regular rate and rhythm, normal heart sounds, no murmur Abdomen: Soft, non tender, not distended, normal bowel sounds Neuro: Awake, alert, oriented to self only, conversing appropriately, answering simple question Extremities: No cyanosis, clubbing or edema Psychiatry: Calm, cooperative, not agitated Results & Data Results & Data Vital Signs (Past 12 Hours) Vital Signs Temp Pulse Pulse Resp BP BP Pulse Ox 08/21/22 15:06 36.6 C 78 17 147/78 H 92 08/21/22 14:05 70 08/21/22 11:01 36.9 C 73 16 146/80 H 98 08/21/22 07:00 69 08/21/22 08:00 08/21/22 07:35 36.4 C L 71 18 175/91 H 99 O2 Del Method 08/21/22 15:06 Room Air 08/21/22 14:05 08/21/22 11:01 Room Air 08/21/22 07:00 08/21/22 08:00 Room Air 08/21/22 07:35 Room Air Laboratory Results Short CBC 08/21/22 Range/Units 07:57 WBC 6.97 (4.8-10.8) K/ul Hgb 10.5 L (12.0-16.0) g/dl Hct 32.4 L (37.0-47.0) % Plt Count 266 (130-400) K/uL BMP 08/21/22 07:57 Sodium 138 Potassium 4.4 Chloride 108 H Carbon Dioxide 26 BUN 34 H Creatinine 1.94 H Glucose 97 Calcium 8.1 L Medications Administered Current Inpatient Medications Acetaminophen (Acetaminophen 325 Mg Tab) 650 mg PO Q4H PRN PRN Reason: Pain or Fever Stop: 09/19/22 10:14 Al Hydrox/Mg Hydrox/Simethicone (Aluminum/Magnesium Susp 30 Ml Udc) 15 ml PO Q4H PRN PRN Reason: Dyspepsia Stop: 09/19/22 10:14 Bacitracin (Bacitracin Oint 0.9 Gm Pkt) 1 appln EXT TID [facility] Stop: 09/19/22 20:59 Last Admin: 08/21/22 14:41 Dose: 1 appln Heparin Sodium (Porcine) (Heparin Sod 5,000 Unit/0.5 Ml Vial) 5,000 units SQ Q12 DARRYN Stop: 09/19/22 20:59 Last Admin: 08/21/22 09:45 Dose: 5,000 units Sodium Chloride (Nss 1000ml) 1,000 mls @ 80 mls/hr IV .[id number] DARRYN Stop: 09/19/22 15:35 Last Admin: 08/21/22 16:06 Dose: 80 mls/hr Lorazepam (Lorazepam 2 Mg/1 Ml Vial) 0.5 mg IV Q8H PRN PRN Reason: Anxiety/Agitation Stop: 09/19/22 15:35 Ondansetron HCl (Ondansetron Inj 2 Mg/Ml 2 Ml Vial) 4 mg IV Q6H PRN PRN Reason: Nausea Stop: 09/19/22 10:14 Last Admin: 08/21/22 08:57 Dose: 4 mg Polyethylene Glycol (Polyethylene (Miralax) 17 Gm Pack) 17 gm PO DAILY PRN PRN Reason: Constipation Stop: 09/19/22 10:14 (1) AMS (altered mental status) Altered mental status type: unspecified Qualified Code(s): R41.82 - Altered mental status, unspecified
[2022-08-21] MEDS: BACITRACIN OINT 15 GM TUBE EXT SCH (22:40)
--- NOTE | 2022-08-22 07:08 | Electrocardiogram Report ---
Test Reason : Blood Pressure : / mmHG Vent. Rate : 075 BPM Atrial Rate : 075 BPM P-R Int : 210 ms QRS Dur : 064 ms QT Int : 432 ms P-R-T Axes : 000 -05 037 degrees QTc Int : 482 ms Atrial-paced rhythm with prolonged AV conduction Premature atrial complexes Nonspecific T wave abnormality Prolonged QT Abnormal ECG When compared with ECG of 24-MAR-2019 16:43, Minimal criteria for Anterior infarct are no longer Present Inverted T waves have replaced nonspecific T wave abnormality in Anterior leads Confirmed by Bishnu Quach ([id number]) on 08/22/2022 7:07:49 AM Referred By: Confirmed By:Bishnu Quach
[2022-08-22 07:29] LABS: Basophils # (auto) 0.04 K/uL (0-0.2); Basophils % (auto) 0.5 %; Eosinophils # (auto) 0.23 K/uL (0-0.50); Eosinophils % (auto) 2.9 %; Hematocrit (blood only) 27.6 % (37.0-47.0); Hemoglobin 9.1 g/dl (12.0-16.0); Immature Granulocytes # (auto) 0.03 K/uL (0.01-0.20); Immature Granulocytes % (auto) 0.4 %; Lymphocytes # (auto) 1.39 K/uL (1.2-3.4); Lymphocytes % (auto) 17.7 %; Mean Corpuscular Hemoglobin 30.8 pg (25.0-34.0); Mean Corpuscular Volume 93.6 fL (80.0-100.0); Mean Platelet Volume 9.3 fL (9.4-12.4); Monocytes # (auto) 0.79 K/uL (0.11-0.59); Neutrophils # (auto) 5.39 K/uL (1.40-6.50); Neutrophils % (auto) 68.5 %; Platelet Count 237 K/uL (130-400); RDW Coefficient of Variation 13.5 % (11.5-14.5); Red Blood Count 2.95 M/uL (4.20-5.40); White Blood Count 7.87 K/ul (4.8-10.8)
[2022-08-22 07:35] LABS: BUN Creatinine Ratio 20.3 (10-20); Calcium 7.7 mg/dl (8.6-10.3); Creatinine Clr Calc Pharmacy 13.9 ml/min; Est GFR (African American) 30.5 ml/min; Est GFR (Non-African American) 26.3 ml/min; Potassium 4.9 mmol/L (3.5-5.1)
[2022-08-22] MEDS: BACITRACIN OINT 15 GM TUBE EXT SCH ×3 (07:45→21:27)
[2022-08-22] MEDS: HEPARIN SOD 5,000 UNIT/0.5 ML VIAL SQ SCH ×2 (07:45→21:27)
[2022-08-22] MEDS: SODIUM CHLORIDE 0.9% 1000ML 1,000 ML IV SCH (08:34)
[2022-08-22 11:22] LABS: Hematocrit (blood only) 28.9 % (37.0-47.0); Hemoglobin 9.4 g/dl (12.0-16.0)
--- NOTE | 2022-08-22 13:53 | Hospitalist Progress Note ---
Date of Service August 22, 2022 Assessment & Plan (1) AMS (altered mental status): (2) Dementia: (3) Hypothermia: (4) CKD (chronic kidney disease): (5) PAF (paroxysmal atrial fibrillation): (6) Chronic kidney disease (CKD), stage IV (severe): (7) HLD (hyperlipidemia): (8) HTN (hypertension): (9) Tachy-jacque syndrome: Plan 87yoF with PMHx significant for progressing dementia but lives alone, paroxysmal atrial fibrillation, tachy-jacque syndrome s/p pacemaker placement, HTN, HLD, CKD who was brought in by her neighbor who is her POA after being found sleeping under a tree. Dementia -H&P note reviewed. Examined patient at bedside. Seems pretty bad dementia. Delirium precautions. Reviewed PT OT recommendations and discussed about rehab to the patient, she is contemplating about the option but she would really like to go home if she can. She states her friend Janeth will be visiting her whenever she needs. I tried calling her friend multiple times to discuss home arrangement, safety and her availability but I was unable to reach her. She can be discharged home or rehab once home safety issues and her friend's availability figured out. Hypothermia -Resolved. Likely environmental. Work-up negative for infection PAF/tachy jacque syndrome/HTN/CAD Not currently on anticoagulation for PAF, previous cardiology notes noted increased risk of bleeding due to falls Continue home aspirin with diltiazem and metoprolol s/p pacemaker placement for tachy jacque syndrome- interrogated per request by ED doc. Showed abnormal rhythms in May, none currently. Continue to monitor on the telemetry floor. CKD EPIC chart review notes new baseline of Cr 1.9 in May 2022. Creatinine at baseline DVT prophylaxis: Heparin SQ q12h CODE STATUS: DNR/DNI, per POA and front page of POLST reviewed in EPIC Dispo- As above Admission and Anticipated Discharge Date Admission Date: August 20, 2022 Subjective Patient was seen and examined at bedside. Discussed about rehab prior to returning home. She is contemplating about that option but states she would really want to go home if she can. States her friend Janeth will come visit her. I tried calling her friend Janeth multiple times without success Review of Systems Review of Systems: Unobtainable due to cognitive status Physical Exam Physical Exam: General: Sitting comfortably in bed, not in distress, on room air HEENT: ELIZA, MMM Chest: Clear breath sounds bilaterally, no wheezes or crackles CVS: Regular rate and rhythm, normal heart sounds, no murmur Abdomen: Soft, non tender, not distended, normal bowel sounds Neuro: Awake, alert, oriented to self only, conversing appropriately, answering simple question Extremities: No cyanosis, clubbing or edema Psychiatry: Calm, cooperative, not agitated Results & Data Results & Data Vital Signs (Past 12 Hours) Vital Signs Temp Pulse Pulse Resp BP BP Pulse Ox 08/22/22 12:48 169/89 H 08/22/22 07:15 71 08/22/22 11:00 36.7 C 67 16 184/80 H 97 08/22/22 07:06 36.4 C L 68 16 171/82 H 98 08/22/22 03:00 37.1 C 85 20 160/96 H 92 O2 Del Method 08/22/22 12:48 08/22/22 07:15 08/22/22 11:00 Room Air 08/22/22 07:06 Room Air 08/22/22 03:00 Room Air Laboratory Results Short CBC 08/22/22 08/22/22 Range/Units 06:48 11:04 WBC 7.87 (4.8-10.8) K/ul Hgb 9.1 L 9.4 L (12.0-16.0) g/dl Hct 27.6 L 28.9 L (37.0-47.0) % Plt Count 237 (130-400) K/uL BMP 08/22/22 06:48 Sodium 139 Potassium 4.9 Chloride 110 H Carbon Dioxide 25 BUN 35 H Creatinine 1.72 H Glucose 83 Calcium 7.7 L Medications Administered Current Inpatient Medications Acetaminophen (Acetaminophen 325 Mg Tab) 650 mg PO Q4H PRN PRN Reason: Pain or Fever Stop: 09/19/22 10:14 Al Hydrox/Mg Hydrox/Simethicone (Aluminum/Magnesium Susp 30 Ml Udc) 15 ml PO Q4H PRN PRN Reason: Dyspepsia Stop: 09/19/22 10:14 Bacitracin (Bacitracin Oint 15 Gm Tube) 1 appln EXT TID DARRYN Stop: 09/20/22 20:59 Last Admin: 08/22/22 07:45 Dose: 1 appln Heparin Sodium (Porcine) (Heparin Sod 5,000 Unit/0.5 Ml Vial) 5,000 units SQ Q12 DARRYN Stop: 09/19/22 20:59 Last Admin: 08/22/22 07:45 Dose: 5,000 units Lorazepam (Lorazepam 2 Mg/1 Ml Vial) 0.5 mg IV Q8H PRN PRN Reason: Anxiety/Agitation Stop: 09/19/22 15:35 Ondansetron HCl (Ondansetron Inj 2 Mg/Ml 2 Ml Vial) 4 mg IV Q6H PRN PRN Reason: Nausea Stop: 09/19/22 10:14 Last Admin: 08/21/22 08:57 Dose: 4 mg Polyethylene Glycol (Polyethylene (Miralax) 17 Gm Pack) 17 gm PO DAILY PRN PRN Reason: Constipation Stop: 09/19/22 10:14 (1) AMS (altered mental status) Altered mental status type: unspecified Qualified Code(s): R41.82 - Altered mental status, unspecified
[2022-08-22] MEDS ORDERED: amLODIPine BESYLATE 5 MG TAB PO SCH (17:45)
[2022-08-22] MEDS ORDERED: TAMSULOSIN HCL 0.4 MG CAP PO SCH (21:00)
[2022-08-23 07:26] LABS: Basophils # (auto) 0.02 K/uL (0-0.2); Basophils % (auto) 0.3 %; Eosinophils % (auto) 2.6 %; Hemoglobin 9.9 g/dl (12.0-16.0); Immature Granulocytes # (auto) 0.02 K/uL (0.01-0.20); Immature Granulocytes % (auto) 0.3 %; Lymphocytes # (auto) 1.32 K/uL (1.2-3.4); Lymphocytes % (auto) 16.9 %; Mean Corpuscular Hemoglobin 30.8 pg (25.0-34.0); Mean Corpuscular Volume 93.5 fL (80.0-100.0); Mean Platelet Volume 9.2 fL (9.4-12.4); Monocytes # (auto) 0.68 K/uL (0.11-0.59); Monocytes % (auto) 8.7 %; Neutrophils # (auto) 5.59 K/uL (1.40-6.50); Neutrophils % (auto) 71.2 %; Platelet Count 253 K/uL (130-400); RDW Coefficient of Variation 13.2 % (11.5-14.5); RDW Standard Deviation 45.2 fL (36.4-46.3); Red Blood Count 3.21 M/uL (4.20-5.40); White Blood Count 7.83 K/ul (4.8-10.8)
[2022-08-23 07:40] LABS: BUN Creatinine Ratio 20.3 (10-20); Calcium 8.2 mg/dl (8.6-10.3); Creatinine Clr Calc Pharmacy 13.9 ml/min; Est GFR (African American) 30.5 ml/min; Est GFR (Non-African American) 26.3 ml/min
[2022-08-23] MEDS: HEPARIN SOD 5,000 UNIT/0.5 ML VIAL SQ SCH ×2 (08:59→20:29)
[2022-08-23] MEDS: BACITRACIN OINT 15 GM TUBE EXT SCH ×3 (08:59→20:29)
[2022-08-23] MEDS ORDERED: amLODIPine BESYLATE 5 MG TAB PO SCH (09:00)
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
[2022-08-23] MEDS ORDERED: amLODIPine BESYLATE 5 MG TAB PO ONE (20:52)
[2022-08-24] MEDS ORDERED: cloNIDine HCL 0.1 MG TAB PO ONE (00:37)
[2022-08-24] MEDS: BACITRACIN OINT 15 GM TUBE EXT SCH ×3 (08:17→19:59)
[2022-08-24] MEDS: HEPARIN SOD 5,000 UNIT/0.5 ML VIAL SQ SCH ×2 (08:18→19:59)
[2022-08-24] MEDS: amLODIPine BESYLATE 5 MG TAB PO SCH (08:18)
[2022-08-24 08:59] LABS: Hematocrit (blood only) 32.1 % (37.0-47.0); Hemoglobin 10.6 g/dl (12.0-16.0); Mean Corpuscular Hemoglobin 30.9 pg (25.0-34.0); Mean Corpuscular Volume 93.6 fL (80.0-100.0); Mean Platelet Volume 9.1 fL (9.4-12.4); Platelet Count 287 K/uL (130-400); RDW Coefficient of Variation 13.5 % (11.5-14.5); RDW Standard Deviation 46.1 fL (36.4-46.3); Red Blood Count 3.43 M/uL (4.20-5.40); White Blood Count 7.66 K/ul (4.8-10.8)
[2022-08-24 09:16] LABS: BUN Creatinine Ratio 22.2 (10-20); Calcium 8.5 mg/dl (8.6-10.3); Creatinine Clr Calc Pharmacy 13.9 ml/min; Est GFR (African American) 31.6 ml/min; Est GFR (Non-African American) 27.2 ml/min; Potassium 4.8 mmol/L (3.5-5.1)
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
[2022-08-25] MEDS: BACITRACIN OINT 15 GM TUBE EXT SCH ×3 (08:29→19:32)
[2022-08-25] MEDS: HEPARIN SOD 5,000 UNIT/0.5 ML VIAL SQ SCH ×2 (08:29→19:33)
[2022-08-25] MEDS: amLODIPine BESYLATE 5 MG TAB PO SCH (08:29)
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
[2022-08-26] MEDS: BACITRACIN OINT 15 GM TUBE EXT SCH ×3 (09:31→20:26)
[2022-08-26] MEDS: amLODIPine BESYLATE 5 MG TAB PO SCH (09:31)
[2022-08-26] MEDS: HEPARIN SOD 5,000 UNIT/0.5 ML VIAL SQ SCH ×2 (09:31→20:26)
[2022-08-27] MEDS: amLODIPine BESYLATE 5 MG TAB PO SCH (08:45)
[2022-08-27] MEDS: BACITRACIN OINT 15 GM TUBE EXT SCH ×3 (08:46→21:48)
[2022-08-27] MEDS: HEPARIN SOD 5,000 UNIT/0.5 ML VIAL SQ SCH ×2 (08:46→21:48)
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
[2022-08-27] MEDS: ACETAMINOPHEN 325 MG TAB PO PRN (21:48)
[2022-08-27] MEDS: ONDANSETRON INJ 2 MG/ML 2 ML VIAL IV PRN (21:48)
[2022-08-28] MEDS: amLODIPine BESYLATE 5 MG TAB PO SCH (08:16)
[2022-08-28] MEDS: HEPARIN SOD 5,000 UNIT/0.5 ML VIAL SQ SCH ×2 (08:16→21:00)
[2022-08-28] MEDS: BACITRACIN OINT 15 GM TUBE EXT SCH ×3 (08:16→21:01)
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
[2022-08-28] MEDS ORDERED: bisacodyL 10 MG SUPP PR STA (21:30)
[2022-08-28] MEDS: ACETAMINOPHEN 325 MG TAB PO PRN (21:59)
[2022-08-29] MEDS: amLODIPine BESYLATE 5 MG TAB PO SCH (08:44)
[2022-08-29] MEDS: BACITRACIN OINT 15 GM TUBE EXT SCH (08:44)
[2022-08-29] MEDS: HEPARIN SOD 5,000 UNIT/0.5 ML VIAL SQ SCH (08:44)
[2022-08-29] MEDS ORDERED: METOPROLOL SUCC 50MG EXT REL TAB PO SCH (11:15)
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
[2022-08-30] MEDS ORDERED: dilTIAZem HCL 120 MG CAPCR PO SCH (09:00)
== END 2022-08-29 14:08 | DRG 884 ==
LOC: 2W 07:56 → ED 07:56 → SUATTDRO 10:16 → 2W 14:48 → 2N 21:16 → SUATTDRO 08-22 15:13